=== PATIENT | male | born 1935 ===

== ENCOUNTER 2017-07-10 19:16 | Inpatient (IN) | payer BC, MEDICARE ==
[2017-07-10] MEDS ORDERED: Iodixanol 320 MG/ML 100 ML BOTTLE IV ONE (19:26)
--- NOTE | 2017-07-10 19:27 | C.PDOC ---
History Of Present Illness 81 year old male, whose PMHx includes HTN and Diabetes, is brought to the ED by EMS for evaluation after family found him unresponsive prior to arrival. As per family, patient was consuming food when he suddenly became unresponsive and showed agonal breathing. Upon EMS arrival, patient was found to have left-sided gaze with agonal breathing. Patient was intubated by EMS prior to ED arrival. As per family, patient is mildly confused at baseline but is ambulatory and verbal. Additional history is limited secondary to patient's clinical condition. Time Seen by Provider: 07/10/17 19:21 Chief Complaint (Nursing): Altered Mental Status History Per: Patient, EMS, Family History/Exam Limitations: Clinical Condition Onset/Duration Of Symptoms: Hrs Onset Of Symptoms: Cannot Confirm Onset Current Symptoms Are (Timing): Still Present Usual Baseline: Alert Confused, Ambulatory. denies: Non-verbal Exacerbating Factor(s): Unknown Additional History Per: EMS, Family Past Medical History Reviewed: Historical Data, Nursing Documentation, Vital Signs Vital Signs: Last Vital Signs Temp 98.1 F 07/24/17 16:37 Pulse 77 07/24/17 16:37 Resp 20 07/24/17 16:37 BP 139/62 07/24/17 16:37 Pulse Ox 98 07/24/17 16:37 - Medical History PMH: Diabetes, HTN Surgical History: No Surg Hx Family History: States: Unknown Family Hx Review Of Systems Review Of Systems: ROS cannot be obtained secondary to pt's inabilty to answer questions. Physical Exam - Physical Exam Appears: Non-toxic, Other (intubated, paralyzed ) Skin: Normal Color, Warm, Dry Head: Atraumatic, Normacephalic Eye(s): bilateral: Normal Inspection Oral Mucosa: Moist Neck: Supple Chest: Symmetrical, No Deformity, No Tenderness Cardiovascular: Rhythm Regular, No Murmur Respiratory: Normal Breath Sounds, No Rales, No Rhonchi, No Wheezing Extremity: Capillary Refill (less than 2 seconds ) ED Course And Treatment - Laboratory Results Result Diagrams: 07/23/17 07:35 07/23/17 07:35 ECG: Interpreted By Me, Viewed By Me ECG Rhythm: Sinus Rhythm, R BBB Interpretation Of ECG: Normal Sinus Rhythm at rate 73bpm. Right Bundle Branch Block. No previous EKG for comparison. Rate From EC - CT Scan/US CT Head Other Rad Studies (CT/US): Interpreted By Me, Read By Radiologist, Radiology Report Reviewed CT/US Interpretation: EXAM: CT Head Without Intravenous Contrast. EXAM DATE/ TIME: 07/10/2017 7:21 PM. CLINICAL HISTORY: 81 years old, male; Injury or trauma; Injury Unrespond; Initial encounter; Additional info: Code stroke. TECHNIQUE: Axial computed tomography images of the head/brain without intravenous contrast. All CT scans at. this facility use one or more dose reduction techniques, viz.: automated exposure control; ma/kV. adjustment per patient size (including targeted exams where dose is matched to indication; i.e. head);. or iterative reconstruction technique. Coronal and sagittal reformatted images were created and reviewed. COMPARISON: No relevant prior studies available. FINDINGS: Brain: Generalized atrophy and chronic white matter ischemic changes. There is no mass or acute. infarct. No hemorrhage. Ventricles: Unremarkable. No ventriculomegaly. Bones/joints: Unremarkable. No acute fracture. Soft tissues: Unremarkable. Sinuses: Minimal sinus because of thickening. No acute sinusitis. Mastoid air cells: Unremarkable as visualized. No mastoid effusion. IMPRESSION: No acute findings. CTA Head Other Rad Studies (CT/US): Interpreted By Me, Read By Radiologist, Radiology Report Reviewed CT/US Interpretation: EXAM: CT Angiography Head With Intravenous Contrast. CLINICAL HISTORY: 81 years old, male; Pain; Headache; Additional info: Stroke code. TECHNIQUE: Axial computed tomographic angiography images of the head with intravenous contrast using CT. angiography protocol. All CT scans at this facility use one or more dose reduction techniques, viz.: automated exposure control; ma/kV adjustment per patient size (including targeted exams where. dose is matched to indication; i.e. head); or iterative reconstruction technique. MIP reconstructed images were created and reviewed. Coronal and sagittal reformatted images were created and reviewed. CONTRAST: 100 mL of [id number] administered intravenously. COMPARISON: No relevant prior studies available. FINDINGS: Right internal carotid artery: No acute findings. Intracranial segment is patent with no significant. stenosis. No aneurysm. Right anterior cerebral artery: Unremarkable. No occlusion or significant stenosis. No aneurysm. Right middle cerebral artery: Unremarkable. No occlusion or significant stenosis. No aneurysm. Right posterior cerebral artery: Unremarkable. No occlusion or significant stenosis. No aneurysm. Right vertebral artery: Unremarkable as visualized. Left internal carotid artery: No acute findings. Intracranial segment is patent with no significant. stenosis. No aneurysm. Left anterior cerebral artery: Unremarkable. No occlusion or significant stenosis. No aneurysm. Left middle cerebral artery: Unremarkable. No occlusion or significant stenosis. No aneurysm. Left posterior cerebral artery: Unremarkable. No occlusion or significant stenosis. No aneurysm. Left vertebral artery: Unremarkable as visualized.Basilar artery: Unremarkable. No occlusion or significant stenosis. No aneurysm. IMPRESSION: Normal head CTA CTA Neck Other Rad Studies (CT/US): Interpreted By Me, Read By Radiologist, Radiology Report Reviewed CT/US Interpretation: EXAM: CT Angiography Neck With Intravenous Contrast. EXAM DATE/TIME: 07/10/2017 7:21 PM. CLINICAL HISTORY: 81 years old, male; Pain ; Headache; Additional info: Stroke code. TECHNIQUE: Axial computed tomographic angiography images of the neck with intravenous contrast using CT. angiography protocol. All CT scans at this facility use one or more dose reduction techniques, viz.: automated exposure control; ma/kV adjustment per patient size (including targeted exams where. dose is matched to indication; i.e. head); or iterative reconstruction technique. MIP reconstructed images were created and reviewed. Coronal and sagittal reformatted images were created and reviewed. CONTRAST: 100 mL of administered intravenously. COMPARISON: CT - HEAD W/O (CODE STROKE) 2017-07-10 19:42. FINDINGS: VASCULATURE: Right common carotid artery: Unremarkable. No significant stenosis. No dissection or occlusion. Right internal carotid artery : Unremarkable. Extracranial segment is patent with no significant. stenosis. No dissection or occlusion. Right external carotid artery: Unremarkable. No occlusion. Right vertebral artery: Unremarkable. No significant stenosis. No dissection or occlusion. Left common carotid artery: Unremarkable. No significant stenosis. No dissection or occlusion. Left internal carotid artery : Unremarkable. Extracranial segment is patent with no significant. stenosis. No dissection or occlusion. Left external carotid artery: Unremarkable. No occlusion. Left vertebral artery: Unremarkable. No significant stenosis. No dissection or occlusion. NECK: Bones/joints: No acute fracture. No dislocation. Soft tissues: Unremarkable as visualized. No mass.Tubes, lines and devices: The tip of the endotracheal tube extends into the right mainstem. bronchus. CAROTID STENOSIS REFERENCE USING NASCET CRITERIA: % ICA stenosis = ( 1 - narrowest ICA diameter/diameter of distal cervical ICA) x 100. Mild - <50% stenosis. Moderate - 50-69% stenosis. Severe - 70-94% stenosis. Near occlusion - 95-99% stenosis. Occluded - 100% stenosis. IMPRESSION: No acute vascular findings. Please note the tip of the endotracheal tube extends into the right mainstem bronchus. NIHSS Stroke Scale - How Severe is the Stoke Level of Consciousness: 3=Unresponsive LOC to Questions: 2=Neither correct LOC to commands: 2=Neither correct Best Gaze: 0=Normal Visual: 0=No visual loss Facial: 0=Normal Motor Arm - Left: NA - Amputation, joint fusion Motor Arm - Right: NA - Amputation, joint fusion Motor Leg - Left: NA - Amputation, joint fusion Motor Leg - Right: NA - Amputation, joint fusion Limb Ataxia: 0=Absent Sensory: 0=Normal Best Language: 3=Mute Dysarthia: 2=Severe, near unintelligible or worse Extinction & Inattention (Neglect): 0=Normal, no object Score: 12 Severity Of Stroke: 5-15= Moderate Stroke (pt paralyzed. unable to access) rTPA Inclusion/Exclusion - Refusal of Treatment Patient Refused Treatment: No - Inclusion Criteria for Altepase Patient is 18 years or Older: Yes Clinical DX Ischemic Stroke Cause Neurological Deficit: Yes Time of Onset Established Less Than 270 Mins Before TX Begin: No Risk/Benefit Discussed With Patient/Family Member Present: Yes Medical Decision Making Medical Decision Making: consider stroke, intracranial bleeding, infectious, cardiac etiology Progress: Bloodwork, CXR, CTA Head, CT Head, EKG ordered. IV Fluids administered. 20:[address] Boykin (neurologist afternoon nanny). Patient is not a TPA candidate. Patient had a seizure en route to ED. during ed course, pt became unresponive. pulseless, rosc s/p 1 epi cpr. pt with to complete heart block, resolved s/p atropine 1. dicussed wtih dr johnson not code heart candidiate. ekg rbbb ?pe. heparin started. accepte dicu. antibiotics started given leukocytosis , la. hyperk treated. nih- pt intubated, paralyzed unable to access. Disposition - Disposition Disposition: HOSPITALIZED Disposition Time: 11:00 Condition: CRITICAL - Clinical Impression Clinical Impression: Cardiac arrest, Hyperkalemia, Unresponsive, Respiratory failure, Heart block - Scribe Statement The provider has reviewed the documentation as recorded by the Scribe (Daria Johnson) Provider Attestation: All medical record entries made by the Scribe were at my direction and personally dictated by me. I have reviewed the chart and agree that the record accurately reflects my personal performance of the history, physical exam, medical decision making, and the department course for this patient. I have also personally directed, reviewed, and agree with the discharge instructions and disposition. Decision To Admit - Pt Status Changed To: Hospital Disposition Of: Inpatient - Admit Certification Admit to Inpatient:: After my assessment, the patient will require hospitalization for at least two midnights. This is because of the severity of symptoms shown, intensity of services needed, and/or the medical risk in this patient being treated as an outpatient. - InPatient: Physician Admission Certification:: need icu - . Bed Request Type: ICU Admitting Physician: Kartik Rea Patient Diagnosis: Cardiac arrest, Hyperkalemia, Unresponsive, Respiratory failure, Heart block
[2017-07-10] MEDS ORDERED: Sodium Chloride 0.9% 1,000 ML IV SCH (19:30)
[2017-07-10 20:21] LABS: VENOUS BLOOD GAS BASE EXCESS -6.3 mmol/L (0.0-2.0); VENOUS BLOOD GAS PCO2 66 mmHg (40-60); VENOUS BLOOD GAS PO2 41 mm/Hg (30-55); VENOUS BLOOD PH 7.16 (7.32-7.43)
[2017-07-10 20:25] LABS: BASO # 0.1 K/uL (0.0-0.2); BASO % 0.7 % (0.0-2.0); EOS # 0.4 K/uL (0.0-0.7); EOS % 3.4 % (0.0-4.0); LYMPH # 2.7 K/uL (1.0-4.3); LYMPH % 21.1 % (20.0-40.0); MEAN CELL VOLUME 78.3 fL (80.0-94.0); MEAN CORPUSCULAR HEMOGLOBIN 23.9 pg (27.0-31.0); MEAN CORPUSCULAR HGB CONC 30.6 g/dL (33.0-37.0); MEAN PLATELET VOLUME 8.4 fL (7.2-11.7); MONO % 7.6 % (0.0-10.0); NEUT # 8.5 K/uL (1.8-7.0); NEUT % 67.2 % (50.0-75.0); NRBC % 0.1 % (0.0-2.0); RBC 4.17 Mil/uL (4.40-5.90); RED CELL DISTRIBUTION WIDTH 21.5 % (11.5-14.5); WHITE BLOOD COUNT 12.7 K/uL (4.8-10.8)
[2017-07-10] MEDS ORDERED: Sodium Chloride 0.9% 500 ML IV ONE (20:26)
[2017-07-10] MEDS ORDERED: Vancomycin 1 gm/NS 200 ml 1 GM/200 ML BAG IVPB STA (20:32)
[2017-07-10] MEDS ORDERED: Piperacillin/Tazobact 3.375 gm 100 ML IVPB STA (20:32)
[2017-07-10 20:33] LABS: INR 1.2; PROTHROMBIN TIME 13.2 SECONDS (9.7-12.2)
[2017-07-10 20:36] LABS: ALB/GLOB RATIO 1.1 (1.0-2.1); ALBUMIN 3.5 g/dL (3.5-5.0); ALT/SGPT 13 U/L (21-72); AST/SGOT 31 U/L (17-59); BLOOD UREA NITROGEN 27 mg/dL (9-20); GFR AFRICAN-AMERICAN 59; GFR NON-AFRICAN AMERICAN 49; HDL CHOLESTEROL 16 mg/dL (30-70)
[2017-07-10] MEDS ORDERED: EPINEPHrine 1 mg/ml (1:1000) Inj IV ONE ×2 (20:39→21:00)
[2017-07-10 20:48] LABS: LDL CHOLESTEROL 55 mg/dL (0-129)
[2017-07-10 20:49] LABS: URINE BACTERIA RARE (<OCC); URINE BILIRUBIN NEGATIVE (NEGATIVE); URINE BLOOD NEGATIVE (NEGATIVE); URINE CLARITY Clear (Clear); URINE COLOR Yellow (YELLOW); URINE GLUCOSE (UA) 3+ mg/dL (Normal); URINE LEUKOCYTE ESTERASE NEG Leu/uL (Negative); URINE PROTEIN 2+ mg/dL (NEGATIVE); URINE UROBILINOGEN NORMAL mg/dL (0.2-1.0)
[2017-07-10] MEDS ORDERED: Piperacillin/Tazobact 3.375 gm 100 ML IVPB ONE (20:58)
[2017-07-10] MEDS ORDERED: Dextrose 50% SYRINGE Inj (50 ml) IV STA (21:34)
[2017-07-10] MEDS ORDERED: Sodium Bicarbonate (8.4%) 50 Meq Syringe IVP ONE (21:34)
[2017-07-10] MEDS ORDERED: Calcium Gluconate 4.65 mEq/10 ml Inj IVP ONE (21:34)
[2017-07-10] MEDS ORDERED: (Novolin R) Insulin Human Regular 100 units/ml vial IV ONE (21:34)
[2017-07-10 21:40] LABS: ABG ALLEN TEST P; ARTERIAL BLOOD GAS O2 SAT 98.9 % (95-98); ARTERIAL BLOOD GAS PCO2 37 mm/Hg (35-45); ARTERIAL BLOOD GAS PH 7.32 (7.35-7.45); ARTERIAL BLOOD GAS PO2 329 mm/Hg (80-100); ARTERIAL BLOOD GAS TCO2 20.2 mmol/L (22-28)
--- NOTE | 2017-07-10 21:45 | CP.PCM.CON ---
History of Present Illness - History of Present Illness History of Present Illness: CCM 81 yo male with hx HTN/DM/CABG/ Mild confusion developed decreased responsiveness and agonal breathing after eating. Pt BIBEMS afgter intubation in field. Had seizure en route to ED. While in ED had CB and cynthia then brief arrest in ED. Required 1 epi /cpr. Pt unable to give hx. CT head neg. and no TPA as per Neurology. ED discussed case with Interventional cardiology and no Cath. Pt receiving 2nd liter IV fluid when seen in ED. ROS-as noted All- [id number]/ ex ETOH/ no drugs Meds-reviewed FH- Unknown PE T- 99.1 P-105 R-22 BP- 104/60 Intubated, unresponsive Perrl Neck- No jvdlungs- bilat bs heawrt-rr aBd- benign eXt- no edema Neuro-no movement to pain Labs, EKG's, [id number] A&P Resp Failure s/p CHB /Cynthia s/p Cardiac Arrest Resp Acidosis Hyperkalemia s/p Seizure Hx HTN DM Hx CABG ADmit to ICU cont IV fluid treat hyperkalemia repeat labs/ ABG/LActate/ CE cont vent support ECHO CTA pending maintain optimal lytes Neuro checks AC started by ED GI prophylaxis Past Patient History - Past Social History Smoking Status: Unknown If Ever Smoked - CARDIAC Hx Hypertension: Yes - ENDOCRINE/METABOLIC Hx Diabetes Mellitus Type 2: Yes - PSYCHIATRIC Hx Substance Use: No (UNKNOWN) - SURGICAL HISTORY Hx Coronary Artery Bypass Graft: Yes Meds Allergies/Adverse Reactions: Allergies Allergy/AdvReac Type Severity Reaction Status Date / Time No Known Allergies Allergy Verified 07/10/17 19:23 - Medications Medications: Current Medications Sodium Chloride (Sodium Chloride 0.9%) 1,000 mls @ 100 mls/hr IV .Q10H LITTLE Last Admin: 07/10/17 20:54 Dose: 100 mls/hr Vancomycin/Sodium Chloride (Vancomycin 1 Gm/Ns 200 Ml) 1 gm in 200 mls @ 133 mls/hr IVPB STAT STA PRN Reason: Protocol Stop: 07/10/17 22:02 Norepinephrine Bitartrate 4 mg (/ Sodium Chloride) 254 mls @ 15.24 mls/hr IV .[id number] PRN; Protocol; 4 MCG/MIN PRN Reason: TITRATE PER MD ORDER Heparin Sodium/Sodium Chloride (Heparin 41163 Units/250ml 1/2 Normal Saline) 25 ,000 units in 250 mls @ 17.301 mls/hr IV .[id number] PRN; Protocol; 18 UNITS/KG/HR PRN Reason: PROTOCOL Results - Vital Signs Recent Vital Signs: Last Vital Signs Temp 99.1 F 07/10/17 19:23 Pulse 70 07/10/17 20:51 Resp 18 07/10/17 20:51 BP 131/24 L 07/10/17 20:51 Pulse Ox 100 07/10/17 20:51 - Labs Result Diagrams: 07/10/17 20:21 07/10/17 20:21 Labs: Laboratory Results - last 24 hr 07/10/17 07/10/17 07/10/17 20:16 20:21 20:21 WBC 12.7 H RBC 4.17 L Hgb 10.0 L Hct 32.6 L MCV 78.3 L MCH 23.9 L MCHC 30.6 L RDW 21.5 H Plt Count 250 MPV 8.4 Neut % (Auto) 67.2 Lymph % (Auto) 21.1 [place] % (Auto) 7.6 Eos % (Auto) 3.4 Baso % (Auto) 0.7 Neut # (Auto) 8.5 H Lymph # (Auto) 2.7 [place] # (Auto) 1.0 H Eos # (Auto) 0.4 Baso # (Auto) 0.1 PT 13.2 H INR 1.2 APTT 32 pO2 41 VBG pH 7.16 L* VBG pCO2 66 H* VBG HCO3 19.0 VBG Total CO2 25.5 VBG O2 Sat (Calc) 67.5 H VBG Base Excess -6.3 L VBG Potassium 5.7 H Sodium 138.0 Chloride 105.0 Glucose 290 H Lactate 4.8 H* FiO2 100.0 PEEP 7 Crit Value Called To Dr mckeon Crit Value Called By Ga.rt Crit Value Read Back Y Blood Gas Notified Time 2019 Potassium Carbon Dioxide Anion Gap BUN Creatinine Est GFR ( Amer) Est GFR (Non-Af Amer) Random Glucose Calcium Total Bilirubin AST ALT Alkaline Phosphatase Troponin I Total Protein Albumin Globulin Albumin/Globulin Ratio Triglycerides Cholesterol LDL Cholesterol Direct HDL Cholesterol Venous Blood Potassium 5.7 H Urine Color Urine Clarity Urine pH Ur Specific [place] Urine Protein Urine Glucose (UA) Urine Ketones Urine Blood Urine Nitrate Urine Bilirubin Urine Urobilinogen Ur Leukocyte Esterase Urine WBC (Auto) Urine RBC (Auto) Urine Bacteria Blood Type Antibody Screen 07/10/17 07/10/17 07/10/17 20:21 20:21 20:35 WBC RBC Hgb Hct MCV MCH MCHC RDW Plt Count MPV Neut % (Auto) Lymph % (Auto) [place] % (Auto) Eos % (Auto) Baso % (Auto) Neut # (Auto) Lymph # (Auto) [place] # (Auto) Eos # (Auto) Baso # (Auto) PT INR APTT pO2 VBG pH VBG pCO2 VBG HCO3 VBG Total CO2 VBG O2 Sat (Calc) VBG Base Excess VBG Potassium Sodium 143 Chloride 103 Glucose Lactate FiO2 PEEP Crit Value Called To Crit Value Called By Crit Value Read Back Blood Gas Notified Time Potassium 5.6 H Carbon Dioxide 22 Anion Gap 24 H BUN 27 H Creatinine 1.4 Est GFR ( Amer) 59 Est GFR (Non-Af Amer) 49 Random Glucose 263 H Calcium 8.0 L Total Bilirubin 0.3 AST 31 ALT 13 L Alkaline Phosphatase 77 Troponin I < 0.0120 Total Protein 6.7 Albumin 3.5 Globulin 3.2 Albumin/Globulin Ratio 1.1 Triglycerides 223 H Cholesterol 110 LDL Cholesterol Direct 55 HDL Cholesterol 16 L Venous Blood Potassium Urine Color Yellow Urine Clarity Clear Urine pH 6.0 Ur Specific [place] 1.038 H Urine Protein 2+ H Urine Glucose (UA) 3+ H Urine Ketones Negative Urine Blood Negative Urine Nitrate Negative Urine Bilirubin Negative Urine Urobilinogen Normal Ur Leukocyte Esterase Neg Urine WBC (Auto) 1 Urine RBC (Auto) 4 H Urine Bacteria Rare Blood Type O POSITIVE Antibody Screen Negative Assessment & Plan (1) Respiratory failure Status: Acute (2) Cardiac arrest Status: Acute (3) Seizure Status: Acute (4) CHB (complete heart block) Status: Resolved (5) Hyperkalemia Status: Acute
[2017-07-10] MEDS: Heparin25000 units/250ml 1/2NS 25,000 UNITS/250 ML BAG IV PRN (21:48)
[2017-07-11] MEDS: Sodium Chloride 0.9% 1,000 ML IV SCH ×3 (00:14→08:17)
[2017-07-11 04:52] LABS: ARTERIAL BLOOD GAS HCO3 24.3 mmol/L (21-28); ARTERIAL BLOOD GAS HEMOGLOBIN 8.4 g/dL (11.7-17.4); ARTERIAL BLOOD GAS O2 SAT 98.5 % (95-98); ARTERIAL BLOOD GAS PCO2 34 mm/Hg (35-45); ARTERIAL BLOOD GAS PH 7.44 (7.35-7.45); ARTERIAL BLOOD GAS PO2 180 mm/Hg (80-100); ARTERIAL BLOOD GAS TCO2 24.1 mmol/L (22-28)
[2017-07-11 05:02] LABS: BASO % 0.5 % (0.0-2.0); EOS # 0.3 K/uL (0.0-0.7); EOS % 4.6 % (0.0-4.0); HEMOGLOBIN 8.2 g/dL (12.0-18.0); LYMPH % 15.9 % (20.0-40.0); MEAN CELL VOLUME 76.5 fL (80.0-94.0); MEAN CORPUSCULAR HEMOGLOBIN 23.7 pg (27.0-31.0); MEAN CORPUSCULAR HGB CONC 30.9 g/dL (33.0-37.0); MEAN PLATELET VOLUME 8.5 fL (7.2-11.7); MONO # 0.6 K/uL (0.0-0.8); MONO % 8.7 % (0.0-10.0); NEUT # 4.6 K/uL (1.8-7.0); NEUT % 70.3 % (50.0-75.0); RBC 3.45 Mil/uL (4.40-5.90); RED CELL DISTRIBUTION WIDTH 21.2 % (11.5-14.5); WHITE BLOOD COUNT 6.6 K/uL (4.8-10.8)
[2017-07-11 05:28] LABS: ALBUMIN 2.8 g/dL (3.5-5.0); ALT/SGPT 28 U/L (21-72); AST/SGOT 33 U/L (17-59); BLOOD UREA NITROGEN 23 mg/dL (9-20); CALCIUM 7.4 mg/dl (8.6-10.4); GFR AFRICAN-AMERICAN > 60; GFR NON-AFRICAN AMERICAN > 60
[2017-07-11] MEDS ORDERED: levETIRAcetam 1,000 MG in Sodium Chloride 0.9% 100 ML IVPB ONE (10:09)
[2017-07-11] MEDS ORDERED: Iodixanol 320 MG/ML 100 ML BOTTLE IV ONE (10:26)
--- NOTE | 2017-07-11 10:53 | CT ---
PROCEDURE: CT scan brain dated 07/10/2017 HISTORY: Code stroke COMPARISON: None available. TECHNIQUE: Axial computed tomography images were obtained through the head/brain without intravenous contrast. Radiation dose: Total exam DLP = 1226.06 mGy-cm. This CT exam was performed using one or more of the following dose reduction techniques: Automated exposure control, adjustment of the mA and/or kV according to patient size, and/or use of iterative reconstruction technique. FINDINGS: HEMORRHAGE: No intracranial hemorrhage. BRAIN: Mild to moderate diffuse/confluent chronic periventricular white matter ischemic changes seen extending peripherally into the deep and subcortical white matter of both cerebral hemispheres. . There also appears to be a few scattered chronic bilateral basal nuclei lacunar type infarcts. Note that the possibility of a small hyperacute infarct not excluded. No obvious parenchymal nor extra-axial masses scar seen on this noncontrast study. . Mildly enlarged cisterna magna Moderate generalized volume loss. Vascular calcifications involving the carotid siphons and vertebral arteries VENTRICLES: No obstructive hydrocephalus. CALVARIUM: There are no acute calvarial fracture seen. PARANASAL SINUSES: Minor mucosal thickening right maxillary antrum and a few ethmoid air cells. Note made of moderate amount of fluid within the the posterior aspect of the nasopharynx extending into the posterior margins of the nasal cavities likely due to the presence of in situ ETT. MASTOID AIR CELLS: Unremarkable as visualized. No inflammatory changes. OTHER FINDINGS: Changes of bilateral cataract surgery. IMPRESSION: No acute intracranial hemorrhage. Mild chronic white matter ischemic changes. This suspected few chronic bilateral basal nuclei lacunar type infarcts. Note that the possibility of a small hyperacute not excluded Moderate generalized volume loss.
--- NOTE | 2017-07-11 11:46 | RAD ---
HISTORY: Code Stroke COMPARISON: Comparison made with prior radiograph chest dated FINDINGS: The the In situ ETT, the tip of which lies approximately the 15 mm above josefina. LUNGS: Low lung volumes with crowded bronchovascular markings and bibasilar atelectasis left greater than right. PLEURA: No significant pleural effusion identified, no pneumothorax apparent. CARDIOVASCULAR: Sternotomy wires again noted. Heart remains enlarged. OSSEOUS STRUCTURES: No significant abnormalities. VISUALIZED UPPER ABDOMEN: Normal. OTHER FINDINGS: None. IMPRESSION: In situ ETT as above. Mild bibasilar atelectasis left greater than right.
--- NOTE | 2017-07-11 11:47 | RAD ---
HISTORY: repeat COMPARISON: Comparison made with prior study 07/10/2017 FINDINGS: In situ ETT, the tip of which lies approximately approximately 18 mm above josefina LUNGS: Bibasilar atelectasis left greater than right PLEURA: No significant pleural effusion identified, no pneumothorax apparent. CARDIOVASCULAR: Sternotomy wires again noted heart size unchanged OSSEOUS STRUCTURES: No significant abnormalities. VISUALIZED UPPER ABDOMEN: Normal. OTHER FINDINGS: None. IMPRESSION: In situ ETT as above. Bibasilar atelectasis left greater than right.
--- NOTE | 2017-07-11 11:56 | RAD ---
HISTORY: ON VENT COMPARISON: Comparison chest 07/10/2017 at 2119 hours theNo prior. FINDINGS: In situ ETT, tip of which lies approximately 3.5 cm above josefina. LUNGS: Minor bibasilar atelectasis. Questionable small left-sided effusion PLEURA: No significant pleural effusion identified, no pneumothorax apparent. CARDIOVASCULAR: Sternotomy wires and CABG clips again noted. Heart appears enlarged. OSSEOUS STRUCTURES: No significant abnormalities. VISUALIZED UPPER ABDOMEN: Normal. OTHER FINDINGS: None. IMPRESSION: ETT as above. Minor bibasilar atelectasis with questionable small left effusion
--- NOTE | 2017-07-11 12:13 | CP.CCUPN ---
CCU Subjective - Physician Review Events Since Last Encounter (Free Text): 07/11/17 12:10 patient seen and examined in the intensive care unit. Case discussed with house staff in the morning rounds. Patient admitted last night for confusion, decreased responsiveness and agonal breathing after eating. Pt intubated in the field. Had seizure en route to ED. While in ED had cynthia then brief arrest. Required 1 epi /cpr. overnight patient was started on fentanyl drip for restlessness and moving all extremities Started on heparin drip CCU Objective - Vital Signs / Intake & Output Vital Signs (Last 4 hours): Vital Signs Pulse Resp BP Pulse Ox 07/11/17 10:00 69 21 140/47 L 100 07/11/17 09:00 68 22 128/45 L 99 Intake and Output (Last 8hrs): Intake & Output 07/10/17 07/11/17 07/11/17 22:59 06:59 14:59 Intake Total 1886.9 1043.9 Output Total 1130 275 Balance 756.9 768.9 Weight 211 lb 14.4 oz 213 lb 14.4 oz Intake: IV 116 242 Intake, IV Amount 1770.9 801.9 Left antecubital main 121.1 57.6 port Right antecubital Y port 1400 600 Right antecubital main 249.8 144.3 port Output: Urine 1130 275 Urethral (Garza) 1130 275 - Physical Exam Head: Positive for: Atraumatic, Normocephalic Pupils: Positive for: PERRL Mouth: Positive for: Moist Mucous Membranes Neck: Positive for: Trachea Midline Respiratory/Chest: Positive for: Clear to Auscultation Cardiovascular: Positive for: Irregular Rhythm Abdomen: Positive for: Normal Bowel Sounds Upper Extremity: Positive for: Normal Inspection Lower Extremity: Positive for: Normal Inspection Skin: Positive for: Warm - Medications Active Medications: Active Medications Generic Name Dose Route Start Last Admin Trade Name Freq PRN Reason Stop Dose Admin Norepinephrine Bitartrate 4 mg 254 mls @ 15.24 mls/hr 07/10/17 21:17 / Sodium Chloride IV .[id number] PRN TITRATE PER MD ORDER Protocol 4 MCG/MIN Heparin Sodium/Sodium Chloride 25,000 units in 250 mls @ 17.301 mls/hr 21:18 07/11/17 07:45 Heparin 92744 Units/250ml 1/2 Normal Saline IV 15 units/kg/hr .[id number] PRN 14.417 mls/hr PROTOCOL Titration Protocol 18 UNITS/KG/HR Fentanyl Citrate 2,500 mcg/ 250 mls @ 19.22 mls/hr 07/10/17 23:15 07/11/17 08 :16 Sodium Chloride IV 5 mcg/kg/hr .[id number] LITTLE 48.05 mls/hr Protocol Administration 2 MCG/KG/HR Levetiracetam 500 mg/ Sodium 105 mls @ 420 mls/hr 07/11/17 22:00 Chloride IVPB Q12H LITTLE Pantoprazole Sodium 40 mg 07/11/17 00:00 07/11/17 09:37 Protonix Inj IVP 40 mg DAILY LITTLE Administration - Patient Studies Lab Studies: Lab Studies 07/11/17 07/11/17 07/11/17 Range/Units 12:00 11:32 08:36 WBC (4.8-10.8) K/uL RBC (4.40-5.90) Mil/uL Hgb (12.0-18.0) g/dL Hct (35.0-51.0) % MCV (80.0-94.0) fL MCH (27.0-31.0) pg MCHC (33.0-37.0) g/dL RDW (11.5-14.5) % Plt Count (130-400) K/uL MPV (7.2-11.7) fL Neut % (Auto) (50.0-75.0) % Lymph % (Auto) (20.0-40.0) % Gordon % (Auto) (0.0-10.0) % Eos % (Auto) (0.0-4.0) % Baso % (Auto) (0.0-2.0) % Neut # (Auto) (1.8-7.0) K/uL Lymph # (Auto) (1.0-4.3) K/uL Gordon # (Auto) (0.0-0.8) K/uL Eos # (Auto) (0.0-0.7) K/uL Baso # (Auto) (0.0-0.2) K/uL PT (9.7-12.2) SECONDS INR APTT 74 H D (21-34) SECONDS Puncture Site pCO2 (35-45) mm/Hg pO2 (30-55) mm/Hg HCO3 (21-28) mmol/L ABG pH (7.35-7.45) ABG Total CO2 (22-28) mmol/L ABG O2 Saturation (95-98) % ABG Base Excess (-2.0-3.0) mmol/L ABG Hemoglobin (11.7-17.4) g/dL ABG Carboxyhemoglobin (0.5-1.5) % POC ABG HHb (Measured) (0.0-5.0) % ABG Methemoglobin (0.0-3.0) % Ming Test ABG Potassium (3.6-5.2) mmol/L VBG pH (7.32-7.43) VBG pCO2 (40-60) mmHg VBG HCO3 mmol/L VBG Total CO2 (22-28) mmol/L VBG O2 Sat (Calc) (40-65) % VBG Base Excess (0.0-2.0) mmol/L VBG Potassium (3.6-5.2) mmol/L A-a O2 Difference mm/Hg Respiratory Index Hgb O2 Saturation (95.0-98.0) % Sodium (132-148) mmol/l Chloride (98-107) mmol/L Glucose (75-110) mg/dl Lactate (0.7-2.1) mmol/L Vent Mode Mechanical Rate FiO2 % Tidal Volume PEEP Crit Value Called To Crit Value Called By Crit Value Read Back Blood Gas Notified Time Potassium (3.6-5.2) mmol/L Carbon Dioxide (22-30) mmol/L Anion Gap (10-20) BUN (9-20) mg/dL Creatinine (0.8-1.5) mg/dL Est GFR ( Amer) Est GFR (Non-Af Amer) POC Glucose (mg/dL) 110 121 H (65-110) mg/dL Random Glucose (75-110) mg/dL Hemoglobin A1c (4.2-6.5) % Calcium (8.6-10.4) mg/dl Phosphorus (2.5-4.5) mg/dL Magnesium (1.6-2.3) mg/dL Total Bilirubin (0.2-1.3) mg/dL AST (17-59) U/L ALT (21-72) U/L Alkaline Phosphatase (38-126) U/L Troponin I (0.00-0.120) ng/mL Total Protein (6.3-8.3) g/dL Albumin (3.5-5.0) g/dL Globulin (2.2-3.9) gm/dL Albumin/Globulin Ratio (1.0-2.1) Triglycerides (0-149) mg/dL Cholesterol (0-199) mg/dL LDL Cholesterol Direct (0-129) mg/dL HDL Cholesterol (30-70) mg/dL Arterial Blood Potassium (3.6-5.2) mmol/L Venous Blood Potassium (3.6-5.2) mmol/L Urine Color (YELLOW) Urine Clarity (Clear) Urine pH (5.0-8.0) Ur Specific [place] (1.003-1.030) Urine Protein (NEGATIVE) mg/dL Urine Glucose (UA) (Normal) mg/dL Urine Ketones (NEGATIVE) mg/dL Urine Blood (NEGATIVE) Urine Nitrate (NEGATIVE) Urine Bilirubin (NEGATIVE) Urine Urobilinogen (0.2-1.0) mg/dL Ur Leukocyte Esterase (Negative) Di/uL Urine WBC (Auto) (0-5) /hpf Urine RBC (Auto) (0-3) /hpf Urine Bacteria (<OCC) Blood Type Antibody Screen 07/11/17 07/11/17 07/11/17 Range/Units 06:13 04:59 04:59 WBC 6.6 (4.8-10.8) K/uL RBC 3.45 L (4.40-5.90) Mil/uL Hgb 8.2 L (12.0-18.0) g/dL Hct 26.4 L (35.0-51.0) % MCV 76.5 L (80.0-94.0) fL MCH 23.7 L (27.0-31.0) pg MCHC 30.9 L (33.0-37.0) g/dL RDW 21.2 H (11.5-14.5) % Plt Count 147 D (130-400) K/uL MPV 8.5 (7.2-11.7) fL Neut % (Auto) 70.3 (50.0-75.0) % Lymph % (Auto) 15.9 L (20.0-40.0) % Gordon % (Auto) 8.7 (0.0-10.0) % Eos % (Auto) 4.6 H (0.0-4.0) % Baso % (Auto) 0.5 (0.0-2.0) % Neut # (Auto) 4.6 (1.8-7.0) K/uL Lymph # (Auto) 1.0 (1.0-4.3) K/uL Gordon # (Auto) 0.6 (0.0-0.8) K/uL Eos # (Auto) 0.3 (0.0-0.7) K/uL Baso # (Auto) 0.0 (0.0-0.2) K/uL PT (9.7-12.2) SECONDS INR APTT 135 H* D (21-34) SECONDS Puncture Site pCO2 (35-45) mm/Hg pO2 (30-55) mm/Hg HCO3 (21-28) mmol/L ABG pH (7.35-7.45) ABG Total CO2 (22-28) mmol/L ABG O2 Saturation (95-98) % ABG Base Excess (-2.0-3.0) mmol/L ABG Hemoglobin (11.7-17.4) g/dL ABG Carboxyhemoglobin (0.5-1.5) % POC ABG HHb (Measured) (0.0-5.0) % ABG Methemoglobin (0.0-3.0) % Ming Test ABG Potassium (3.6-5.2) mmol/L VBG pH (7.32-7.43) VBG pCO2 (40-60) mmHg VBG HCO3 mmol/L VBG Total CO2 (22-28) mmol/L VBG O2 Sat (Calc) (40-65) % VBG Base Excess (0.0-2.0) mmol/L VBG Potassium (3.6-5.2) mmol/L A-a O2 Difference mm/Hg Respiratory Index Hgb O2 Saturation (95.0-98.0) % Sodium 143 (132-148) mmol/l Chloride 112 H (98-107) mmol/L Glucose (75-110) mg/dl Lactate (0.7-2.1) mmol/L Vent Mode Mechanical Rate FiO2 % Tidal Volume PEEP Crit Value Called To Crit Value Called By Crit Value Read Back Blood Gas Notified Time Potassium 4.8 (3.6-5.2) mmol/L Carbon Dioxide 23 (22-30) mmol/L Anion Gap 13 (10-20) BUN 23 H (9-20) mg/dL Creatinine 1.1 (0.8-1.5) mg/dL Est GFR ( Amer) > 60 Est GFR (Non-Af Amer) > 60 POC Glucose (mg/dL) (65-110) mg/dL Random Glucose 107 (75-110) mg/dL Hemoglobin A1c (4.2-6.5) % Calcium 7.4 L (8.6-10.4) mg/dl Phosphorus 3.6 (2.5-4.5) mg/dL Magnesium 1.9 (1.6-2.3) mg/dL Total Bilirubin 0.2 (0.2-1.3) mg/dL AST 33 (17-59) U/L ALT 28 (21-72) U/L Alkaline Phosphatase 65 (38-126) U/L Troponin I (0.00-0.120) ng/mL Total Protein 5.6 L (6.3-8.3) g/dL Albumin 2.8 L (3.5-5.0) g/dL Globulin 2.8 (2.2-3.9) gm/dL Albumin/Globulin Ratio 1.0 (1.0-2.1) Triglycerides (0-149) mg/dL Cholesterol (0-199) mg/dL LDL Cholesterol Direct (0-129) mg/dL HDL Cholesterol (30-70) mg/dL Arterial Blood Potassium (3.6-5.2) mmol/L Venous Blood Potassium (3.6-5.2) mmol/L Urine Color (YELLOW) Urine Clarity (Clear) Urine pH (5.0-8.0) Ur Specific [place] (1.003-1.030) Urine Protein (NEGATIVE) mg/dL Urine Glucose (UA) (Normal) mg/dL Urine Ketones (NEGATIVE) mg/dL Urine Blood (NEGATIVE) Urine Nitrate (NEGATIVE) Urine Bilirubin (NEGATIVE) Urine Urobilinogen (0.2-1.0) mg/dL Ur Leukocyte Esterase (Negative) Di/uL Urine WBC (Auto) (0-5) /hpf Urine RBC (Auto) (0-3) /hpf Urine Bacteria (<OCC) Blood Type Antibody Screen 07/11/17 07/10/17 07/10/17 Range/Units 04:45 21:35 20:35 WBC (4.8-10.8) K/uL RBC (4.40-5.90) Mil/uL Hgb (12.0-18.0) g/dL Hct (35.0-51.0) % MCV (80.0-94.0) fL MCH (27.0-31.0) pg MCHC (33.0-37.0) g/dL RDW (11.5-14.5) % Plt Count (130-400) K/uL MPV (7.2-11.7) fL Neut % (Auto) (50.0-75.0) % Lymph % (Auto) (20.0-40.0) % Gordon % (Auto) (0.0-10.0) % Eos % (Auto) (0.0-4.0) % Baso % (Auto) (0.0-2.0) % Neut # (Auto) (1.8-7.0) K/uL Lymph # (Auto) (1.0-4.3) K/uL Gordon # (Auto) (0.0-0.8) K/uL Eos # (Auto) (0.0-0.7) K/uL Baso # (Auto) (0.0-0.2) K/uL PT (9.7-12.2) SECONDS INR APTT (21-34) SECONDS Puncture Site Rb Lr pCO2 34 L 37 (35-45) mm/Hg pO2 180 H 329 H (30-55) mm/Hg HCO3 24.3 20.0 L (21-28) mmol/L ABG pH 7.44 7.32 L (7.35-7.45) ABG Total CO2 24.1 20.2 L (22-28) mmol/L ABG O2 Saturation 98.5 H 98.9 H (95-98) % ABG Base Excess -0.8 -6.4 L (-2.0-3.0) mmol/L ABG Hemoglobin 8.4 L (11.7-17.4) g/dL ABG Carboxyhemoglobin 0.7 (0.5-1.5) % POC ABG HHb (Measured) 1.5 (0.0-5.0) % ABG Methemoglobin 0.5 (0.0-3.0) % Ming Test Na P ABG Potassium 5.1 (3.6-5.2) mmol/L VBG pH (7.32-7.43) VBG pCO2 (40-60) mmHg VBG HCO3 mmol/L VBG Total CO2 (22-28) mmol/L VBG O2 Sat (Calc) (40-65) % VBG Base Excess (0.0-2.0) mmol/L VBG Potassium (3.6-5.2) mmol/L A-a O2 Difference 134.0 338.0 mm/Hg Respiratory Index 0.7 1.0 Hgb O2 Saturation 97.3 (95.0-98.0) % Sodium 140.0 (132-148) mmol/l Chloride 112.0 H (98-107) mmol/L Glucose 247 H (75-110) mg/dl Lactate 2.5 H (0.7-2.1) mmol/L Vent Mode Prvc A/c Mechanical Rate 22 FiO2 50.0 100.0 % Tidal Volume 500 500 PEEP 7 7 Crit Value Called To Crit Value Called By Crit Value Read Back Blood Gas Notified Time Potassium (3.6-5.2) mmol/L Carbon Dioxide (22-30) mmol/L Anion Gap (10-20) BUN (9-20) mg/dL Creatinine (0.8-1.5) mg/dL Est GFR ( Amer) Est GFR (Non-Af Amer) POC Glucose (mg/dL) (65-110) mg/dL Random Glucose (75-110) mg/dL Hemoglobin A1c (4.2-6.5) % Calcium (8.6-10.4) mg/dl Phosphorus (2.5-4.5) mg/dL Magnesium (1.6-2.3) mg/dL Total Bilirubin (0.2-1.3) mg/dL AST (17-59) U/L ALT (21-72) U/L Alkaline Phosphatase (38-126) U/L Troponin I (0.00-0.120) ng/mL Total Protein (6.3-8.3) g/dL Albumin (3.5-5.0) g/dL Globulin (2.2-3.9) gm/dL Albumin/Globulin Ratio (1.0-2.1) Triglycerides (0-149) mg/dL Cholesterol (0-199) mg/dL LDL Cholesterol Direct (0-129) mg/dL HDL Cholesterol (30-70) mg/dL Arterial Blood Potassium 5.1 (3.6-5.2) mmol/L Venous Blood Potassium (3.6-5.2) mmol/L Urine Color Yellow (YELLOW) Urine Clarity Clear (Clear) Urine pH 6.0 (5.0-8.0) Ur Specific [place] 1.038 H (1.003-1.030) Urine Protein 2+ H (NEGATIVE) mg/dL Urine Glucose (UA) 3+ H (Normal) mg/dL Urine Ketones Negative (NEGATIVE) mg/dL Urine Blood Negative (NEGATIVE) Urine Nitrate Negative (NEGATIVE) Urine Bilirubin Negative (NEGATIVE) Urine Urobilinogen Normal (0.2-1.0) mg/dL Ur Leukocyte Esterase Neg (Negative) Di/uL Urine WBC (Auto) 1 (0-5) /hpf Urine RBC (Auto) 4 H (0-3) /hpf Urine Bacteria Rare (<OCC) Blood Type Antibody Screen 07/10/17 07/10/17 07/10/17 Range/Units 20:21 20:21 20:21 WBC (4.8-10.8) K/uL RBC (4.40-5.90) Mil/uL Hgb (12.0-18.0) g/dL Hct (35.0-51.0) % MCV (80.0-94.0) fL MCH (27.0-31.0) pg MCHC (33.0-37.0) g/dL RDW (11.5-14.5) % Plt Count (130-400) K/uL MPV (7.2-11.7) fL Neut % (Auto) (50.0-75.0) % Lymph % (Auto) (20.0-40.0) % Gordon % (Auto) (0.0-10.0) % Eos % (Auto) (0.0-4.0) % Baso % (Auto) (0.0-2.0) % Neut # (Auto) (1.8-7.0) K/uL Lymph # (Auto) (1.0-4.3) K/uL Gordon # (Auto) (0.0-0.8) K/uL Eos # (Auto) (0.0-0.7) K/uL Baso # (Auto) (0.0-0.2) K/uL PT (9.7-12.2) SECONDS INR APTT (21-34) SECONDS Puncture Site pCO2 (35-45) mm/Hg pO2 (30-55) mm/Hg HCO3 (21-28) mmol/L ABG pH (7.35-7.45) ABG Total CO2 (22-28) mmol/L ABG O2 Saturation (95-98) % ABG Base Excess (-2.0-3.0) mmol/L ABG Hemoglobin (11.7-17.4) g/dL ABG Carboxyhemoglobin (0.5-1.5) % POC ABG HHb (Measured) (0.0-5.0) % ABG Methemoglobin (0.0-3.0) % Ming Test ABG Potassium (3.6-5.2) mmol/L VBG pH (7.32-7.43) VBG pCO2 (40-60) mmHg VBG HCO3 mmol/L VBG Total CO2 (22-28) mmol/L VBG O2 Sat (Calc) (40-65) % VBG Base Excess (0.0-2.0) mmol/L VBG Potassium (3.6-5.2) mmol/L A-a O2 Difference mm/Hg Respiratory Index Hgb O2 Saturation (95.0-98.0) % Sodium 143 (132-148) mmol/l Chloride 103 (98-107) mmol/L Glucose (75-110) mg/dl Lactate (0.7-2.1) mmol/L Vent Mode Mechanical Rate FiO2 % Tidal Volume PEEP Crit Value Called To Crit Value Called By Crit Value Read Back Blood Gas Notified Time Potassium 5.6 H (3.6-5.2) mmol/L Carbon Dioxide 22 (22-30) mmol/L Anion Gap 24 H (10-20) BUN 27 H (9-20) mg/dL Creatinine 1.4 (0.8-1.5) mg/dL Est GFR ( Amer) 59 Est GFR (Non-Af Amer) 49 POC Glucose (mg/dL) (65-110) mg/dL Random Glucose 263 H (75-110) mg/dL Hemoglobin A1c 7.2 H (4.2-6.5) % Calcium 8.0 L (8.6-10.4) mg/dl Phosphorus (2.5-4.5) mg/dL Magnesium (1.6-2.3) mg/dL Total Bilirubin 0.3 (0.2-1.3) mg/dL AST 31 (17-59) U/L ALT 13 L (21-72) U/L Alkaline Phosphatase 77 (38-126) U/L Troponin I < 0.0120 (0.00-0.120) ng/mL Total Protein 6.7 (6.3-8.3) g/dL Albumin 3.5 (3.5-5.0) g/dL Globulin 3.2 (2.2-3.9) gm/dL Albumin/Globulin Ratio 1.1 (1.0-2.1) Triglycerides 223 H (0-149) mg/dL Cholesterol 110 (0-199) mg/dL LDL Cholesterol Direct 55 (0-129) mg/dL HDL Cholesterol 16 L (30-70) mg/dL Arterial Blood Potassium (3.6-5.2) mmol/L Venous Blood Potassium (3.6-5.2) mmol/L Urine Color (YELLOW) Urine Clarity (Clear) Urine pH (5.0-8.0) Ur Specific [place] (1.003-1.030) Urine Protein (NEGATIVE) mg/dL Urine Glucose (UA) (Normal) mg/dL Urine Ketones (NEGATIVE) mg/dL Urine Blood (NEGATIVE) Urine Nitrate (NEGATIVE) Urine Bilirubin (NEGATIVE) Urine Urobilinogen (0.2-1.0) mg/dL Ur Leukocyte Esterase (Negative) Di/uL Urine WBC (Auto) (0-5) /hpf Urine RBC (Auto) (0-3) /hpf Urine Bacteria (<OCC) Blood Type O POSITIVE Antibody Screen Negative 07/10/17 07/10/1707/10/18 Range/Units 20:21 20:21 20:16 WBC 12.7 H (4.8-10.8) K/uL RBC 4.17 L (4.40-5.90) Mil/uL Hgb 10.0 L (12.0-18.0) g/dL Hct 32.6 L (35.0-51.0) % MCV 78.3 L (80.0-94.0) fL MCH 23.9 L (27.0-31.0) pg MCHC 30.6 L (33.0-37.0) g/dL RDW 21.5 H (11.5-14.5) % Plt Count 250 (130-400) K/uL MPV 8.4 (7.2-11.7) fL Neut % (Auto) 67.2 (50.0-75.0) % Lymph % (Auto) 21.1 (20.0-40.0) % Gordon % (Auto) 7.6 (0.0-10.0) % Eos % (Auto) 3.4 (0.0-4.0) % Baso % (Auto) 0.7 (0.0-2.0) % Neut # (Auto) 8.5 H (1.8-7.0) K/uL Lymph # (Auto) 2.7 (1.0-4.3) K/uL Gordon # (Auto) 1.0 H (0.0-0.8) K/uL Eos # (Auto) 0.4 (0.0-0.7) K/uL Baso # (Auto) 0.1 (0.0-0.2) K/uL PT 13.2 H (9.7-12.2) SECONDS INR 1.2 APTT 32 (21-34) SECONDS Puncture Site pCO2 (35-45) mm/Hg pO2 41 (30-55) mm/Hg HCO3 (21-28) mmol/L ABG pH (7.35-7.45) ABG Total CO2 (22-28) mmol/L ABG O2 Saturation (95-98) % ABG Base Excess (-2.0-3.0) mmol/L ABG Hemoglobin (11.7-17.4) g/dL ABG Carboxyhemoglobin (0.5-1.5) % POC ABG HHb (Measured) (0.0-5.0) % ABG Methemoglobin (0.0-3.0) % Ming Test ABG Potassium (3.6-5.2) mmol/L VBG pH 7.16 L* (7.32-7.43) VBG pCO2 66 H* (40-60) mmHg VBG HCO3 19.0 mmol/L VBG Total CO2 25.5 (22-28) mmol/L VBG O2 Sat (Calc) 67.5 H (40-65) % VBG Base Excess -6.3 L (0.0-2.0) mmol/L VBG Potassium 5.7 H (3.6-5.2) mmol/L A-a O2 Difference mm/Hg Respiratory Index Hgb O2 Saturation (95.0-98.0) % Sodium 138.0 (132-148) mmol/l Chloride 105.0 (98-107) mmol/L Glucose 290 H (75-110) mg/dl Lactate 4.8 H* (0.7-2.1) mmol/L Vent Mode Mechanical Rate FiO2 100.0 % Tidal Volume PEEP 7 Crit Value Called To Dr [email or web address] Crit Value Called By [email or web address] Crit Value Read Back Y Blood Gas Notified Time 2019 Potassium (3.6-5.2) mmol/L Carbon Dioxide (22-30) mmol/L Anion Gap (10-20) BUN (9-20) mg/dL Creatinine (0.8-1.5) mg/dL Est GFR ( Amer) Est GFR (Non-Af Amer) POC Glucose (mg/dL) (65-110) mg/dL Random Glucose (75-110) mg/dL Hemoglobin A1c (4.2-6.5) % Calcium (8.6-10.4) mg/dl Phosphorus (2.5-4.5) mg/dL Magnesium (1.6-2.3) mg/dL Total Bilirubin (0.2-1.3) mg/dL AST (17-59) U/L ALT (21-72) U/L Alkaline Phosphatase (38-126) U/L Troponin I (0.00-0.120) ng/mL Total Protein (6.3-8.3) g/dL Albumin (3.5-5.0) g/dL Globulin (2.2-3.9) gm/dL Albumin/Globulin Ratio (1.0-2.1) Triglycerides (0-149) mg/dL Cholesterol (0-199) mg/dL LDL Cholesterol Direct (0-129) mg/dL HDL Cholesterol (30-70) mg/dL Arterial Blood Potassium (3.6-5.2) mmol/L Venous Blood Potassium 5.7 H (3.6-5.2) mmol/L Urine Color (YELLOW) Urine Clarity (Clear) Urine pH (5.0-8.0) Ur Specific [place] (1.003-1.030) Urine Protein (NEGATIVE) mg/dL Urine Glucose (UA) (Normal) mg/dL Urine Ketones (NEGATIVE) mg/dL Urine Blood (NEGATIVE) Urine Nitrate (NEGATIVE) Urine Bilirubin (NEGATIVE) Urine Urobilinogen (0.2-1.0) mg/dL Ur Leukocyte Esterase (Negative) Di/uL Urine WBC (Auto) (0-5) /hpf Urine RBC (Auto) (0-3) /hpf Urine Bacteria (<OCC) Blood Type Antibody Screen Laboratory Results - last 24 hr 07/10/17 07/10/17 07/10/17 20:16 20:21 20:21 WBC 12.7 H RBC 4.17 L Hgb 10.0 L Hct 32.6 L MCV 78.3 L MCH 23.9 L MCHC 30.6 L RDW 21.5 H Plt Count 250 MPV 8.4 Neut % (Auto) 67.2 Lymph % (Auto) 21.1 Gordon % (Auto) 7.6 Eos % (Auto) 3.4 Baso % (Auto) 0.7 Neut # (Auto) 8.5 H Lymph # (Auto) 2.7 Gordon # (Auto) 1.0 H Eos # (Auto) 0.4 Baso # (Auto) 0.1 PT 13.2 H INR 1.2 APTT 32 Puncture Site pCO2 pO2 41 HCO3 ABG pH ABG Total CO2 ABG O2 Saturation ABG Base Excess ABG Hemoglobin ABG Carboxyhemoglobin POC ABG HHb (Measured) ABG Methemoglobin Ming Test ABG Potassium VBG pH 7.16 L* VBG pCO2 66 H* VBG HCO3 19.0 VBG Total CO2 25.5 VBG O2 Sat (Calc) 67.5 H VBG Base Excess -6.3 L VBG Potassium 5.7 H A-a O2 Difference Respiratory Index Hgb O2 Saturation Sodium 138.0 Chloride 105.0 Glucose 290 H Lactate 4.8 H* Vent Mode Mechanical Rate FiO2 100.0 Tidal Volume PEEP 7 Crit Value Called To Dr [email or web address] Crit Value Called By [email or web address] Crit Value Read Back Y Blood Gas Notified Time 2019 Potassium Carbon Dioxide Anion Gap BUN Creatinine Est GFR ( Amer) Est GFR (Non-Af Amer) POC Glucose (mg/dL) Random Glucose Hemoglobin A1c Calcium Phosphorus Magnesium Total Bilirubin AST ALT Alkaline Phosphatase Troponin I Total Protein Albumin Globulin Albumin/Globulin Ratio Triglycerides Cholesterol LDL Cholesterol Direct HDL Cholesterol Arterial Blood Potassium Venous Blood Potassium 5.7 H Urine Color Urine Clarity Urine pH Ur Specific [place] Urine Protein Urine Glucose (UA) Urine Ketones Urine Blood Urine Nitrate Urine Bilirubin Urine Urobilinogen Ur Leukocyte Esterase Urine WBC (Auto) Urine RBC (Auto) Urine Bacteria Blood Type Antibody Screen 07/10/17 07/10/17 07/10/17 20:21 20:21 20:21 WBC RBC Hgb Hct MCV MCH MCHC RDW Plt Count MPV Neut % (Auto) Lymph % (Auto) Gordon % (Auto) Eos % (Auto) Baso % (Auto) Neut # (Auto) Lymph # (Auto) Gordon # (Auto) Eos # (Auto) Baso # (Auto) PT INR APTT Puncture Site pCO2 pO2 HCO3 ABG pH ABG Total CO2 ABG O2 Saturation ABG Base Excess ABG Hemoglobin ABG Carboxyhemoglobin POC ABG HHb (Measured) ABG Methemoglobin Ming Test ABG Potassium VBG pH VBG pCO2 VBG HCO3 VBG Total CO2 VBG O2 Sat (Calc) VBG Base Excess VBG Potassium A-a O2 Difference Respiratory Index Hgb O2 Saturation Sodium 143 Chloride 103 Glucose Lactate Vent Mode Mechanical Rate FiO2 Tidal Volume PEEP Crit Value Called To Crit Value Called By Crit Value Read Back Blood Gas Notified Time Potassium 5.6 H Carbon Dioxide 22 Anion Gap 24 H BUN 27 H Creatinine 1.4 Est GFR ( Amer) 59 Est GFR (Non-Af Amer) 49 POC Glucose (mg/dL) Random Glucose 263 H Hemoglobin A1c 7.2 H Calcium 8.0 L Phosphorus Magnesium Total Bilirubin 0.3 AST 31 ALT 13 L Alkaline Phosphatase 77 Troponin I < 0.0120 Total Protein 6.7 Albumin 3.5 Globulin 3.2 Albumin/Globulin Ratio 1.1 Triglycerides 223 H Cholesterol 110 LDL Cholesterol Direct 55 HDL Cholesterol 16 L Arterial Blood Potassium Venous Blood Potassium Urine Color Urine Clarity Urine pH Ur Specific [place] Urine Protein Urine Glucose (UA) Urine Ketones Urine Blood Urine Nitrate Urine Bilirubin Urine Urobilinogen Ur Leukocyte Esterase Urine WBC (Auto) Urine RBC (Auto) Urine Bacteria Blood Type O POSITIVE Antibody Screen Negative 07/10/17 07/10/17 07/11/17 20:35 21:35 04:45 WBC RBC Hgb Hct MCV MCH MCHC RDW Plt Count MPV Neut % (Auto) Lymph % (Auto) Gordon % (Auto) Eos % (Auto) Baso % (Auto) Neut # (Auto) Lymph # (Auto) Gordon # (Auto) Eos # (Auto) Baso # (Auto) PT INR APTT Puncture Site Lr Rb pCO2 37 34 L pO2 329 H 180 H HCO3 20.0 L 24.3 ABG pH 7.32 L 7.44 ABG Total CO2 20.2 L 24.1 ABG O2 Saturation 98.9 H 98.5 H ABG Base Excess -6.4 L -0.8 ABG Hemoglobin 8.4 L ABG Carboxyhemoglobin 0.7 POC ABG HHb (Measured) 1.5 ABG Methemoglobin 0.5 Ming Test P Na ABG Potassium 5.1 VBG pH VBG pCO2 VBG HCO3 VBG Total CO2 VBG O2 Sat (Calc) VBG Base Excess VBG Potassium A-a O2 Difference 338.0 134.0 Respiratory Index 1.0 0.7 Hgb O2 Saturation 97.3 Sodium 140.0 Chloride 112.0 H Glucose 247 H Lactate 2.5 H Vent Mode A/c Prvc Mechanical Rate 22 FiO2 100.0 50.0 Tidal Volume 500 500 PEEP 7 7 Crit Value Called To Crit Value Called By Crit Value Read Back Blood Gas Notified Time Potassium Carbon Dioxide Anion Gap BUN Creatinine Est GFR ( Amer) Est GFR (Non-Af Amer) POC Glucose (mg/dL) Random Glucose Hemoglobin A1c Calcium Phosphorus Magnesium Total Bilirubin AST ALT Alkaline Phosphatase Troponin I Total Protein Albumin Globulin Albumin/Globulin Ratio Triglycerides Cholesterol LDL Cholesterol Direct HDL Cholesterol Arterial Blood Potassium 5.1 Venous Blood Potassium Urine Color Yellow Urine Clarity Clear Urine pH 6.0 Ur Specific [place] 1.038 H Urine Protein 2+ H Urine Glucose (UA) 3+ H Urine Ketones Negative Urine Blood Negative Urine Nitrate Negative Urine Bilirubin Negative Urine Urobilinogen Normal Ur Leukocyte Esterase Neg Urine WBC (Auto) 1 Urine RBC (Auto) 4 H Urine Bacteria Rare Blood Type Antibody Screen 07/11/17 07/11/17 07/11/17 04:59 04:59 06:13 WBC 6.6 RBC 3.45 L Hgb 8.2 L Hct 26.4 L MCV 76.5 L MCH 23.7 L MCHC 30.9 L RDW 21.2 H Plt Count 147 D MPV 8.5 Neut % (Auto) 70.3 Lymph % (Auto) 15.9 L Gordon % (Auto) 8.7 Eos % (Auto) 4.6 H Baso % (Auto) 0.5 Neut # (Auto) 4.6 Lymph # (Auto) 1.0 Gordon # (Auto) 0.6 Eos # (Auto) 0.3 Baso # (Auto) 0.0 PT INR APTT 135 H* D Puncture Site pCO2 pO2 HCO3 ABG pH ABG Total CO2 ABG O2 Saturation ABG Base Excess ABG Hemoglobin ABG Carboxyhemoglobin POC ABG HHb (Measured) ABG Methemoglobin Ming Test ABG Potassium VBG pH VBG pCO2 VBG HCO3 VBG Total CO2 VBG O2 Sat (Calc) VBG Base Excess VBG Potassium A-a O2 Difference Respiratory Index Hgb O2 Saturation Sodium 143 Chloride 112 H Glucose Lactate Vent Mode Mechanical Rate FiO2 Tidal Volume PEEP Crit Value Called To Crit Value Called By Crit Value Read Back Blood Gas Notified Time Potassium 4.8 Carbon Dioxide 23 Anion Gap 13 BUN 23 H Creatinine 1.1 Est GFR ( Amer) > 60 Est GFR (Non-Af Amer) > 60 POC Glucose (mg/dL) Random Glucose 107 Hemoglobin A1c Calcium 7.4 L Phosphorus 3.6 Magnesium 1.9 Total Bilirubin 0.2 AST 33 ALT 28 Alkaline Phosphatase 65 Troponin I Total Protein 5.6 L Albumin 2.8 L Globulin 2.8 Albumin/Globulin Ratio 1.0 Triglycerides Cholesterol LDL Cholesterol Direct HDL Cholesterol Arterial Blood Potassium Venous Blood Potassium Urine Color Urine Clarity Urine pH Ur Specific [place] Urine Protein Urine Glucose (UA) Urine Ketones Urine Blood Urine Nitrate Urine Bilirubin Urine Urobilinogen Ur Leukocyte Esterase Urine WBC (Auto) Urine RBC (Auto) Urine Bacteria Blood Type Antibody Screen 07/11/17 07/11/17 07/11/17 08:36 11:32 12:00 WBC RBC Hgb Hct MCV MCH MCHC RDW Plt Count MPV Neut % (Auto) Lymph % (Auto) Gordon % (Auto) Eos % (Auto) Baso % (Auto) Neut # (Auto) Lymph # (Auto) Gordon # (Auto) Eos # (Auto) Baso # (Auto) PT INR APTT 74 H D Puncture Site pCO2 pO2 HCO3 ABG pH ABG Total CO2 ABG O2 Saturation ABG Base Excess ABG Hemoglobin ABG Carboxyhemoglobin POC ABG HHb (Measured) ABG Methemoglobin Ming Test ABG Potassium VBG pH VBG pCO2 VBG HCO3 VBG Total CO2 VBG O2 Sat (Calc) VBG Base Excess VBG Potassium A-a O2 Difference Respiratory Index Hgb O2 Saturation Sodium Chloride Glucose Lactate Vent Mode Mechanical Rate FiO2 Tidal Volume PEEP Crit Value Called To Crit Value Called By Crit Value Read Back Blood Gas Notified Time Potassium Carbon Dioxide Anion Gap BUN Creatinine Est GFR ( Amer) Est GFR (Non-Af Amer) POC Glucose (mg/dL) 121 H 110 Random Glucose Hemoglobin A1c Calcium Phosphorus Magnesium Total Bilirubin AST ALT Alkaline Phosphatase Troponin I Total Protein Albumin Globulin Albumin/Globulin Ratio Triglycerides Cholesterol LDL Cholesterol Direct HDL Cholesterol Arterial Blood Potassium Venous Blood Potassium Urine Color Urine Clarity Urine pH Ur Specific [place] Urine Protein Urine Glucose (UA) Urine Ketones Urine Blood Urine Nitrate Urine Bilirubin Urine Urobilinogen Ur Leukocyte Esterase Urine WBC (Auto) Urine RBC (Auto) Urine Bacteria Blood Type Antibody Screen EKG/Cardiology Studies: Cardiology / EKG Studies 07/10/17 19:21 ELECTROCARDIOGRAM Stat Comment: Mode Of Transportation: Reason For Exam: stroke code 07/10/17 23:15 EKG [ELECTROCARDIOGRAM] Stat Comment: Mode Of Transportation: BED Reason For Exam: cp 07/12/17 23:15 ELECTROCARDIOGRAM DAILY Comment: Mode Of Transportation: PORTABLE Reason For Exam: f/u 07/13/17 23:15 ELECTROCARDIOGRAM DAILY Comment: Mode Of Transportation: PORTABLE Reason For Exam: f/u Fingerstick Blood Sugar Results: 220 Review of Systems - Review of Systems Systems not reviewed;Unavailable: Intubated Critical Care Progress Note - Ventilator Checklist Head of Bed 30 Degrees: Yes PUD Prophalyxis: Yes DVT Prophylaxis: Yes - Vent Settings MODE:: PRVC - Nutrition Nutrition: Nutrition Category Date Time Status NPO Diet [DIET] Diets 07/11/17 Breakfast Active
--- NOTE | 2017-07-11 12:45 | CP.PCM.CON ---
History of Present Illness - History of Present Illness History of Present Illness: Mr Nettles is an 81 year old male, with pmh of htn,dm, prior HI, who was eating dinner at around 6 pm with his son, when he suddenly collapsed, and fell face forward on the table. There were no seizures, no focal weakness noted at that time but he had a generalized seizure in the ambulance, with residual left sided weakness, along with left gaze preference. I was called for code stroke and was told that in addition, the patient had left sided hemiparesis. 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 Patient was intubated with fentanyl and sedated, and he woke up this morning, and was moving all extremities. PMH/PSH: as above. FH/SH: , has several children and lives with his son. All: nkda. on exam: intubated but arouseable, and follows commands such as close your eyes. No facial asymmetry that I can appreciate. Dolls eyes gag and blink reflex present. movign legs and arms against gravity. +3 dtr ul and ll bl. Toes downgoing no clonus. Past Patient History - Past Medical History & Family History Past Medical History?: Yes - Past Social History Smoking Status: Former Smoker - CARDIAC Hx Hypertension: Yes - NEUROLOGICAL Hx Seizures: Yes - ENDOCRINE/METABOLIC Hx Diabetes Mellitus Type 2: Yes - MUSCULOSKELETAL/RHEUMATOLOGICAL Hx Arthritis: Yes Hx Back Pain: Yes Hx Falls: Yes Hx Herniated Disk: Yes - GENITOURINARY/GYNECOLOGICAL Other/Comment: bph - PSYCHIATRIC Hx Substance Use: No - SURGICAL HISTORY Hx Coronary Artery Bypass Graft: Yes Other/Comment: ester in back - ANESTHESIA Hx Anesthesia: Yes Hx Anesthesia Reactions: No Hx Malignant Hyperthermia: No Has any member of the family had a problem w/ anesthesia?: No Meds Allergies/Adverse Reactions: Allergies Allergy/AdvReac Type Severity Reaction Status Date / Time No Known Allergies Allergy Verified 07/10/17 19:23 - Medications Medications: Current Medications Norepinephrine Bitartrate 4 mg (/ Sodium Chloride) 254 mls @ 15.24 mls/hr IV .[id number] PRN; Protocol; 4 MCG/MIN PRN Reason: TITRATE PER MD ORDER Heparin Sodium/Sodium Chloride (Heparin 93643 Units/250ml 1/2 Normal Saline) 25 ,000 units in 250 mls @ 17.301 mls/hr IV .[id number] PRN; Protocol; 18 UNITS/KG/HR PRN Reason: PROTOCOL Last Titration: 07/11/17 07:45 Dose: 15 units/kg/hr, 14.417 mls/hr Fentanyl Citrate 2,500 mcg/ (Sodium Chloride) 250 mls @ 19.22 mls/hr IV .[id number] LITTLE; 2 MCG/KG/HR PRN Reason: Protocol Last Admin: 07/11/17 08:16 Dose: 5 mcg/kg/hr, 48.05 mls/hr Levetiracetam 500 mg/ Sodium (Chloride) 105 mls @ 420 mls/hr IVPB Q12H LITTLE Pantoprazole Sodium (Protonix Inj) 40 mg IVP DAILY LITTLE Last Admin: 07/11/17 09:37 Dose: 40 mg Results - Vital Signs Recent Vital Signs: Last Vital Signs Temp 99.3 F 07/11/17 08:00 Pulse 69 07/11/17 10:00 Resp 21 07/11/17 10:00 BP 140/47 L 07/11/17 10:00 Pulse Ox 100 07/11/17 10:00 - Labs Result Diagrams: 07/11/17 04:59 07/11/17 04:59 Labs: Laboratory Results - last 24 hr 07/10/17 07/10/17 07/10/17 20:16 20:21 20:21 WBC 12.7 H RBC 4.17 L Hgb 10.0 L Hct 32.6 L MCV 78.3 L MCH 23.9 L MCHC 30.6 L RDW 21.5 H Plt Count 250 MPV 8.4 Neut % (Auto) 67.2 Lymph % (Auto) 21.1 Maury % (Auto) 7.6 Eos % (Auto) 3.4 Baso % (Auto) 0.7 Neut # (Auto) 8.5 H Lymph # (Auto) 2.7 Maury # (Auto) 1.0 H Eos # (Auto) 0.4 Baso # (Auto) 0.1 PT 13.2 H INR 1.2 APTT 32 Puncture Site pCO2 pO2 41 HCO3 ABG pH ABG Total CO2 ABG O2 Saturation ABG Base Excess ABG Hemoglobin ABG Carboxyhemoglobin POC ABG HHb (Measured) ABG Methemoglobin Ming Test ABG Potassium VBG pH 7.16 L* VBG pCO2 66 H* VBG HCO3 19.0 VBG Total CO2 25.5 VBG O2 Sat (Calc) 67.5 H VBG Base Excess -6.3 L VBG Potassium 5.7 H A-a O2 Difference Respiratory Index Hgb O2 Saturation Sodium 138.0 Chloride 105.0 Glucose 290 H Lactate 4.8 H* Vent Mode Mechanical Rate FiO2 100.0 Tidal Volume PEEP 7 Crit Value Called To Dr [email or web address] Crit Value Called By Ga.rt Crit Value Read Back Y Blood Gas Notified Time 2020 Potassium Carbon Dioxide Anion Gap BUN Creatinine Est GFR ( Amer) Est GFR (Non-Af Amer) POC Glucose (mg/dL) Random Glucose Hemoglobin A1c Calcium Phosphorus Magnesium Total Bilirubin AST ALT Alkaline Phosphatase Troponin I Total Protein Albumin Globulin Albumin/Globulin Ratio Triglycerides Cholesterol LDL Cholesterol Direct HDL Cholesterol Arterial Blood Potassium Venous Blood Potassium 5.7 H Urine Color Urine Clarity Urine pH Ur Specific [place] Urine Protein Urine Glucose (UA) Urine Ketones Urine Blood Urine Nitrate Urine Bilirubin Urine Urobilinogen Ur Leukocyte Esterase Urine WBC (Auto) Urine RBC (Auto) Urine Bacteria Blood Type Antibody Screen 07/10/17 07/10/17 07/10/17 20:21 20:21 20:21 WBC RBC Hgb Hct MCV MCH MCHC RDW Plt Count MPV Neut % (Auto) Lymph % (Auto) Maury % (Auto) Eos % (Auto) Baso % (Auto) Neut # (Auto) Lymph # (Auto) Maury # (Auto) Eos # (Auto) Baso # (Auto) PT INR APTT Puncture Site pCO2 pO2 HCO3 ABG pH ABG Total CO2 ABG O2 Saturation ABG Base Excess ABG Hemoglobin ABG Carboxyhemoglobin POC ABG HHb (Measured) ABG Methemoglobin Ming Test ABG Potassium VBG pH VBG pCO2 VBG HCO3 VBG Total CO2 VBG O2 Sat (Calc) VBG Base Excess VBG Potassium A-a O2 Difference Respiratory Index Hgb O2 Saturation Sodium 143 Chloride 103 Glucose Lactate Vent Mode Mechanical Rate FiO2 Tidal Volume PEEP Crit Value Called To Crit Value Called By Crit Value Read Back Blood Gas Notified Time Potassium 5.6 H Carbon Dioxide 22 Anion Gap 24 H BUN 27 H Creatinine 1.4 Est GFR ( Amer) 59 Est GFR (Non-Af Amer) 49 POC Glucose (mg/dL) Random Glucose 263 H Hemoglobin A1c 7.2 H Calcium 8.0 L Phosphorus Magnesium Total Bilirubin 0.3 AST 31 ALT 13 L Alkaline Phosphatase 77 Troponin I < 0.0120 Total Protein 6.7 Albumin 3.5 Globulin 3.2 Albumin/Globulin Ratio 1.1 Triglycerides 223 H Cholesterol 110 LDL Cholesterol Direct 55 HDL Cholesterol 16 L Arterial Blood Potassium Venous Blood Potassium Urine Color Urine Clarity Urine pH Ur Specific [place] Urine Protein Urine Glucose (UA) Urine Ketones Urine Blood Urine Nitrate Urine Bilirubin Urine Urobilinogen Ur Leukocyte Esterase Urine WBC (Auto) Urine RBC (Auto) Urine Bacteria Blood Type O POSITIVE Antibody Screen Negative 07/10/17 07/10/17 07/11/17 20:35 21:35 04:45 WBC RBC Hgb Hct MCV MCH MCHC RDW Plt Count MPV Neut % (Auto) Lymph % (Auto) Maury % (Auto) Eos % (Auto) Baso % (Auto) Neut # (Auto) Lymph # (Auto) Maury # (Auto) Eos # (Auto) Baso # (Auto) PT INR APTT Puncture Site Lr Rb pCO2 37 34 L pO2 329 H 180 H HCO3 20.0 L 24.3 ABG pH 7.32 L 7.44 ABG Total CO2 20.2 L 24.1 ABG O2 Saturation 98.9 H 98.5 H ABG Base Excess -6.4 L -0.8 ABG Hemoglobin 8.4 L ABG Carboxyhemoglobin 0.7 POC ABG HHb (Measured) 1.5 ABG Methemoglobin 0.5 Ming Test P Na ABG Potassium 5.1 VBG pH VBG pCO2 VBG HCO3 VBG Total CO2 VBG O2 Sat (Calc) VBG Base Excess VBG Potassium A-a O2 Difference 338.0 134.0 Respiratory Index 1.0 0.7 Hgb O2 Saturation 97.3 Sodium 140.0 Chloride 112.0 H Glucose 247 H Lactate 2.5 H Vent Mode A/c Prvc Mechanical Rate 22 FiO2 100.0 50.0 Tidal Volume 500 500 PEEP 7 7 Crit Value Called To Crit Value Called By Crit Value Read Back Blood Gas Notified Time Potassium Carbon Dioxide Anion Gap BUN Creatinine Est GFR ( Amer) Est GFR (Non-Af Amer) POC Glucose (mg/dL) Random Glucose Hemoglobin A1c Calcium Phosphorus Magnesium Total Bilirubin AST ALT Alkaline Phosphatase Troponin I Total Protein Albumin Globulin Albumin/Globulin Ratio Triglycerides Cholesterol LDL Cholesterol Direct HDL Cholesterol Arterial Blood Potassium 5.1 Venous Blood Potassium Urine Color Yellow Urine Clarity Clear Urine pH 6.0 Ur Specific [place] 1.038 H Urine Protein 2+ H Urine Glucose (UA) 3+ H Urine Ketones Negative Urine Blood Negative Urine Nitrate Negative Urine Bilirubin Negative Urine Urobilinogen Normal Ur Leukocyte Esterase Neg Urine WBC (Auto) 1 Urine RBC (Auto) 4 H Urine Bacteria Rare Blood Type Antibody Screen 07/11/17 07/11/17 07/11/17 04:59 04:59 06:13 WBC 6.6 RBC 3.45 L Hgb 8.2 L Hct 26.4 L MCV 76.5 L MCH 23.7 L MCHC 30.9 L RDW 21.2 H Plt Count 147 D MPV 8.5 Neut % (Auto) 70.3 Lymph % (Auto) 15.9 L Maury % (Auto) 8.7 Eos % (Auto) 4.6 H Baso % (Auto) 0.5 Neut # (Auto) 4.6 Lymph # (Auto) 1.0 Maury # (Auto) 0.6 Eos # (Auto) 0.3 Baso # (Auto) 0.0 PT INR APTT 135 H* D Puncture Site pCO2 pO2 HCO3 ABG pH ABG Total CO2 ABG O2 Saturation ABG Base Excess ABG Hemoglobin ABG Carboxyhemoglobin POC ABG HHb (Measured) ABG Methemoglobin Ming Test ABG Potassium VBG pH VBG pCO2 VBG HCO3 VBG Total CO2 VBG O2 Sat (Calc) VBG Base Excess VBG Potassium A-a O2 Difference Respiratory Index Hgb O2 Saturation Sodium 143 Chloride 112 H Glucose Lactate Vent Mode Mechanical Rate FiO2 Tidal Volume PEEP Crit Value Called To Crit Value Called By Crit Value Read Back Blood Gas Notified Time Potassium 4.8 Carbon Dioxide 23 Anion Gap 13 BUN 23 H Creatinine 1.1 Est GFR ( Amer) > 60 Est GFR (Non-Af Amer) > 60 POC Glucose (mg/dL) Random Glucose 107 Hemoglobin A1c Calcium 7.4 L Phosphorus 3.6 Magnesium 1.9 Total Bilirubin 0.2 AST 33 ALT 28 Alkaline Phosphatase 65 Troponin I Total Protein 5.6 L Albumin 2.8 L Globulin 2.8 Albumin/Globulin Ratio 1.0 Triglycerides Cholesterol LDL Cholesterol Direct HDL Cholesterol Arterial Blood Potassium Venous Blood Potassium Urine Color Urine Clarity Urine pH Ur Specific [place] Urine Protein Urine Glucose (UA) Urine Ketones Urine Blood Urine Nitrate Urine Bilirubin Urine Urobilinogen Ur Leukocyte Esterase Urine WBC (Auto) Urine RBC (Auto) Urine Bacteria Blood Type Antibody Screen 07/11/17 07/11/17 08:36 11:32 WBC RBC Hgb Hct MCV MCH MCHC RDW Plt Count MPV Neut % (Auto) Lymph % (Auto) Maury % (Auto) Eos % (Auto) Baso % (Auto) Neut # (Auto) Lymph # (Auto) Maury # (Auto) Eos # (Auto) Baso # (Auto) PT INR APTT 74 H D Puncture Site pCO2 pO2 HCO3 ABG pH ABG Total CO2 ABG O2 Saturation ABG Base Excess ABG Hemoglobin ABG Carboxyhemoglobin POC ABG HHb (Measured) ABG Methemoglobin Ming Test ABG Potassium VBG pH VBG pCO2 VBG HCO3 VBG Total CO2 VBG O2 Sat (Calc) VBG Base Excess VBG Potassium A-a O2 Difference Respiratory Index Hgb O2 Saturation Sodium Chloride Glucose Lactate Vent Mode Mechanical Rate FiO2 Tidal Volume PEEP Crit Value Called To Crit Value Called By Crit Value Read Back Blood Gas Notified Time Potassium Carbon Dioxide Anion Gap BUN Creatinine Est GFR ( Amer) Est GFR (Non-Af Amer) POC Glucose (mg/dL) 121 H Random Glucose Hemoglobin A1c Calcium Phosphorus Magnesium Total Bilirubin AST ALT Alkaline Phosphatase Troponin I Total Protein Albumin Globulin Albumin/Globulin Ratio Triglycerides Cholesterol LDL Cholesterol Direct HDL Cholesterol Arterial Blood Potassium Venous Blood Potassium Urine Color Urine Clarity Urine pH Ur Specific [place] Urine Protein Urine Glucose (UA) Urine Ketones Urine Blood Urine Nitrate Urine Bilirubin Urine Urobilinogen Ur Leukocyte Esterase Urine WBC (Auto) Urine RBC (Auto) Urine Bacteria Blood Type Antibody Screen - Imaging and Cardiology CT scan - head Status: Image reviewed by me, Report reviewed by me (ct head shows a cyst in the occipital region. ) Assessment & Plan - Assessment and Plan (Free Text) Assessment: 81 yr old male with most likely seizure at onset of event, with possibility of stroke, ischemic event. PLan: 1. Mri BRain needed 2. CTA not read as of yet, please obtain official reading. 3. aspirin 325 mg po daily 4. ECHO 5. IV fluids ns 100 ccs per hour 6. Keppra 1000 mg iv one time, and continue on 750 mg bid. 7. EEG in am Thank you Dr Boykin
[2017-07-11] MEDS: Heparin25000 units/250ml 1/2NS 25,000 UNITS/250 ML BAG IV PRN (13:21)
--- NOTE | 2017-07-11 13:30 | CT ---
PROCEDURE: CT HEAD WITHOUT CONTRAST. HISTORY: Repeat study COMPARISON: Comparison made with CTA brain dated CT scan brain 07/10/2017. TECHNIQUE: Axial computed tomography images were obtained through the head/brain without intravenous contrast. Radiation dose: Total exam DLP = 1133.24 mGy-cm. This CT exam was performed using one or more of the following dose reduction techniques: Automated exposure control, adjustment of the mA and/or kV according to patient size, and/or use of iterative reconstruction technique. FINDINGS: HEMORRHAGE: No acute parenchymal, subarachnoid or extra-axial hemorrhage. BRAIN: Mild the diffuse/ confluent chronic white matter ischemic changes seen extending peripherally into the deep and subcortical white matter both cerebral hemispheres. Scattered chronic bilateral basal nuclei lacunar type infarcts also present. Note that the possibility of a hyperacute infarct cannot be excluded based on this exam. . Moderate generalized volume loss unchanged. Prominent cisterna magna VENTRICLES: No obstructive hydrocephalus. CALVARIUM: Unremarkable. PARANASAL SINUSES: Moderate mucosal thickening ethmoid air complex. Minor mucosal thickening sphenoid sinus with tiny fluid level right chamber sphenoid sinus MASTOID AIR CELLS: Unremarkable as visualized. No inflammatory changes. OTHER FINDINGS: None. IMPRESSION: No acute intracranial hemorrhage. Mild chronic white matter ischemic changes with scattered bilateral basal nuclei a lacunar type infarcts. Moderate generalized volume loss.
--- NOTE | 2017-07-11 13:47 | CT ---
PROCEDURE: CT Chest with contrast (Pulmonary Angiogram) HISTORY: Cardiac arrest COMPARISON: Correlation made with chest x-ray obtained earlier same day TECHNIQUE: Axial computed tomography images were obtained of the chest in the pulmonary arterial phase of enhancement. Coronal and sagittal reformatted images were created and reviewed. Intravenous contrast dose: The 100 cc Visipaque 320 Radiation dose: Total exam DLP = 585.61 mGy-cm. This CT exam was performed using one or more of the following dose reduction techniques: Automated exposure control, adjustment of the mA and/or kV according to patient size, and/or use of iterative reconstruction technique. 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 FINDINGS: PULMONARY ARTERIES: The visualized portions of the pulmonary trunk, right and left main,, segmental and proximal subsegmental branches of the pulmonary arteries are well opacified with no definitive filling defects seen to suggest acute central pulmonary embolus. Pulmonary trunk measures approximately 3.4 cm. AORTA: No acute findings. No thoracic aortic aneurysm. Ascending thoracic aorta measures approximately 3.8 cm and descending thoracic aorta measures approximately 3.2 cm. Calcified atherosclerotic plaque seen along the thoracic aorta. The right brachiocephalic and left common carotid artery arise from a common trunk. LUNGS: In situ ETT, the tip of which lies on approximately 3.35 cm above josefina. Mild bibasilar atelectasis and or scarring changes seen both posterior sulci left greater than right, as well as left lingular region. Mild scarring seen also seen in the left upper lobe. . Questionable trace bilateral effusions mid. No large parenchymal masses. There is a tiny approximately 3 mm subpleural nodule seen in the posterolateral up aspect right upper lobe best seen on axial series 4, image number 30 PLEURAL SPACES: Unremarkable. No effusion or pneumothorax. HEART: Heart is mildly enlarged. No significant pericardial effusion LYMPH NODES: Few small nonspecific mediastinal and hilar lymph nodes. There is a small hiatal hernia with slight wall thickening of the distal esophagus that is likely due to protrusion of gastric mucosa. Esophagitis not excluded BONES, CHEST WALL: Multilevel degenerative spondylosis of the thoracic spine. Median sternotomy again noted. OTHER FINDINGS: Apparent postoperative changes of the stomach. Clinical correlation with surgical history recommended. IMPRESSION: No evidence of acute central pulmonary embolus. Bibasilar atelectasis left greater than right. Mild atelectasis or scarring left lingular region and left upper lobe. Questionable trace effusions Tiny subpleural nodule right upper lobe as above
[2017-07-11] MEDS ORDERED: DiphenhydrAMINE 50 mg/ml Inj IVP STA (13:54)
--- NOTE | 2017-07-11 14:02 | CT ---
PROCEDURE: CT Angiography of the neck and brain dated 07/10/2017 HISTORY: Code stroke. COMPARISON: Correlation made with concurrent CT scan brain TECHNIQUE: Contiguous helical/transaxial images of the neck were obtained from the level of the skull-base to the superior mediastinum in the arteriographic phase of enhancement. Coronal and sagittal reformats or also generated. IV contrast dose: 100 cc Visipaque 320 the Radiation Dose - DLP: 677.83 mGy-cm This CT exam was performed using one or more of the following dose reduction techniques: Automated exposure control, adjustment of the mA and/or kV according to patient size, and/or use of iterative reconstruction technique. . FINDINGS: The aortic arch exhibits calcified atherosclerotic plaque. There is also calcified plaque seen at the origin of the left subclavian artery. Right brachiocephalic and left common carotid artery arise from a common trunk. There is calcification also seen at the origin of the right subclavian artery. Minor calcified plaque changes seen along mid aspect of the right and left common carotid arteries. There is large calcified plaque seen at at the at distal common carotid artery extending into the bifurcation and proximal left internal carotid artery. . Estimated narrowing at the level of the carotid bifurcation and proximal left internal carotid artery approximately 65-70 %. The distal internal carotid arteries including the petrous segments widely patent. There are partially calcified atherosclerotic plaque changes both cavernous carotid arteries (approximately 50 % diameter stenosis on the right and 60 % on the left). A calcified plaque extends into both the supraclinoid carotid arteries. . The A1 and M1 segments are patent. The vertebral arteries are markedly asymmetric left-sided much larger in caliber more dominant than the right. Basilar artery is patent. The proximal posterior cerebral arteries are patent. The distal branches of the anterior middle and posterior cerebral arteries are symmetric. No evidence of large aneurysm nor vascular malformation. IMPRESSION: Moderate -significant stenosis left carotid bifurcation and left internal carotid artery. There are stenotic changes also seen involving both cavernous carotid arteries right greater than left as detailed above. No evidence of occlusion of the extracranial or intracranial arterial circulation. No evidence of large aneurysm nor vascular malformation. See above discussion for additional details.
--- NOTE | 2017-07-11 21:10 | CP.PCM.CON ---
History of Present Illness - History of Present Illness History of Present Illness: Reason For Consultation: Bradycardia ?Cardiac arrest Patient admitted last night for confusion, decreased responsiveness and agonal breathing after eating. Pt intubated in the field. Had seizure en route to ED. While in ED had cynthia then brief arrest. Required 1 epi /cpr. overnight patient was started on fentanyl drip for restlessness and moving all extremities Started on heparin drip Review Of Systems Review Of Systems: ROS cannot be obtained secondary to pt's inabilty to answer questions. Physical Exam - Physical Exam Appears: Non-toxic, Other (intubated) Moving all extremities Skin: Normal Color, Warm, Dry Head: Atraumatic, Normacephalic Eye(s): bilateral: Normal Inspection Oral Mucosa: Moist Neck: Supple Chest: Symmetrical, No Deformity, No Tenderness Cardiovascular: Rhythm Regular, No Murmur Respiratory: Normal Breath Sounds, No Rales, No Rhonchi, No Wheezing Extremity: Capillary Refill (less than 2 seconds ) Past Patient History - Past Medical History & Family History Past Medical History?: Yes - Past Social History Smoking Status: Former Smoker - CARDIAC Hx Hypertension: Yes - NEUROLOGICAL Hx Seizures: Yes - ENDOCRINE/METABOLIC Hx Diabetes Mellitus Type 2: Yes - MUSCULOSKELETAL/RHEUMATOLOGICAL Hx Arthritis: Yes Hx Back Pain: Yes Hx Falls: Yes Hx Herniated Disk: Yes - GENITOURINARY/GYNECOLOGICAL Other/Comment: bph - PSYCHIATRIC Hx Substance Use: No - SURGICAL HISTORY Hx Coronary Artery Bypass Graft: Yes Other/Comment: ester in back - ANESTHESIA Hx Anesthesia: Yes Hx Anesthesia Reactions: No Hx Malignant Hyperthermia: No Has any member of the family had a problem w/ anesthesia?: No Meds Allergies/Adverse Reactions: Allergies Allergy/AdvReac Type Severity Reaction Status Date / Time No Known Allergies Allergy Verified 07/10/17 19:23 - Medications Medications: Current Medications Norepinephrine Bitartrate 4 mg (/ Sodium Chloride) 254 mls @ 15.24 mls/hr IV .[id number] PRN; Protocol; 4 MCG/MIN PRN Reason: TITRATE PER MD ORDER Heparin Sodium/Sodium Chloride (Heparin 14446 Units/250ml 1/2 Normal Saline) 25 ,000 units in 250 mls @ 17.301 mls/hr IV .[id number] PRN; Protocol; 18 UNITS/KG/HR PRN Reason: PROTOCOL Last Admin: 07/11/17 13:21 Dose: 15 units/kg/hr, 14.417 mls/hr Fentanyl Citrate 2,500 mcg/ (Sodium Chloride) 250 mls @ 19.22 mls/hr IV .Q13H1M LITTLE; 2 MCG/KG/HR PRN Reason: Protocol Last Admin: 07/11/17 19:25 Dose: Not Given Levetiracetam 500 mg/ Sodium (Chloride) 105 mls @ 420 mls/hr IVPB Q12H LITTLE Piperacillin Sod/Tazobactam (Sod 3.375 gm/ Sodium Chloride) 100 mls @ 200 mls/ hr IVPB Q6H LITTLE PRN Reason: Protocol Pantoprazole Sodium (Protonix Inj) 40 mg IVP DAILY LITTLE Last Admin: 07/11/17 09:37 Dose: 40 mg Results - Vital Signs Recent Vital Signs: Last Vital Signs Temp 100.2 F H 07/11/17 16:00 Pulse 71 07/11/17 18:00 Resp 22 07/11/17 18:00 BP 124/48 L 07/11/17 17:00 Pulse Ox 100 07/11/17 18:00 - Labs Result Diagrams: 07/11/17 04:59 07/11/17 04:59 Labs: Laboratory Results - last 24 hr 07/10/17 07/10/17 07/11/17 20:21 21:35 04:45 WBC RBC Hgb Hct MCV MCH MCHC RDW Plt Count MPV Neut % (Auto) Lymph % (Auto) [place] % (Auto) Eos % (Auto) Baso % (Auto) Neut # (Auto) Lymph # (Auto) [place] # (Auto) Eos # (Auto) Baso # (Auto) APTT Puncture Site Lr Rb pCO2 37 34 L pO2 329 H 180 H HCO3 20.0 L 24.3 ABG pH 7.32 L 7.44 ABG Total CO2 20.2 L 24.1 ABG O2 Saturation 98.9 H 98.5 H ABG Base Excess -6.4 L -0.8 ABG Hemoglobin 8.4 L ABG Carboxyhemoglobin 0.7 POC ABG HHb (Measured) 1.5 ABG Methemoglobin 0.5 Ming Test P Na ABG Potassium 5.1 A-a O2 Difference 338.0 134.0 Respiratory Index 1.0 0.7 Hgb O2 Saturation 97.3 Sodium 140.0 Chloride 112.0 H Glucose 247 H Lactate 2.5 H Vent Mode A/c Prvc Mechanical Rate 22 FiO2 100.0 50.0 Tidal Volume 500 500 PEEP 7 7 Potassium Carbon Dioxide Anion Gap BUN Creatinine Est GFR ( Amer) Est GFR (Non-Af Amer) POC Glucose (mg/dL) Random Glucose Hemoglobin A1c 7.2 H Calcium Phosphorus Magnesium Total Bilirubin AST ALT Alkaline Phosphatase Troponin I Total Protein Albumin Globulin Albumin/Globulin Ratio Arterial Blood Potassium 5.1 07/11/17 07/11/17 07/11/17 04:59 04:59 06:13 WBC 6.6 RBC 3.45 L Hgb 8.2 L Hct 26.4 L MCV 76.5 L MCH 23.7 L MCHC 30.9 L RDW 21.2 H Plt Count 147 D MPV 8.5 Neut % (Auto) 70.3 Lymph % (Auto) 15.9 L [place] % (Auto) 8.7 Eos % (Auto) 4.6 H Baso % (Auto) 0.5 Neut # (Auto) 4.6 Lymph # (Auto) 1.0 [place] # (Auto) 0.6 Eos # (Auto) 0.3 Baso # (Auto) 0.0 APTT 135 H* D Puncture Site pCO2 pO2 HCO3 ABG pH ABG Total CO2 ABG O2 Saturation ABG Base Excess ABG Hemoglobin ABG Carboxyhemoglobin POC ABG HHb (Measured) ABG Methemoglobin Ming Test ABG Potassium A-a O2 Difference Respiratory Index Hgb O2 Saturation Sodium 143 Chloride 112 H Glucose Lactate Vent Mode Mechanical Rate FiO2 Tidal Volume PEEP Potassium 4.8 Carbon Dioxide 23 Anion Gap 13 BUN 23 H Creatinine 1.1 Est GFR ( Amer) > 60 Est GFR (Non-Af Amer) > 60 POC Glucose (mg/dL) Random Glucose 107 Hemoglobin A1c Calcium 7.4 L Phosphorus 3.6 Magnesium 1.9 Total Bilirubin 0.2 AST 33 ALT 28 Alkaline Phosphatase 65 Troponin I Total Protein 5.6 L Albumin 2.8 L Globulin 2.8 Albumin/Globulin Ratio 1.0 Arterial Blood Potassium 07/11/17 07/11/17 07/11/17 08:36 11:32 11:32 WBC RBC Hgb Hct MCV MCH MCHC RDW Plt Count MPV Neut % (Auto) Lymph % (Auto) [place] % (Auto) Eos % (Auto) Baso % (Auto) Neut # (Auto) Lymph # (Auto) [place] # (Auto) Eos # (Auto) Baso # (Auto) APTT 74 H D Puncture Site pCO2 pO2 HCO3 ABG pH ABG Total CO2 ABG O2 Saturation ABG Base Excess ABG Hemoglobin ABG Carboxyhemoglobin POC ABG HHb (Measured) ABG Methemoglobin Ming Test ABG Potassium A-a O2 Difference Respiratory Index Hgb O2 Saturation Sodium Chloride Glucose Lactate Vent Mode Mechanical Rate FiO2 Tidal Volume PEEP Potassium Carbon Dioxide Anion Gap BUN Creatinine Est GFR ( Amer) Est GFR (Non-Af Amer) POC Glucose (mg/dL) 121 H Random Glucose Hemoglobin A1c Calcium Phosphorus Magnesium Total Bilirubin AST ALT Alkaline Phosphatase Troponin I 0.0570 Total Protein Albumin Globulin Albumin/Globulin Ratio Arterial Blood Potassium 07/11/17 07/11/17 07/11/17 12:00 16:16 17:27 WBC RBC Hgb Hct MCV MCH MCHC RDW Plt Count MPV Neut % (Auto) Lymph % (Auto) [place] % (Auto) Eos % (Auto) Baso % (Auto) Neut # (Auto) Lymph # (Auto) [place] # (Auto) Eos # (Auto) Baso # (Auto) APTT Puncture Site pCO2 pO2 HCO3 ABG pH ABG Total CO2 ABG O2 Saturation ABG Base Excess ABG Hemoglobin ABG Carboxyhemoglobin POC ABG HHb (Measured) ABG Methemoglobin Ming Test ABG Potassium A-a O2 Difference Respiratory Index Hgb O2 Saturation Sodium Chloride Glucose Lactate Vent Mode Mechanical Rate FiO2 Tidal Volume PEEP Potassium Carbon Dioxide Anion Gap BUN Creatinine Est GFR ( Amer) Est GFR (Non-Af Amer) POC Glucose (mg/dL) 110 130 H Random Glucose Hemoglobin A1c Calcium Phosphorus Magnesium Total Bilirubin AST ALT Alkaline Phosphatase Troponin I 0.0420 Total Protein Albumin Globulin Albumin/Globulin Ratio Arterial Blood Potassium 07/11/17 17:27 WBC RBC Hgb Hct MCV MCH MCHC RDW Plt Count MPV Neut % (Auto) Lymph % (Auto) [place] % (Auto) Eos % (Auto) Baso % (Auto) Neut # (Auto) Lymph # (Auto) [place] # (Auto) Eos # (Auto) Baso # (Auto) APTT 83 H D Puncture Site pCO2 pO2 HCO3 ABG pH ABG Total CO2 ABG O2 Saturation ABG Base Excess ABG Hemoglobin ABG Carboxyhemoglobin POC ABG HHb (Measured) ABG Methemoglobin Ming Test ABG Potassium A-a O2 Difference Respiratory Index Hgb O2 Saturation Sodium Chloride Glucose Lactate Vent Mode Mechanical Rate FiO2 Tidal Volume PEEP Potassium Carbon Dioxide Anion Gap BUN Creatinine Est GFR ( Amer) Est GFR (Non-Af Amer) POC Glucose (mg/dL) Random Glucose Hemoglobin A1c Calcium Phosphorus Magnesium Total Bilirubin AST ALT Alkaline Phosphatase Troponin I Total Protein Albumin Globulin Albumin/Globulin Ratio Arterial Blood Potassium Assessment & Plan - Assessment and Plan (Free Text) Assessment: 81 Male with Hx of CABG, HTN brought to [facility] ER for bradycardia arrest?, seizures, acedemia Trops negative. Not a RI CTA negative for PE Primary event unclear Continue ASA and statins due to hx of CAD and CABG Check ECHO If no other etiology found may likely need Cardiac cath and EP evaluation EP consult with Dr. Morgan
[2017-07-11] MEDS ORDERED: Acetaminophen 650mg/20.3ml solution UD NG PRN (21:44)
[2017-07-11] MEDS: Piperacill/Tazo 3.375gm in Dex 3.375 GM/50 ML BAG IVPB SCH (21:46)
[2017-07-11] MEDS: levETIRAcetam 500 MG in Sodium Chloride 0.9% 100 ML IVPB SCH (22:13)
[2017-07-11] MEDS: Acetaminophen 650mg/20.3ml solution UD NG PRN (22:36)
[2017-07-12] MEDS: Piperacill/Tazo 3.375gm in Dex 3.375 GM/50 ML BAG IVPB SCH ×4 (03:29→22:06)
[2017-07-12 04:47] LABS: ARTERIAL BLOOD GAS HCO3 24.4 mmol/L (21-28); ARTERIAL BLOOD GAS HEMOGLOBIN 8.5 g/dL (11.7-17.4); ARTERIAL BLOOD GAS O2 SAT 98.7 % (95-98); ARTERIAL BLOOD GAS PCO2 31 mm/Hg (35-45); ARTERIAL BLOOD GAS PH 7.47 (7.35-7.45); ARTERIAL BLOOD GAS PO2 150 mm/Hg (80-100); ARTERIAL BLOOD GAS TCO2 23.6 mmol/L (22-28)
--- NOTE | 2017-07-12 05:07 | CP.PCM.PN ---
Subjective - Date & Time of Evaluation Date of Evaluation: 07/12/17 Time of Evaluation: 05:02 - Subjective Subjective: Mr. Nettles was seen and examined at the bedside in ICU. He remains on mechanical ventilator on a PRVC mode. He opens his eyes spontaneously, follows simple commands, and on a fentanyl drip for sedation. He has episode of restlessness and with bilateral hand mitten. CTA of the head showed moderate to significant stenosis left carotid bifurcation and left ICA. There are stenotic changes also seen involving both cavernous carotid arteries right greater than the left. There is no evidence of occlusion of the extracranial or intracranial arterial circulation. There is no evidence of large aneurysm nor vascular malformation. repeat CT scan of the head done 07/11/2017 showed no acute intracranial hemorrhage. Mild chronic white matter ischemic changes with scattered bilateral basal nuclei a lacunar type infarcts. Moderate generalized volume loss. There was no untoward events overnight. Objective - Vital Signs/Intake and Output Vital Signs (last 24 hours): Temp Pulse Resp BP Pulse Ox 100.1 F H 71 22 124/48 L 100 07/12/17 00:00 07/11/17 18:00 07/11/17 18:00 07/11/17 17:00 07/11/17 18:00 Intake and Output: 07/11/17 07/12/17 18:59 06:59 Intake Total 1587.6 602.4 Output Total 690 50 Balance 897.6 552.4 - Medications Medications: Current Medications Acetaminophen (Tylenol 650mg/20.3ml Solution Ud) 650 mg NG Q4H PRN PRN Reason: for temp 101 and above Last Admin: 07/11/17 22:36 Dose: 650 mg Aspirin (Aspirin Supp) 300 mg NM DAILY LITTLE Norepinephrine Bitartrate 4 mg (/ Sodium Chloride) 254 mls @ 15.24 mls/hr IV .[id number] PRN; Protocol; 4 MCG/MIN PRN Reason: TITRATE PER MD ORDER Heparin Sodium/Sodium Chloride (Heparin 55196 Units/250ml 1/2 Normal Saline) 25 ,000 units in 250 mls @ 17.301 mls/hr IV .[id number] PRN; Protocol; 18 UNITS/KG/HR PRN Reason: PROTOCOL Last Admin: 07/11/17 13:21 Dose: 15 units/kg/hr, 14.417 mls/hr Fentanyl Citrate 2,500 mcg/ (Sodium Chloride) 250 mls @ 19.22 mls/hr IV .Q13H1M LITTLE; 2 MCG/KG/HR PRN Reason: Protocol Last Admin: 07/12/17 01:25 Dose: 2 mcg/kg/hr, 19.22 mls/hr Levetiracetam 500 mg/ Sodium (Chloride) 105 mls @ 420 mls/hr IVPB Q12H LITTLE Last Admin: 07/11/17 22:13 Dose: 420 mls/hr Piperacillin Sod/Tazobactam Sod (Zosyn 3.375 Gm Iv Premix) 3.375 gm in 50 mls @ 100 mls/hr IVPB Q6H LITTLE PRN Reason: Protocol Last Admin: 07/12/17 03:29 Dose: 100 mls/hr Pantoprazole Sodium (Protonix Inj) 40 mg IVP DAILY LITTLE Last Admin: 07/11/17 09:37 Dose: 40 mg - Labs Labs: 07/11/17 04:59 07/11/17 04:59 PT 13.2 SECONDS (9.7-12.2) H 07/10/17 20:21 INR 1.2 07/10/17 20:21 APTT 83 SECONDS (21-34) H D 07/11/17 17:27 - Constitutional Appears: No Acute Distress - Head Exam Head Exam: NORMAL INSPECTION - Eye Exam Pupil Exam: Miosis, PERRL - Neurological Exam Neurological Exam: Alert, Awake Neuro motor strength exam: Left Upper Extremity: 4, Right Upper Extremity: 4, Left Lower Extremity: 4, Right Lower Extremity: 4 Additional comments: He is awake, able to follow simple commands such as field accommodation, opening his mouth, raising all bilateral upper and lower extremities. Sensation is intact. Assessment and Plan (1) Seizure Assessment & Plan: Case discussed with Dr. Cortes, continue all current medical regimen. Follow up echocardiogram. MRI not possible at this time due to patient condition, recommend carotid doppler to evaluateleft ICA and carotid bifurcation. If it remains with significant stenosis, recommend neurointerventionalist consult. Status: Acute
[2017-07-12 06:15] LABS: INR 1.4; PROTHROMBIN TIME 15.3 SECONDS (9.7-12.2)
[2017-07-12] MEDS: Acetaminophen 650mg/20.3ml solution UD NG PRN (06:21)
[2017-07-12 06:41] LABS: BASO # 0.1 K/uL (0.0-0.2); BASO % 0.9 % (0.0-2.0); EOS # 0.3 K/uL (0.0-0.7); EOS % 3.9 % (0.0-4.0); HEMOGLOBIN 8.2 g/dL (12.0-18.0); LYMPH # 1.3 K/uL (1.0-4.3); LYMPH % 18.1 % (20.0-40.0); MEAN CELL VOLUME 76.3 fL (80.0-94.0); MEAN CORPUSCULAR HEMOGLOBIN 24.2 pg (27.0-31.0); MEAN CORPUSCULAR HGB CONC 31.7 g/dL (33.0-37.0); MEAN PLATELET VOLUME 9.6 fL (7.2-11.7); MONO # 0.6 K/uL (0.0-0.8); MONO % 8.3 % (0.0-10.0); NEUT # 4.8 K/uL (1.8-7.0); NEUT % 68.8 % (50.0-75.0); NRBC % 0.1 % (0.0-2.0); RBC 3.4 Mil/uL (4.40-5.90); RED CELL DISTRIBUTION WIDTH 21.3 % (11.5-14.5); WHITE BLOOD COUNT 6.9 K/uL (4.8-10.8)
[2017-07-12 06:52] LABS: ALB/GLOB RATIO 0.9 (1.0-2.1); ALBUMIN 2.8 g/dL (3.5-5.0); ALT/SGPT 19 U/L (21-72); AST/SGOT 32 U/L (17-59); BLOOD UREA NITROGEN 14 mg/dL (9-20); CALCIUM 8.3 mg/dl (8.6-10.4); GFR AFRICAN-AMERICAN > 60; GFR NON-AFRICAN AMERICAN > 60
[2017-07-12] MEDS: Heparin25000 units/250ml 1/2NS 25,000 UNITS/250 ML BAG IV PRN (08:32)
--- NOTE | 2017-07-12 08:33 | RAD ---
HISTORY: vented COMPARISON: 07/11/2017 FINDINGS: LUNGS: No active pulmonary disease. PLEURA: No significant pleural effusion identified, no pneumothorax apparent. CARDIOVASCULAR: Normal heart size. Sternotomy wires. Status post CABG. ETT unchanged in position. OSSEOUS STRUCTURES: No significant abnormalities. VISUALIZED UPPER ABDOMEN: Normal. OTHER FINDINGS: None. IMPRESSION: No acute infiltrate.
[2017-07-12] MEDS: levETIRAcetam 500 MG in Sodium Chloride 0.9% 100 ML IVPB SCH ×2 (09:13→21:22)
--- NOTE | 2017-07-12 09:18 | HP ---
HISTORY OF PRESENT ILLNESS: An 81-year-old male, admitted to the hospital with chief complain of cardiac arrest. The patient is having dinner, and he fell asleep , but no aspiration. The patient has multiple episodes of similar symptoms after eating. The patient admits heavy snoring. The patient's family endorses hearing snoring. The patient had extensive heart history bypass surgery. The patient is a heavy smoker. The patient is allergic to . PHYSICAL EXAMINATION: GENERAL: The patient is awake, alert, and oriented. VITAL SIGNS: Temperature 98 and pulse 90. HEENT: Within normal limits. NECK: Supple. CHEST: Symmetrical. HEART: Regular. ABDOMEN: Soft. EXTREMITIES: No edema. ASSESSMENT: The patient suffers from cardiac arrest, . At this point, we will get cardiac evaluation . Condition is stable. Kartik Rea MD
[2017-07-12] MEDS ORDERED: Acetaminophen 650mg/20.3ml solution UD NG PRN (09:46)
[2017-07-12] MEDS ORDERED: Magnesium Sulfate 1 gm in D5W 1 GM/100 ML BAG IVPB ONE (09:59)
[2017-07-12] MEDS ORDERED: Propofol 10 mg/ml 1,000 MG/100 ML VIAL IV PRN (12:01)
[2017-07-12] MEDS ORDERED: Propofol 10 mg/ml Inj (20 ML) IV ONE (12:10)
--- NOTE | 2017-07-12 12:12 | CP.CCUPN ---
"<Tigist Childress - Last Filed: 07/12/17 14:32> CCU Subjective - Physician Review Events Since Last Encounter (Free Text): Patient agitation in AM during ABG requiring Propofol push and IV drip. Subjective (Free Text): Patient seen and examined at bedside. No overnight events reported. ABG ordered in AM but couldn't be taken due to patient's restlesness. Patient started on propofol drip. Patient is responsive to stimuli and is obeying commands. Showing signs of wanting to extubate himself. CCU Objective - Vital Signs / Intake & Output Vital Signs (Last 4 hours): Vital Signs Pulse Resp BP Pulse Ox 07/12/17 08:12 81 22 136/54 L 99 Intake and Output (Last 8hrs): Intake & Output 07/11/17 07/12/17 07/12/17 22:59 06:59 14:59 Intake Total 459.6 778.8 80 Output Total 460 480 Balance -0.4 298.8 80 Weight 202 lb Intake: IV 0 400 80 Intake, IV Amount 399.6 318.8 Left antecubital main 115.2 115.2 port Right antecubital Y port 150 50 Right antecubital main 134.4 57.6 port left forearm 96.0 Other 60 60 Output: Urine 460 480 Urethral (Garza) 460 480 - Physical Exam Head: Positive for: Atraumatic, Normocephalic Pupils: Positive for: PERRL Mouth: Positive for: Moist Mucous Membranes Neck: Positive for: Trachea Midline Respiratory/Chest: Positive for: Clear to Auscultation Cardiovascular: Positive for: Irregular Rhythm Abdomen: Positive for: Normal Bowel Sounds Upper Extremity: Positive for: Normal Inspection Lower Extremity: Positive for: Normal Inspection Skin: Positive for: Warm Psychiatric: Positive for: Alert, Agitated - Medications Active Medications: Active Medications Generic Name Dose Route Start Last Admin Trade Name Freq PRN Reason Stop Dose Admin Acetaminophen 650 mg 07/12/17 09:46 Tylenol 650mg/20.3ml Solution Ud NG Q4H PRN Temp 100.4 or Greater. Aspirin 325 mg 07/12/17 10:00 07/12/17 10:32 Aspirin PO 325 mg DAILY LITTLE Administration Heparin Sodium (Porcine) 5,000 units 07/12/17 14:00 Heparin SC Q8 LITTLE Norepinephrine Bitartrate 4 mg 254 mls @ 15.24 mls/hr 07/10/17 21:17 / Sodium Chloride IV .[id number] PRN TITRATE PER MD ORDER Protocol 4 MCG/MIN Fentanyl Citrate 2,500 mcg/ 250 mls @ 19.22 mls/hr 07/10/17 23:15 07/12/17 08 :15 Sodium Chloride IV 1 mcg/kg/hr .[id number] LITTLE 9.61 mls/hr Protocol Titration 2 MCG/KG/HR Levetiracetam 500 mg/ Sodium 105 mls @ 420 mls/hr 07/11/17 22:00 07/12/17 09: 13 Chloride IVPB 420 mls/hr Q12H LITTLE Administration Piperacillin Sod/Tazobactam Sod 3.375 gm in 50 mls @ 100 mls/hr 07/11/17 22: 00 07/12/17 09:13 Zosyn 3.375 Gm Iv Premix IVPB 100 mls/hr Q6H LITTLE Administration Protocol Propofol 1,000 mg in 100 mls @ 2.749 mls/hr 07/12/17 12:01 Diprivan IV .Q24H PRN TITRATE PER MD ORDER Protocol 5 MCG/KG/MIN Pantoprazole Sodium 40 mg 07/11/17 00:00 07/12/17 09:13 Protonix Inj IVP 40 mg DAILY LITTLE Administration Propofol 200 mg 07/12/17 12:10 Diprivan IV 07/12/17 12:11 ONCE ONE - Patient Studies Lab Studies: Microbiology Studies 07/10/17 Unknown MRSA Culture (Admit) - Final Naris MRSA NOT DETECTED 07/10/17 20:30 Blood Culture - Preliminary Blood-Venous NO GROWTH AFTER 24 HOURS 07/10/17 20:00 Blood Culture - Preliminary Blood-Venous NO GROWTH AFTER 24 HOURS Lab Studies 07/12/17 07/12/17 07/12/17 Range/Units 11:24 05:59 05:59 WBC (4.8-10.8) K/uL RBC (4.40-5.90) Mil/uL Hgb (12.0-18.0) g/dL Hct (35.0-51.0) % MCV (80.0-94.0) fL MCH (27.0-31.0) pg MCHC (33.0-37.0) g/dL RDW (11.5-14.5) % Plt Count (130-400) K/uL MPV (7.2-11.7) fL Neut % (Auto) (50.0-75.0) % Lymph % (Auto) (20.0-40.0) % Mcclain % (Auto) (0.0-10.0) % Eos % (Auto) (0.0-4.0) % Baso % (Auto) (0.0-2.0) % Neut # (Auto) (1.8-7.0) K/uL Lymph # (Auto) (1.0-4.3) K/uL Mcclain # (Auto) (0.0-0.8) K/uL Eos # (Auto) (0.0-0.7) K/uL Baso # (Auto) (0.0-0.2) K/uL PT 15.3 H (9.7-12.2) SECONDS INR 1.4 APTT 75 H D (21-34) SECONDS Puncture Site pCO2 (35-45) mm/Hg pO2 (80-100) mm/Hg HCO3 (21-28) mmol/L ABG pH (7.35-7.45) ABG Total CO2 (22-28) mmol/L ABG O2 Saturation (95-98) % ABG Base Excess (-2.0-3.0) mmol/L ABG Hemoglobin (11.7-17.4) g/dL ABG Carboxyhemoglobin (0.5-1.5) % POC ABG HHb (Measured) (0.0-5.0) % ABG Methemoglobin (0.0-3.0) % Ming Test A-a O2 Difference mm/Hg Respiratory Index Hgb O2 Saturation (95.0-98.0) % Vent Mode Mechanical Rate FiO2 % Tidal Volume PEEP Sodium 141 (132-148) mmol/L Potassium 3.9 (3.6-5.2) mmol/L Chloride 110 H (98-107) mmol/L Carbon Dioxide 23 (22-30) mmol/L Anion Gap 12 (10-20) BUN 14 (9-20) mg/dL Creatinine 1.0 (0.8-1.5) mg/dL Est GFR ( Amer) > 60 Est GFR (Non-Af Amer) > 60 POC Glucose (mg/dL) 159 H (65-110) mg/dL Random Glucose 128 H (75-110) mg/dL Calcium 8.3 L (8.6-10.4) mg/dl Phosphorus 3.0 (2.5-4.5) mg/dL Magnesium 1.7 (1.6-2.3) mg/dL Total Bilirubin 0.5 (0.2-1.3) mg/dL AST 32 (17-59) U/L ALT 19 L D (21-72) U/L Alkaline Phosphatase 59 (38-126) U/L Troponin I (0.00-0.120) ng/mL Total Protein 5.8 L (6.3-8.3) g/dL Albumin 2.8 L (3.5-5.0) g/dL Globulin 3.0 (2.2-3.9) gm/dL Albumin/Globulin Ratio 0.9 L (1.0-2.1) 07/12/17 07/12/17 07/12/17 Range/Units 05:59 05:39 04:40 WBC 6.9 (4.8-10.8) K/uL RBC 3.40 L (4.40-5.90) Mil/uL Hgb 8.2 L (12.0-18.0) g/dL Hct 25.9 L (35.0-51.0) % MCV 76.3 L (80.0-94.0) fL MCH 24.2 L (27.0-31.0) pg MCHC 31.7 L (33.0-37.0) g/dL RDW 21.3 H (11.5-14.5) % Plt Count 131 (130-400) K/uL MPV 9.6 (7.2-11.7) fL Neut % (Auto) 68.8 (50.0-75.0) % Lymph % (Auto) 18.1 L (20.0-40.0) % Mcclain % (Auto) 8.3 (0.0-10.0) % Eos % (Auto) 3.9 (0.0-4.0) % Baso % (Auto) 0.9 (0.0-2.0) % Neut # (Auto) 4.8 (1.8-7.0) K/uL Lymph # (Auto) 1.3 (1.0-4.3) K/uL Mcclain # (Auto) 0.6 (0.0-0.8) K/uL Eos # (Auto) 0.3 (0.0-0.7) K/uL Baso # (Auto) 0.1 (0.0-0.2) K/uL PT (9.7-12.2) SECONDS INR APTT (21-34) SECONDS Puncture Site Rb pCO2 31 L (35-45) mm/Hg pO2 150 H (80-100) mm/Hg HCO3 24.4 (21-28) mmol/L ABG pH 7.47 H (7.35-7.45) ABG Total CO2 23.6 (22-28) mmol/L ABG O2 Saturation 98.7 H (95-98) % ABG Base Excess -0.7 (-2.0-3.0) mmol/L ABG Hemoglobin 8.5 L (11.7-17.4) g/dL ABG Carboxyhemoglobin 1.1 (0.5-1.5) % POC ABG HHb (Measured) 1.3 (0.0-5.0) % ABG Methemoglobin 0.5 (0.0-3.0) % Ming Test Na A-a O2 Difference 168.0 mm/Hg Respiratory Index 1.1 Hgb O2 Saturation 97.1 (95.0-98.0) % Vent Mode Prvc Mechanical Rate 22 FiO2 50.0 % Tidal Volume 500 PEEP 7 Sodium (132-148) mmol/L Potassium (3.6-5.2) mmol/L Chloride (98-107) mmol/L Carbon Dioxide (22-30) mmol/L Anion Gap (10-20) BUN (9-20) mg/dL Creatinine (0.8-1.5) mg/dL Est GFR ( Amer) Est GFR (Non-Af Amer) POC Glucose (mg/dL) 151 H (65-110) mg/dL Random Glucose (75-110) mg/dL Calcium (8.6-10.4) mg/dl Phosphorus (2.5-4.5) mg/dL Magnesium (1.6-2.3) mg/dL Total Bilirubin (0.2-1.3) mg/dL AST (17-59) U/L ALT (21-72) U/L Alkaline Phosphatase (38-126) U/L Troponin I (0.00-0.120) ng/mL Total Protein (6.3-8.3) g/dL Albumin (3.5-5.0) g/dL Globulin (2.2-3.9) gm/dL Albumin/Globulin Ratio (1.0-2.1) 07/11/17 07/11/17 07/11/17 Range/Units 23:33 21:17 17:27 WBC (4.8-10.8) K/uL RBC (4.40-5.90) Mil/uL Hgb (12.0-18.0) g/dL Hct (35.0-51.0) % MCV (80.0-94.0) fL MCH (27.0-31.0) pg MCHC (33.0-37.0) g/dL RDW (11.5-14.5) % Plt Count (130-400) K/uL MPV (7.2-11.7) fL Neut % (Auto) (50.0-75.0) % Lymph % (Auto) (20.0-40.0) % Mcclain % (Auto) (0.0-10.0) % Eos % (Auto) (0.0-4.0) % Baso % (Auto) (0.0-2.0) % Neut # (Auto) (1.8-7.0) K/uL Lymph # (Auto) (1.0-4.3) K/uL Mcclain # (Auto) (0.0-0.8) K/uL Eos # (Auto) (0.0-0.7) K/uL Baso # (Auto) (0.0-0.2) K/uL PT (9.7-12.2) SECONDS INR APTT 83 H D (21-34) SECONDS Puncture Site pCO2 (35-45) mm/Hg pO2 (80-100) mm/Hg HCO3 (21-28) mmol/L ABG pH (7.35-7.45) ABG Total CO2 (22-28) mmol/L ABG O2 Saturation (95-98) % ABG Base Excess (-2.0-3.0) mmol/L ABG Hemoglobin (11.7-17.4) g/dL ABG Carboxyhemoglobin (0.5-1.5) % POC ABG HHb (Measured) (0.0-5.0) % ABG Methemoglobin (0.0-3.0) % Ming Test A-a O2 Difference mm/Hg Respiratory Index Hgb O2 Saturation (95.0-98.0) % Vent Mode Mechanical Rate FiO2 % Tidal Volume PEEP Sodium (132-148) mmol/L Potassium (3.6-5.2) mmol/L Chloride (98-107) mmol/L Carbon Dioxide (22-30) mmol/L Anion Gap (10-20) BUN (9-20) mg/dL Creatinine (0.8-1.5) mg/dL Est GFR ( Amer) Est GFR (Non-Af Amer) POC Glucose (mg/dL) 146 H 136 H (65-110) mg/dL Random Glucose (75-110) mg/dL Calcium (8.6-10.4) mg/dl Phosphorus (2.5-4.5) mg/dL Magnesium (1.6-2.3) mg/dL Total Bilirubin (0.2-1.3) mg/dL AST (17-59) U/L ALT (21-72) U/L Alkaline Phosphatase (38-126) U/L Troponin I (0.00-0.120) ng/mL Total Protein (6.3-8.3) g/dL Albumin (3.5-5.0) g/dL Globulin (2.2-3.9) gm/dL Albumin/Globulin Ratio (1.0-2.1) 07/11/17 07/11/17 07/11/17 Range/Units 17:27 16:16 11:32 WBC (4.8-10.8) K/uL RBC (4.40-5.90) Mil/uL Hgb (12.0-18.0) g/dL Hct (35.0-51.0) % MCV (80.0-94.0) fL MCH (27.0-31.0) pg MCHC (33.0-37.0) g/dL RDW (11.5-14.5) % Plt Count (130-400) K/uL MPV (7.2-11.7) fL Neut % (Auto) (50.0-75.0) % Lymph % (Auto) (20.0-40.0) % Mcclain % (Auto) (0.0-10.0) % Eos % (Auto) (0.0-4.0) % Baso % (Auto) (0.0-2.0) % Neut # (Auto) (1.8-7.0) K/uL Lymph # (Auto) (1.0-4.3) K/uL Mcclain # (Auto) (0.0-0.8) K/uL Eos # (Auto) (0.0-0.7) K/uL Baso # (Auto) (0.0-0.2) K/uL PT (9.7-12.2) SECONDS INR APTT (21-34) SECONDS Puncture Site pCO2 (35-45) mm/Hg pO2 (80-100) mm/Hg HCO3 (21-28) mmol/L ABG pH (7.35-7.45) ABG Total CO2 (22-28) mmol/L ABG O2 Saturation (95-98) % ABG Base Excess (-2.0-3.0) mmol/L ABG Hemoglobin (11.7-17.4) g/dL ABG Carboxyhemoglobin (0.5-1.5) % POC ABG HHb (Measured) (0.0-5.0) % ABG Methemoglobin (0.0-3.0) % Ming Test A-a O2 Difference mm/Hg Respiratory Index Hgb O2 Saturation (95.0-98.0) % Vent Mode Mechanical Rate FiO2 % Tidal Volume PEEP Sodium (132-148) mmol/L Potassium (3.6-5.2) mmol/L Chloride (98-107) mmol/L Carbon Dioxide (22-30) mmol/L Anion Gap (10-20) BUN (9-20) mg/dL Creatinine (0.8-1.5) mg/dL Est GFR ( Amer) Est GFR (Non-Af Amer) POC Glucose (mg/dL) 130 H (65-110) mg/dL Random Glucose (75-110) mg/dL Calcium (8.6-10.4) mg/dl Phosphorus (2.5-4.5) mg/dL Magnesium (1.6-2.3) mg/dL Total Bilirubin (0.2-1.3) mg/dL AST (17-59) U/L ALT (21-72) U/L Alkaline Phosphatase (38-126) U/L Troponin I 0.0420 0.0570 (0.00-0.120) ng/mL Total Protein (6.3-8.3) g/dL Albumin (3.5-5.0) g/dL Globulin (2.2-3.9) gm/dL Albumin/Globulin Ratio (1.0-2.1) Laboratory Results - last 24 hr 07/11/17 07/11/17 07/11/17 11:32 16:16 17:27 WBC RBC Hgb Hct MCV MCH MCHC RDW Plt Count MPV Neut % (Auto) Lymph % (Auto) Mcclain % (Auto) Eos % (Auto) Baso % (Auto) Neut # (Auto) Lymph # (Auto) Mcclain # (Auto) Eos # (Auto) Baso # (Auto) PT INR APTT Puncture Site pCO2 pO2 HCO3 ABG pH ABG Total CO2 ABG O2 Saturation ABG Base Excess ABG Hemoglobin ABG Carboxyhemoglobin POC ABG HHb (Measured) ABG Methemoglobin Ming Test A-a O2 Difference Respiratory Index Hgb O2 Saturation Vent Mode Mechanical Rate FiO2 Tidal Volume PEEP Sodium Potassium Chloride Carbon Dioxide Anion Gap BUN Creatinine Est GFR ( Amer) Est GFR (Non-Af Amer) POC Glucose (mg/dL) 130 H Random Glucose Calcium Phosphorus Magnesium Total Bilirubin AST ALT Alkaline Phosphatase Troponin I 0.0570 0.0420 Total Protein Albumin Globulin Albumin/Globulin Ratio 07/11/17 07/11/17 07/11/17 17:27 21:17 23:33 WBC RBC Hgb Hct MCV MCH MCHC RDW Plt Count MPV Neut % (Auto) Lymph % (Auto) Mcclain % (Auto) Eos % (Auto) Baso % (Auto) Neut # (Auto) Lymph # (Auto) Mcclain # (Auto) Eos # (Auto) Baso # (Auto) PT INR APTT 83 H D Puncture Site pCO2 pO2 HCO3 ABG pH ABG Total CO2 ABG O2 Saturation ABG Base Excess ABG Hemoglobin ABG Carboxyhemoglobin POC ABG HHb (Measured) ABG Methemoglobin Ming Test A-a O2 Difference Respiratory Index Hgb O2 Saturation Vent Mode Mechanical Rate FiO2 Tidal Volume PEEP Sodium Potassium Chloride Carbon Dioxide Anion Gap BUN Creatinine Est GFR ( Amer) Est GFR (Non-Af Amer) POC Glucose (mg/dL) 136 H 146 H Random Glucose Calcium Phosphorus Magnesium Total Bilirubin AST ALT Alkaline Phosphatase Troponin I Total Protein Albumin Globulin Albumin/Globulin Ratio 07/12/17 07/12/17 07/12/17 04:40 05:39 05:59 WBC 6.9 RBC 3.40 L Hgb 8.2 L Hct 25.9 L MCV 76.3 L MCH 24.2 L MCHC 31.7 L RDW 21.3 H Plt Count 131 MPV 9.6 Neut % (Auto) 68.8 Lymph % (Auto) 18.1 L Mcclain % (Auto) 8.3 Eos % (Auto) 3.9 Baso % (Auto) 0.9 Neut # (Auto) 4.8 Lymph # (Auto) 1.3 Mcclain # (Auto) 0.6 Eos # (Auto) 0.3 Baso # (Auto) 0.1 PT INR APTT Puncture Site Rb pCO2 31 L pO2 150 H HCO3 24.4 ABG pH 7.47 H ABG Total CO2 23.6 ABG O2 Saturation 98.7 H ABG Base Excess -0.7 ABG Hemoglobin 8.5 L ABG Carboxyhemoglobin 1.1 POC ABG HHb (Measured) 1.3 ABG Methemoglobin 0.5 Ming Test Na A-a O2 Difference 168.0 Respiratory Index 1.1 Hgb O2 Saturation 97.1 Vent Mode Prvc Mechanical Rate 22 FiO2 50.0 Tidal Volume 500 PEEP 7 Sodium Potassium Chloride Carbon Dioxide Anion Gap BUN Creatinine Est GFR ( Amer) Est GFR (Non-Af Amer) POC Glucose (mg/dL) 151 H Random Glucose Calcium Phosphorus Magnesium Total Bilirubin AST ALT Alkaline Phosphatase Troponin I Total Protein Albumin Globulin Albumin/Globulin Ratio 07/12/17 07/12/17 07/12/17 05:59 05:59 11:24 WBC RBC Hgb Hct MCV MCH MCHC RDW Plt Count MPV Neut % (Auto) Lymph % (Auto) Mcclain % (Auto) Eos % (Auto) Baso % (Auto) Neut # (Auto) Lymph # (Auto) Mcclain # (Auto) Eos # (Auto) Baso # (Auto) PT 15.3 H INR 1.4 APTT 75 H D Puncture Site pCO2 pO2 HCO3 ABG pH ABG Total CO2 ABG O2 Saturation ABG Base Excess ABG Hemoglobin ABG Carboxyhemoglobin POC ABG HHb (Measured) ABG Methemoglobin Ming Test A-a O2 Difference Respiratory Index Hgb O2 Saturation Vent Mode Mechanical Rate FiO2 Tidal Volume PEEP Sodium 141 Potassium 3.9 Chloride 110 H Carbon Dioxide 23 Anion Gap 12 BUN 14 Creatinine 1.0 Est GFR ( Amer) > 60 Est GFR (Non-Af Amer) > 60 POC Glucose (mg/dL) 159 H Random Glucose 128 H Calcium 8.3 L Phosphorus 3.0 Magnesium 1.7 Total Bilirubin 0.5 AST 32 ALT 19 L D Alkaline Phosphatase 59 Troponin I Total Protein 5.8 L Albumin 2.8 L Globulin 3.0 Albumin/Globulin Ratio 0.9 L EKG/Cardiology Studies: Cardiology / EKG Studies 07/12/17 23:15 ELECTROCARDIOGRAM DAILY Comment: Mode Of Transportation: PORTABLE Reason For Exam: f/u 07/13/17 23:15 ELECTROCARDIOGRAM DAILY Comment: Mode Of Transportation: PORTABLE Reason For Exam: f/u Fingerstick Blood Sugar Results: 151 Review of Systems - Review of Systems Review of Systems: Patient intubated Critical Care Progress Note - Nutrition Nutrition: Nutrition Category Date Time Status NPO Diet [DIET] Diets 07/11/17 Breakfast Active Assessment/Plan - Assessment and Plan (Free Text) Assessment: Patient 81 year old male with PMHx of htn, dm, prior VT and CABG admitted last night for confusion, decreased responsiveness and agonal breathing after eating. Pt intubated in the field. Had seizure en route to ED. While in ED had cynthia then brief arrest. Required 1 epi /cpr. Plan: Neuro: GCS: 10T Sedation: Fentanyl 2mcg/kg/hr | Propofol (Titrate PRN) EEG PENDING Read Keppra 500 Q12 per Neuro Neurology Consulted. Cardio A: HTN, Diabetes, Prior VT, CABG Patient has been normotensive. Carotid Duplex Ordered. ECHO - PENDING READ Pulm A: Res. failure Intubated: 50% Fi02, 5 PEEP, 18 RR, 450ml TV CXR (07/12): No acute infiltrate 07/12/17 4:40 ABG 7.47/31/150/24.4 Repeat ABG ordered GI Protonix 40 IVP Daily Endo A: DM II POC Glucose Q6H HgBA1C 7.2 Regular ISS Hold Home Meds Nephro/electrolytes Magnesium and Potassium Replenished ID Febrile in AM, No Leukocytosis Zosyn 3.375 Q6H MRSA not Detected in Nares Blood Cultures - NEGATIVE Urine Cultures - PENDING Heme/Onc A: Microcytic Anemia Stool Occult Blood Consider Anemia Workup - Iron, TIBC, Ferritin, B12, Folate, haptoglobin, Retic Count MSK A: Hx of Back Surgery No Active Issues at this time. Prophylaxis Heparin Protonix IV Patient discussed with ICU Attending Tigist Childress, PGY-1 <Freddy Davis - Last Filed: 07/18/17 06:46> CCU Objective - Vital Signs / Intake & Output Vital Signs (Last 4 hours): Vital Signs Pulse 07/18/17 03:56 77 - Medications Active Medications: Active Medications Generic Name Dose Route Start Last Admin Trade Name Freq PRN Reason Stop Dose Admin Acetaminophen 650 mg 07/16/17 22:01 Tylenol 650mg/20.3ml Solution Ud PO Q6H PRN Temp 100.4 or Greater. Albuterol/Ipratropium 3 ml 07/16/17 16:50 Duoneb 3 Mg/0.5 Mg (3 Ml) Ud INH RQ4 PRN Shortness of Breath Aspirin 81 mg 07/13/17 10:00 07/17/17 09:12 Ecotrin PO 81 mg DAILY LITTLE Administration Clopidogrel Bisulfate 75 mg 07/13/17 10:00 07/17/17 09:12 Plavix PO 75 mg DAILY LITTLE Administration Dextrose 0 ml 07/16/17 01:34 Dextrose 50% Inj IVP .STAT PRN Hypoglycemia Protocol Protocol Dextrose 0 gm 07/16/17 01:34 Glutose 15 PO .ONCE PRN Hypoglycemia Protocol Protocol Famotidine 20 mg 07/18/17 10:00 Pepcid PO BID LITTLE Ferric Sodium Gluconate Complex 125 mg 07/17/17 13:00 07/17/17 13:25 Ferrlecit IVPB 07/25/17 13:01 125 mg DAILY LITTLE Administration Glucagon 0 mg 07/16/17 01:34 Glucagen Diagnostic Kit IM .STAT PRN Hypoglycemia Protocol Protocol Heparin Sodium (Porcine) 5,000 units 07/17/17 06:00 07/18/17 05:16 Heparin SC 5,000 units Q8 LITTLE Administration Hydralazine HCl 50 mg 07/17/17 10:14 07/18/17 01:48 Apresoline PO 50 mg Q8H LITTLE Administration Levetiracetam 500 mg/ Sodium 105 mls @ 420 mls/hr 07/11/17 22:00 07/17/17 21: 18 Chloride IVPB 420 mls/hr Q12H LITTLE Administration Dextrose 1,000 mls @ 0 mls/hr 07/16/17 01:34 Dextrose 5% In Water 1000 Ml IV .Q0M PRN Hypoglycemia Protocol Protocol Per Protocol Insulin Human Regular 0 unit 07/14/17 16:30 07/17/17 22:44 Novolin R SC Not Given ACHS LITTLE Protocol Losartan Potassium 50 mg 07/16/17 10:15 07/17/17 09:12 Cozaar PO 50 mg DAILY LITTLE Administration Quetiapine Fumarate 25 mg 07/16/17 22:00 07/17/17 21:19 Seroquel PO Not Given HS LITTLE Rosuvastatin Calcium 10 mg 07/17/17 22:00 07/17/17 21:18 Crestor PO 10 mg HS LITTLE Administration - Patient Studies Lab Studies: Lab Studies 07/17/17 07/17/17 07/17/17 Range/Units 20:57 16:06 12:10 Sodium (132-148) mmol/L Potassium (3.6-5.2) mmol/L Chloride (98-107) mmol/L Carbon Dioxide (22-30) mmol/L Anion Gap (10-20) BUN (9-20) mg/dL Creatinine (0.8-1.5) mg/dL Est GFR ( Amer) Est GFR (Non-Af Amer) POC Glucose (mg/dL) 147 H 134 H 151 H (65-110) mg/dL Random Glucose (75-110) mg/dL Calcium (8.6-10.4) mg/dl Ferritin ng/mL Total Bilirubin (0.2-1.3) mg/dL AST (17-59) U/L ALT (21-72) U/L Alkaline Phosphatase (38-126) U/L Total Protein (6.3-8.3) g/dL Albumin (3.5-5.0) g/dL Globulin (2.2-3.9) gm/dL Albumin/Globulin Ratio (1.0-2.1) 07/17/17 07/17/17 Range/Units 06:44 06:32 Sodium 142 (132-148) mmol/L Potassium 3.8 (3.6-5.2) mmol/L Chloride 104 (98-107) mmol/L Carbon Dioxide 28 (22-30) mmol/L Anion Gap 14 (10-20) BUN 9 (9-20) mg/dL Creatinine 0.7 L (0.8-1.5) mg/dL Est GFR ( Amer) > 60 Est GFR (Non-Af Amer) > 60 POC Glucose (mg/dL) 157 H (65-110) mg/dL Random Glucose 135 H (75-110) mg/dL Calcium 8.8 (8.6-10.4) mg/dl Ferritin 16.2 ng/mL Total Bilirubin 0.5 (0.2-1.3) mg/dL AST 28 (17-59) U/L ALT 20 L (21-72) U/L Alkaline Phosphatase 69 (38-126) U/L Total Protein 7.0 (6.3-8.3) g/dL Albumin 3.5 (3.5-5.0) g/dL Globulin 3.6 (2.2-3.9) gm/dL Albumin/Globulin Ratio 1.0 (1.0-2.1) Laboratory Results - last 24 hr 07/17/17 07/17/17 07/17/17 06:32 06:44 12:10 Sodium 142 Potassium 3.8 Chloride 104 Carbon Dioxide 28 Anion Gap 14 BUN 9 Creatinine 0.7 L Est GFR ( Amer) > 60 Est GFR (Non-Af Amer) > 60 POC Glucose (mg/dL) 157 H 151 H Random Glucose 135 H Calcium 8.8 Ferritin 16.2 Total Bilirubin 0.5 AST 28 ALT 20 L Alkaline Phosphatase 69 Total Protein 7.0 Albumin 3.5 Globulin 3.6 Albumin/Globulin Ratio 1.0 07/17/17 07/17/17 16:06 20:57 Sodium Potassium Chloride Carbon Dioxide Anion Gap BUN Creatinine Est GFR ( Amer) Est GFR (Non-Af Amer) POC Glucose (mg/dL) 134 H 147 H Random Glucose Calcium Ferritin Total Bilirubin AST ALT Alkaline Phosphatase Total Protein Albumin Globulin Albumin/Globulin Ratio Critical Care Progress Note - Nutrition Nutrition: Nutrition Category Date Time Status Heart Healthy Diet [DIET] Diets 07/14/17 Breakfast Active Attending/Attestation - Attestation I have personally seen and examined this patient.: Yes I have fully participated in the care of the patient.: Yes I have reviewed all pertinent clinical information: Yes"
--- NOTE | 2017-07-12 12:22 | CARD ---
APPROVED REPORT EKG Measurement Heart [id number] <Conclusion> Normal sinus rhythm with sinus arrhythmia Right bundle branch block Left anterior fascicular block Bifascicular block Abnormal ECG
--- NOTE | 2017-07-12 12:22 | CARD ---
APPROVED REPORT EKG Measurement Heart [id number] [id number] [id number] <Conclusion> Unusual P axis, possible ectopic atrial tachycardia with AV dissociation and Idioventricular rhythm Right bundle branch block Left anterior fascicular block Bifascicular block Abnormal ECG
[2017-07-12] MEDS: Propofol 10 mg/ml Inj (20 ML) ONE ×2 (12:31→12:36)
[2017-07-12 14:03] LABS: MEAN CELL VOLUME 76.6 fL (80.0-94.0); MEAN CORPUSCULAR HEMOGLOBIN 24.2 pg (27.0-31.0); MEAN CORPUSCULAR HGB CONC 31.6 g/dL (33.0-37.0); MEAN PLATELET VOLUME 8.7 fL (7.2-11.7); RBC 3.32 Mil/uL (4.40-5.90); RED CELL DISTRIBUTION WIDTH 21.1 % (11.5-14.5); WHITE BLOOD COUNT 7.5 K/uL (4.8-10.8)
[2017-07-12 16:26] LABS: ABG ALLEN TEST POS; ARTERIAL BLOOD GAS HEMOGLOBIN 7.6 g/dL (11.7-17.4); ARTERIAL BLOOD GAS O2 SAT 99.1 % (95-98); ARTERIAL BLOOD GAS PCO2 38 mm/Hg (35-45); ARTERIAL BLOOD GAS PO2 170 mm/Hg (80-100); ARTERIAL BLOOD GAS TCO2 24.7 mmol/L (22-28)
[2017-07-12] MEDS ORDERED: (Novolin R) Insulin Human Regular 100 units/ml vial SC SCH ×2 (16:30→18:00)
--- NOTE | 2017-07-12 17:03 | CARD ---
APPROVED REPORT EXAM: Two-dimensional and M-mode echocardiogram with Doppler and color Doppler. Other Information Quality : GoodRhythm : INDICATION CARDIAC ARREST RISK FACTORS Obesity 2D DIMENSIONS IVSd1.3 (0.7-1.1cm)LVDd4.3 (3.9-5.9cm) PWd1.3 (0.7-1.1cm)LVDs2.2 (2.5-4.0cm) FS (%) 47.7 %LVEF (%)79.4 (>50%) M-Mode DIMENSIONS RVDd0.98 (2.1-3.2cm)Left Atrium (MM)3.80 (2.5-4.0cm) IVSd1.07 (0.7-1.1cm)Aortic Root4.27 (2.2-3.7cm) LVDd5.24 (4.0-5.6cm)Aortic Cusp Exc.2.24 (1.5-2.0cm) PWd1.01 (0.7-1.1cm)FS (%) 49 % LVDs2.67 (2.0-3.8cm)LVEF (%)80 (>50%) Mitral Valve MV E Prhupaqr219.0cm/sMV A Ocmcarsk337.1cm/sE/A ratio0.8 TDI E/Lateral E'0.0E/Medial E'0.0 Tricuspid Valve TR Peak [id number]/sTR Peak Gr.[id number] LEFT VENTRICLE The left ventricle is normal size. There is mild concentric left ventricular hypertrophy. The Ejection Fraction is >70%. There is normal LV segmental wall motion. Transmitral Doppler flow pattern is Grade I-abnormal relaxation pattern. The left atrial pressure is mildly elevated. RIGHT VENTRICLE The right ventricle is normal size. The right ventricular systolic function is normal. ATRIA The left atrium size is normal. The right atrium size is normal. The interatrial septum is intact with no evidence for an atrial septal defect. AORTIC VALVE The aortic valve is trileaflet. The aortic valve is moderately calcified. There is trace aortic regurgitation. MITRAL VALVE The mitral valve is thickened but opens well. Mitral annular calcification is moderate. Mitral regurgitation is trace. TRICUSPID VALVE The tricuspid valve is normal in structure. There is trace tricuspid regurgitation. PULMONIC VALVE The pulmonary valve is normal in structure. There is trace pulmonic valvular regurgitation. GREAT VESSELS The aortic root is mildly enlarged. The aortic root displays moderate sclerocalcific changes of the aortic root. PERICARDIAL EFFUSION There is no pericardial effusion. <Conclusion> The left ventricle is normal size. There is mild concentric left ventricular hypertrophy. The Ejection Fraction is >70%. Transmitral Doppler flow pattern is Grade I-abnormal relaxation pattern. The left atrial pressure is mildly elevated. The aortic valve is trileaflet. The aortic valve is moderately calcified. There is trace aortic regurgitation. The aortic root is mildly enlarged. The aortic root displays moderate sclerocalcific changes of the aortic root.
[2017-07-12] MEDS: Propofol 10 mg/ml 1,000 MG/100 ML VIAL IV PRN (17:48)
--- NOTE | 2017-07-12 21:11 | CP.PCM.CON ---
History of Present Illness - History of Present Illness History of Present Illness: Cardiac EP consult Re: Cardiac arrest Complete heart block Chart imaging reviewed Historical source: chart; patient intubated and sedated Admitted with a history of "sudden unresponsiveness, left gaze preference, left hemiparesis"; initial rhythm unclear; during his transportation developed generalized seizures and was noted to be pulseless and in complete heart block which responded to atropine. Post admission a CT scan of the head did not show any acute changes. he regained consciousness; currentlyis intubated and sedated Past medical/Surgical history Systemic hypertension Diabetes Mellitus Coronary artery disease Myocardial infarction Coronary artery bypass graft surgery Medications: reviewed Exam Intubated hands in mittens No distress Afebrile Normal venous pressures Faint left carotid bruit Midline chest scar PMI ? Normal heart sounds intensity No murmurs Abdomen:soft Extremities: no edema Responds; moves all four extremities; neck supple EKG: sinus; complete right bundle branch block, left fascicular block Tel: reviewed; PVC; couplets Echo: Normal LVEF; mild aortic sclerosis; diastolic dysfunction; normal RV dimensions Labs: K 5.6;microcytic anemia Past Patient History - Past Medical History & Family History Past Medical History?: Yes - Past Social History Smoking Status: Former Smoker - CARDIAC Hx Hypertension: Yes - NEUROLOGICAL Hx Seizures: Yes - ENDOCRINE/METABOLIC Hx Diabetes Mellitus Type 2: Yes - MUSCULOSKELETAL/RHEUMATOLOGICAL Hx Arthritis: Yes Hx Back Pain: Yes Hx Falls: Yes Hx Herniated Disk: Yes - GENITOURINARY/GYNECOLOGICAL Other/Comment: bph - PSYCHIATRIC Hx Substance Use: No - SURGICAL HISTORY Hx Coronary Artery Bypass Graft: Yes Other/Comment: ester in back - ANESTHESIA Hx Anesthesia: Yes Hx Anesthesia Reactions: No Hx Malignant Hyperthermia: No Has any member of the family had a problem w/ anesthesia?: No Meds Allergies/Adverse Reactions: Allergies Allergy/AdvReac Type Severity Reaction Status Date / Time No Known Allergies Allergy Verified 07/10/17 19:23 - Medications Medications: Current Medications Acetaminophen (Tylenol 650mg/20.3ml Solution Ud) 650 mg NG Q4H PRN PRN Reason: Temp 100.4 or Greater. Aspirin (Aspirin) 325 mg PO DAILY [facility] Last Admin: 07/12/17 10:32 Dose: 325 mg Aspirin (Ecotrin) 81 mg PO DAILY [facility] Clopidogrel Bisulfate (Plavix) 75 mg PO DAILY [facility] Heparin Sodium (Porcine) (Heparin) 5,000 units SC Q8 [facility] Last Admin: 07/12/17 14:49 Dose: 5,000 units Levetiracetam 500 mg/ Sodium (Chloride) 105 mls @ 420 mls/hr IVPB Q12H [facility] Last Admin: 07/12/17 09:13 Dose: 420 mls/hr Piperacillin Sod/Tazobactam Sod (Zosyn 3.375 Gm Iv Premix) 3.375 gm in 50 mls @ 100 mls/hr IVPB Q6H [facility] PRN Reason: Protocol Last Admin: 07/12/17 15:00 Dose: 100 mls/hr Propofol (Diprivan) 1,000 mg in 100 mls @ 2.749 mls/hr IV .Q24H PRN; Protocol; 5 MCG/KG/MIN PRN Reason: TITRATE PER MD ORDER Last Admin: 07/12/17 17:48 Dose: 18.91 mcg/kg/min, 10.4 mls/hr Insulin Human Regular (Novolin R) 0 unit SC Q6H [facility] PRN Reason: Protocol Pantoprazole Sodium (Protonix Inj) 40 mg IVP DAILY [facility] Last Admin: 07/12/17 09:13 Dose: 40 mg Results - Vital Signs Recent Vital Signs: Last Vital Signs Temp 100.1 F H 07/12/17 20:00 Pulse 81 07/12/17 08:12 Resp 22 07/12/17 08:12 BP 136/54 L 07/12/17 08:12 Pulse Ox 100 07/12/17 16:00 - Labs Result Diagrams: 07/12/17 13:46 07/12/17 05:59 Labs: Laboratory Results - last 24 hr 07/11/17 07/11/17 07/12/17 21:17 23:33 04:40 WBC RBC Hgb Hct MCV MCH MCHC RDW Plt Count MPV Neut % (Auto) Lymph % (Auto) [place] % (Auto) Eos % (Auto) Baso % (Auto) Neut # (Auto) Lymph # (Auto) [place] # (Auto) Eos # (Auto) Baso # (Auto) Differential Comment PT INR APTT Puncture Site Rb pCO2 31 L pO2 150 H HCO3 24.4 ABG pH 7.47 H ABG Total CO2 23.6 ABG O2 Saturation 98.7 H ABG Base Excess -0.7 ABG Hemoglobin 8.5 L ABG Carboxyhemoglobin 1.1 POC ABG HHb (Measured) 1.3 ABG Methemoglobin 0.5 Ming Test Na A-a O2 Difference 168.0 Respiratory Index 1.1 Hgb O2 Saturation 97.1 Vent Mode Prvc Mechanical Rate 22 FiO2 50.0 Tidal Volume 500 PEEP 7 Sodium Potassium Chloride Carbon Dioxide Anion Gap BUN Creatinine Est GFR ( Amer) Est GFR (Non-Af Amer) POC Glucose (mg/dL) 136 H 146 H Random Glucose Calcium Phosphorus Magnesium Total Bilirubin AST ALT Alkaline Phosphatase Total Protein Albumin Globulin Albumin/Globulin Ratio 07/12/17 07/12/17 07/12/17 05:39 05:59 05:59 WBC 6.9 RBC 3.40 L Hgb 8.2 L Hct 25.9 L MCV 76.3 L MCH 24.2 L MCHC 31.7 L RDW 21.3 H Plt Count 131 MPV 9.6 Neut % (Auto) 68.8 Lymph % (Auto) 18.1 L [place] % (Auto) 8.3 Eos % (Auto) 3.9 Baso % (Auto) 0.9 Neut # (Auto) 4.8 Lymph # (Auto) 1.3 [place] # (Auto) 0.6 Eos # (Auto) 0.3 Baso # (Auto) 0.1 Differential Comment PT 15.3 H INR 1.4 APTT 75 H D Puncture Site pCO2 pO2 HCO3 ABG pH ABG Total CO2 ABG O2 Saturation ABG Base Excess ABG Hemoglobin ABG Carboxyhemoglobin POC ABG HHb (Measured) ABG Methemoglobin Ming Test A-a O2 Difference Respiratory Index Hgb O2 Saturation Vent Mode Mechanical Rate FiO2 Tidal Volume PEEP Sodium Potassium Chloride Carbon Dioxide Anion Gap BUN Creatinine Est GFR ( Amer) Est GFR (Non-Af Amer) POC Glucose (mg/dL) 151 H Random Glucose Calcium Phosphorus Magnesium Total Bilirubin AST ALT Alkaline Phosphatase Total Protein Albumin Globulin Albumin/Globulin Ratio 07/12/17 07/12/17 07/12/17 05:59 11:24 13:46 WBC 7.5 RBC 3.32 L Hgb 8.0 L Hct 25.5 L MCV 76.6 L MCH 24.2 L MCHC 31.6 L RDW 21.1 H Plt Count 128 L MPV 8.7 Neut % (Auto) Lymph % (Auto) [place] % (Auto) Eos % (Auto) Baso % (Auto) Neut # (Auto) Lymph # (Auto) [place] # (Auto) Eos # (Auto) Baso # (Auto) Differential Comment PT INR APTT Puncture Site pCO2 pO2 HCO3 ABG pH ABG Total CO2 ABG O2 Saturation ABG Base Excess ABG Hemoglobin ABG Carboxyhemoglobin POC ABG HHb (Measured) ABG Methemoglobin Ming Test A-a O2 Difference Respiratory Index Hgb O2 Saturation Vent Mode Mechanical Rate FiO2 Tidal Volume PEEP Sodium 141 Potassium 3.9 Chloride 110 H Carbon Dioxide 23 Anion Gap 12 BUN 14 Creatinine 1.0 Est GFR ( Amer) > 60 Est GFR (Non-Af Amer) > 60 POC Glucose (mg/dL) 159 H Random Glucose 128 H Calcium 8.3 L Phosphorus 3.0 Magnesium 1.7 Total Bilirubin 0.5 AST 32 ALT 19 L D Alkaline Phosphatase 59 Total Protein 5.8 L Albumin 2.8 L Globulin 3.0 Albumin/Globulin Ratio 0.9 L 07/12/17 07/12/17 16:20 17:39 WBC RBC Hgb Hct MCV MCH MCHC RDW Plt Count MPV Neut % (Auto) Lymph % (Auto) [place] % (Auto) Eos % (Auto) Baso % (Auto) Neut # (Auto) Lymph # (Auto) [place] # (Auto) Eos # (Auto) Baso # (Auto) Differential Comment PT INR APTT Puncture Site Lra pCO2 38 pO2 170 H HCO3 24.0 ABG pH 7.40 ABG Total CO2 24.7 ABG O2 Saturation 99.1 H ABG Base Excess -1.2 ABG Hemoglobin 7.6 L ABG Carboxyhemoglobin 1.5 POC ABG HHb (Measured) 0.9 ABG Methemoglobin 1.2 Ming Test Pos A-a O2 Difference 139.0 Respiratory Index 0.8 Hgb O2 Saturation 96.4 Vent Mode Prvc Mechanical Rate 18 FiO2 50.0 Tidal Volume 450 PEEP 5 Sodium Potassium Chloride Carbon Dioxide Anion Gap BUN Creatinine Est GFR ( Amer) Est GFR (Non-Af Amer) POC Glucose (mg/dL) 135 H Random Glucose Calcium Phosphorus Magnesium Total Bilirubin AST ALT Alkaline Phosphatase Total Protein Albumin Globulin Albumin/Globulin Ratio Assessment & Plan - Assessment and Plan (Free Text) Assessment: Mr. Nettles presented with sudden transient unresponsiveness focal neurological deficits, seizures, complete heart block on a background of vascular risk factors, established vascular disease bifascicular conduction block The mechanism of transient loss of consciousness is unclear; Assuming a hemodynamic event (documentation and evolution unavailable) a bradyarrhythmia ( Lozoya Jimenez attack) is a possibility in a setting of a baseline conduction defect; the mild increase in serum potassium is likely incidental or may have a tangential effect on myocardial conduction Preserved LV function argues against a ventricular arrhythmia If hypoglycemia and a primary neurological events are discounted, would exclude myocardial ischemia as a trigger for a ventricular arrhythmia. If the grafted coronaries are not obstructive, options include an EP study, followed by a device implant (ICD /pacemaker/Loop recorder) Plan: Obtain baseline history from family and PMD Retrieve EMS records regarding initial rhythm and documentation of complete AV block Avoid conduction "odell-stressors" include medications and electrolyte changes Cardiac cath. ?EPS ?Device implant - Date & Time Date: 07/12/17 Time: 21:24
--- NOTE | 2017-07-12 23:23 | PCM.EEG ---
Electroencephalogram Report - Electroencephalogram Report Procedure Date: 07/12/17 Interpretation: This is preliminary report that shows that there is diffuse generalized slowng, with normal sleep and no seizures. Impression: Moderate encephalopathy no seizures
[2017-07-13] MEDS: Dexmedetomidine Hydrochloride 200 MCG in Sodium Chloride 0.9% 48 ML IV PRN ×3 (03:23→10:57)
[2017-07-13] MEDS: Piperacill/Tazo 3.375gm in Dex 3.375 GM/50 ML BAG IVPB SCH ×4 (03:25→21:45)
[2017-07-13] MEDS: Propofol 10 mg/ml 1,000 MG/100 ML VIAL IV PRN (04:15)
--- NOTE | 2017-07-13 05:09 | CP.PCM.PN ---
Subjective - Date & Time of Evaluation Date of Evaluation: 07/13/17 Time of Evaluation: 05:09 - Subjective Subjective: Mr. Nettles was seen and examined at the bedside in ICU. He remains on mechanical ventilator on a PRVC mode. He opens his eyes spontaneously, moves all his extremities spontaneously and fights staff during assessment and am care. He is on a propofol drip for sedation. He has episode of restlessness and agitation with bilateral hand mitten, wrist restraints. EEG showed no seizure activity but a moderate encephalopathy.There was no untoward events overnight. Objective - Vital Signs/Intake and Output Vital Signs (last 24 hours): Temp Pulse Resp BP Pulse Ox 98.9 F 72 18 112/52 L 100 07/13/17 00:00 07/13/17 00:00 07/13/17 00:00 07/13/17 00:00 07/13/17 00:00 Intake and Output: 07/12/17 07/13/17 18:59 06:59 Intake Total 799.4 566.8 Output Total 760 360 Balance 39.4 206.8 - Medications Medications: Current Medications Acetaminophen (Tylenol 650mg/20.3ml Solution Ud) 650 mg NG Q4H PRN PRN Reason: Temp 100.4 or Greater. Aspirin (Aspirin) 325 mg PO DAILY [facility] Last Admin: 07/12/17 10:32 Dose: 325 mg Aspirin (Ecotrin) 81 mg PO DAILY [facility] Clopidogrel Bisulfate (Plavix) 75 mg PO DAILY [facility] Heparin Sodium (Porcine) (Heparin) 5,000 units SC Q8 [facility] Last Admin: 07/12/17 21:22 Dose: 5,000 units Levetiracetam 500 mg/ Sodium (Chloride) 105 mls @ 420 mls/hr IVPB Q12H [facility] Last Admin: 07/12/17 21:22 Dose: 420 mls/hr Piperacillin Sod/Tazobactam Sod (Zosyn 3.375 Gm Iv Premix) 3.375 gm in 50 mls @ 100 mls/hr IVPB Q6H [facility] PRN Reason: Protocol Last Admin: 07/13/17 03:25 Dose: 100 mls/hr Propofol (Diprivan) 1,000 mg in 100 mls @ 2.749 mls/hr IV .Q24H PRN; Protocol; 5 MCG/KG/MIN PRN Reason: TITRATE PER MD ORDER Last Admin: 07/13/17 04:15 Dose: 14.55 mcg/kg/min, 8 mls/hr Dexmedetomidine HCl 200 mcg/ (Sodium Chloride) 50 mls @ 4.58 mls/hr IV TITR PRN ; Protocol; 0.2 MCG/KG/HR PRN Reason: Agitation Last Titration: 07/13/17 04:15 Dose: Infused Insulin Human Regular (Novolin R) 0 unit SC Q6H [facility] PRN Reason: Protocol Last Admin: 07/13/17 00:00 Dose: Not Given Pantoprazole Sodium (Protonix Inj) 40 mg IVP DAILY [facility] Last Admin: 07/12/17 09:13 Dose: 40 mg - Labs Labs: 07/12/17 13:46 07/12/17 05:59 PT 15.3 SECONDS (9.7-12.2) H 07/12/17 05:59 INR 1.4 07/12/17 05:59 APTT 75 SECONDS (21-34) H D 07/12/17 05:59 - Constitutional Appears: No Acute Distress - Head Exam Head Exam: NORMAL INSPECTION - Neurological Exam Neurological Exam: Awake Neuro motor strength exam: Left Upper Extremity: 3, Right Upper Extremity: 3, Left Lower Extremity: 3, Right Lower Extremity: 3 Additional comments: e opens his eyes spontaneously, moves all his extremities spontaneously and fights staff during assessment and am care. Sensation is intact. Assessment and Plan (1) Seizure Assessment & Plan: Case discussed with Dr. Cortes, continue all current medical regimen. Follow up echocardiogram. MRI not possible at this time due to patient condition, recommend carotid doppler to evaluate left ICA and carotid bifurcation. If it remains with significant stenosis, recommend neurointerventionalist consult. Status: Acute
[2017-07-13 05:58] LABS: ARTERIAL BLOOD GAS HCO3 25.2 mmol/L (21-28); ARTERIAL BLOOD GAS HEMOGLOBIN 8.8 g/dL (11.7-17.4); ARTERIAL BLOOD GAS O2 SAT 98.2 % (95-98); ARTERIAL BLOOD GAS PCO2 36 mm/Hg (35-45); ARTERIAL BLOOD GAS PH 7.44 (7.35-7.45); ARTERIAL BLOOD GAS PO2 85 mm/Hg (80-100); ARTERIAL BLOOD GAS TCO2 25.6 mmol/L (22-28)
[2017-07-13] MEDS: (Novolin R) Insulin Human Regular 100 units/ml vial SC SCH ×4 (06:04→17:34)
[2017-07-13 06:23] LABS: BASO % 0.4 % (0.0-2.0); EOS # 0.3 K/uL (0.0-0.7); EOS % 3.4 % (0.0-4.0); HEMOGLOBIN 8.5 g/dL (12.0-18.0); LYMPH # 0.6 K/uL (1.0-4.3); LYMPH % 7.1 % (20.0-40.0); MEAN CELL VOLUME 77.4 fL (80.0-94.0); MEAN CORPUSCULAR HEMOGLOBIN 24.7 pg (27.0-31.0); MEAN CORPUSCULAR HGB CONC 31.9 g/dL (33.0-37.0); MEAN PLATELET VOLUME 9.1 fL (7.2-11.7); MONO # 0.5 K/uL (0.0-0.8); MONO % 5.8 % (0.0-10.0); NEUT # 6.8 K/uL (1.8-7.0); NEUT % 83.3 % (50.0-75.0); PLATELET COUNT 124 K/uL (130-400); RBC 3.45 Mil/uL (4.40-5.90); WHITE BLOOD COUNT 8.1 K/uL (4.8-10.8)
[2017-07-13 06:45] LABS: ALB/GLOB RATIO 0.9 (1.0-2.1); ALBUMIN 2.9 g/dL (3.5-5.0); ALT/SGPT 16 U/L (21-72); AST/SGOT 36 U/L (17-59); BLOOD UREA NITROGEN 10 mg/dL (9-20); CALCIUM 8.3 mg/dl (8.6-10.4); GFR AFRICAN-AMERICAN > 60; GFR NON-AFRICAN AMERICAN > 60
[2017-07-13 08:23] LABS: EOSINOPHIL 2 % (0-4); LYMPHOCYTE 6 % (20-40); MONOCYTE 4 % (0-10); NEUTROPHIL 88 % (50-75); PLATELET ESTIMATE SLIGHTLY DECREASED (NORMAL); TOTAL CELLS COUNTED 100
[2017-07-13 08:24] LABS: ANISOCYTOSIS SLIGHT; HYPOCHROMIC SLIGHT; POIKILOCYTOSIS SLIGHT
[2017-07-13 08:25] LABS: MICROCYTOSIS SLIGHT; TARGET CELLS SLIGHT
--- NOTE | 2017-07-13 08:36 | RAD ---
Chest x-ray single frontal view History: Ventilator. Comparison: 07/12/2017 Findings: Lines and tubes in stable position. Biapical pleural thickening with upper lobe granulomatous changes. Diffuse increased interstitial lung markings which may represent venous congestion versus edema versus infiltrate. Nodularity in the left mid lung zone laterally. Bilateral hilar prominence. Cardiomegaly. Calcification at the aortic knob. Degenerative changes in the spine and shoulders. Impression: Lines and tubes in stable position. Biapical pleural thickening with upper lobe granulomatous changes. Diffuse increased interstitial lung markings which may represent venous congestion versus edema versus infiltrate. Nodularity in the left mid lung zone laterally. Bilateral hilar prominence. Cardiomegaly. Calcification at the aortic knob. Degenerative changes in the spine and shoulders.
[2017-07-13] MEDS: levETIRAcetam 500 MG in Sodium Chloride 0.9% 100 ML IVPB SCH ×2 (10:27→21:00)
--- NOTE | 2017-07-13 11:46 | CP.CCUPN ---
"<Tigist Childress - Last Filed: 07/13/17 14:28> CCU Subjective - Physician Review Subjective (Free Text): Patient seen and examined at bedside. Extubation was attempted overnight but failed due patient agitation. Patient currently on ventilatory support. CCU Objective - Vital Signs / Intake & Output Vital Signs (Last 4 hours): Vital Signs Temp Pulse Resp BP Pulse Ox 07/13/17 11:00 63 20 159/71 H 98 07/13/17 10:00 65 18 156/63 H 96 07/13/17 09:00 60 18 137/50 L 99 07/13/17 08:00 99.4 F 58 L 18 124/45 L 97 Intake and Output (Last 8hrs): Intake & Output 07/12/17 07/13/17 07/13/17 22:59 06:59 14:59 Intake Total 362.4 422.2 421.7 Output Total 495 510 310 Balance -132.6 -87.8 111.7 Weight 202 lb Intake: IV 190 50 Intake, IV Amount 302.4 72.2 251.7 Left antecubital main 102.4 72.2 40 port left ac 2nd port 150 61.7 left forearm 50 150 Tube Feeding 60 160 60 Other 60 Output: Urine 495 510 310 Urethral (Garza) 495 510 310 - Physical Exam Head: Positive for: Atraumatic, Normocephalic Pupils: Positive for: PERRL Mouth: Positive for: Moist Mucous Membranes Neck: Positive for: Trachea Midline Respiratory/Chest: Positive for: Clear to Auscultation, Other (Intubated) Cardiovascular: Positive for: Normal S1, S2 Abdomen: Positive for: Normal Bowel Sounds Upper Extremity: Positive for: Normal Inspection Lower Extremity: Positive for: Normal Inspection Skin: Positive for: Warm Psychiatric: Positive for: Alert, Agitated - Medications Active Medications: Active Medications Generic Name Dose Route Start Last Admin Trade Name Freq PRN Reason Stop Dose Admin Acetaminophen 650 mg 07/12/17 09:46 Tylenol 650mg/20.3ml Solution Ud NG Q4H PRN Temp 100.4 or Greater. Aspirin 325 mg 07/12/17 10:00 07/13/17 09:37 Aspirin PO 325 mg DAILY [facility] Administration Aspirin 81 mg 07/13/17 10:00 Ecotrin PO DAILY [facility] Clopidogrel Bisulfate 75 mg 07/13/17 10:00 Plavix PO DAILY [facility] Heparin Sodium (Porcine) 5,000 units 07/12/17 14:00 07/13/17 05:56 Heparin SC 5,000 units Q8 [facility] Administration Levetiracetam 500 mg/ Sodium 105 mls @ 420 mls/hr 07/11/17 22:00 07/13/17 10: 27 Chloride IVPB 420 mls/hr Q12H [facility] Administration Piperacillin Sod/Tazobactam Sod 3.375 gm in 50 mls @ 100 mls/hr 07/11/17 22: 00 07/13/17 09:36 Zosyn 3.375 Gm Iv Premix IVPB 100 mls/hr Q6H [facility] Administration Protocol Propofol 1,000 mg in 100 mls @ 2.749 mls/hr 07/12/17 16:49 07/13/17 06:48 Diprivan IV 14.55 mcg/kg/min .Q24H PRN 8 mls/hr TITRATE PER MD ORDER Titration Protocol 5 MCG/KG/MIN Dexmedetomidine HCl 200 mcg/ 50 mls @ 4.58 mls/hr 07/12/17 21:50 07/13/17 10: 57 Sodium Chloride IV 0.8 mcg/kg/hr TITR PRN 18.32 mls/hr Agitation Administration Protocol 0.2 MCG/KG/HR Insulin Human Regular 0 unit 07/13/17 00:00 07/13/17 06:04 Novolin R SC 2 unit Q6H [facility] Administration Protocol Pantoprazole Sodium 40 mg 07/11/17 00:00 07/13/17 09:36 Protonix Inj IVP 40 mg DAILY [facility] Administration - Patient Studies Lab Studies: Microbiology Studies 07/11/17 19:34 Urine Culture - Final Urine,Garza No Growth (<1,000 CFU/ML) 07/10/17 20:30 Blood Culture - Preliminary Blood-Venous NO GROWTH AFTER 48 HOURS 07/10/17 20:00 Blood Culture - Preliminary Blood-Venous NO GROWTH AFTER 48 HOURS 07/10/17 Unknown MRSA Culture (Admit) - Final Naris MRSA NOT DETECTED Lab Studies 07/13/17 07/13/17 07/13/17 Range/Units 11:24 06:05 06:05 WBC 8.1 (4.8-10.8) K/uL RBC 3.45 L (4.40-5.90) Mil/uL Hgb 8.5 L (12.0-18.0) g/dL Hct 26.7 L (35.0-51.0) % MCV 77.4 L (80.0-94.0) fL MCH 24.7 L (27.0-31.0) pg MCHC 31.9 L (33.0-37.0) g/dL RDW 21.0 H (11.5-14.5) % Plt Count 124 L (130-400) K/uL MPV 9.1 (7.2-11.7) fL Neut % (Auto) 83.3 H (50.0-75.0) % Lymph % (Auto) 7.1 L (20.0-40.0) % [place] % (Auto) 5.8 (0.0-10.0) % Eos % (Auto) 3.4 (0.0-4.0) % Baso % (Auto) 0.4 (0.0-2.0) % Neut # (Auto) 6.8 (1.8-7.0) K/uL Lymph # (Auto) 0.6 L (1.0-4.3) K/uL [place] # (Auto) 0.5 (0.0-0.8) K/uL Eos # (Auto) 0.3 (0.0-0.7) K/uL Baso # (Auto) 0.0 (0.0-0.2) K/uL Neutrophils % (Manual) 88 H (50-75) % Lymphocytes % (Manual) 6 L (20-40) % Monocytes % (Manual) 4 (0-10) % Eosinophils % (Manual) 2 (0-4) % Differential Comment Platelet Estimate Slightly decreased L (NORMAL) Hypochromasia (manual) Slight Poikilocytosis (manual Slight Anisocytosis (manual) Slight Microcytosis (manual) Slight Macrocytosis (manual) Slight Target Cells Slight Puncture Site pCO2 (35-45) mm/Hg pO2 (80-100) mm/Hg HCO3 (21-28) mmol/L ABG pH (7.35-7.45) ABG Total CO2 (22-28) mmol/L ABG O2 Saturation (95-98) % ABG Base Excess (-2.0-3.0) mmol/L ABG Hemoglobin (11.7-17.4) g/dL ABG Carboxyhemoglobin (0.5-1.5) % POC ABG HHb (Measured) (0.0-5.0) % ABG Methemoglobin (0.0-3.0) % Ming Test A-a O2 Difference mm/Hg Respiratory Index Hgb O2 Saturation (95.0-98.0) % Vent Mode Mechanical Rate FiO2 % Tidal Volume PEEP Sodium 140 (132-148) mmol/L Potassium 4.3 (3.6-5.2) mmol/L Chloride 107 (98-107) mmol/L Carbon Dioxide 23 (22-30) mmol/L Anion Gap 15 (10-20) BUN 10 (9-20) mg/dL Creatinine 0.8 (0.8-1.5) mg/dL Est GFR ( Amer) > 60 Est GFR (Non-Af Amer) > 60 POC Glucose (mg/dL) 153 H (65-110) mg/dL Random Glucose 147 H (75-110) mg/dL Calcium 8.3 L (8.6-10.4) mg/dl Phosphorus 3.2 (2.5-4.5) mg/dL Magnesium 1.7 (1.6-2.3) mg/dL Total Bilirubin 0.6 (0.2-1.3) mg/dL AST 36 (17-59) U/L ALT 16 L (21-72) U/L Alkaline Phosphatase 53 (38-126) U/L Total Protein 6.1 L (6.3-8.3) g/dL Albumin 2.9 L (3.5-5.0) g/dL Globulin 3.2 (2.2-3.9) gm/dL Albumin/Globulin Ratio 0.9 L (1.0-2.1) 07/13/17 07/13/17 07/12/17 Range/Units 06:00 05:21 23:43 WBC (4.8-10.8) K/uL RBC (4.40-5.90) Mil/uL Hgb (12.0-18.0) g/dL Hct (35.0-51.0) % MCV (80.0-94.0) fL MCH (27.0-31.0) pg MCHC (33.0-37.0) g/dL RDW (11.5-14.5) % Plt Count (130-400) K/uL MPV (7.2-11.7) fL Neut % (Auto) (50.0-75.0) % Lymph % (Auto) (20.0-40.0) % [place] % (Auto) (0.0-10.0) % Eos % (Auto) (0.0-4.0) % Baso % (Auto) (0.0-2.0) % Neut # (Auto) (1.8-7.0) K/uL Lymph # (Auto) (1.0-4.3) K/uL [place] # (Auto) (0.0-0.8) K/uL Eos # (Auto) (0.0-0.7) K/uL Baso # (Auto) (0.0-0.2) K/uL Neutrophils % (Manual) (50-75) % Lymphocytes % (Manual) (20-40) % Monocytes % (Manual) (0-10) % Eosinophils % (Manual) (0-4) % Differential Comment Platelet Estimate (NORMAL) Hypochromasia (manual) Poikilocytosis (manual Anisocytosis (manual) Microcytosis (manual) Macrocytosis (manual) Target Cells Puncture Site Rb pCO2 36 (35-45) mm/Hg pO2 85 (80-100) mm/Hg HCO3 25.2 (21-28) mmol/L ABG pH 7.44 (7.35-7.45) ABG Total CO2 25.6 (22-28) mmol/L ABG O2 Saturation 98.2 H (95-98) % ABG Base Excess 0.4 (-2.0-3.0) mmol/L ABG Hemoglobin 8.8 L (11.7-17.4) g/dL ABG Carboxyhemoglobin 1.7 H (0.5-1.5) % POC ABG HHb (Measured) 1.8 (0.0-5.0) % ABG Methemoglobin 0.4 (0.0-3.0) % Ming Test Na A-a O2 Difference 84.0 mm/Hg Respiratory Index 1.0 Hgb O2 Saturation 96.1 (95.0-98.0) % Vent Mode Prvc Mechanical Rate 18 FiO2 30.0 % Tidal Volume 450 PEEP 5 Sodium (132-148) mmol/L Potassium (3.6-5.2) mmol/L Chloride (98-107) mmol/L Carbon Dioxide (22-30) mmol/L Anion Gap (10-20) BUN (9-20) mg/dL Creatinine (0.8-1.5) mg/dL Est GFR ( Amer) Est GFR (Non-Af Amer) POC Glucose (mg/dL) 157 H 132 H (65-110) mg/dL Random Glucose (75-110) mg/dL Calcium (8.6-10.4) mg/dl Phosphorus (2.5-4.5) mg/dL Magnesium (1.6-2.3) mg/dL Total Bilirubin (0.2-1.3) mg/dL AST (17-59) U/L ALT (21-72) U/L Alkaline Phosphatase (38-126) U/L Total Protein (6.3-8.3) g/dL Albumin (3.5-5.0) g/dL Globulin (2.2-3.9) gm/dL Albumin/Globulin Ratio (1.0-2.1) 07/12/17 07/12/17 07/12/17 Range/Units 17:39 16:20 13:46 WBC 7.5 (4.8-10.8) K/uL RBC 3.32 L (4.40-5.90) Mil/uL Hgb 8.0 L (12.0-18.0) g/dL Hct 25.5 L (35.0-51.0) % MCV 76.6 L (80.0-94.0) fL MCH 24.2 L (27.0-31.0) pg MCHC 31.6 L (33.0-37.0) g/dL RDW 21.1 H (11.5-14.5) % Plt Count 128 L (130-400) K/uL MPV 8.7 (7.2-11.7) fL Neut % (Auto) (50.0-75.0) % Lymph % (Auto) (20.0-40.0) % [place] % (Auto) (0.0-10.0) % Eos % (Auto) (0.0-4.0) % Baso % (Auto) (0.0-2.0) % Neut # (Auto) (1.8-7.0) K/uL Lymph # (Auto) (1.0-4.3) K/uL [place] # (Auto) (0.0-0.8) K/uL Eos # (Auto) (0.0-0.7) K/uL Baso # (Auto) (0.0-0.2) K/uL Neutrophils % (Manual) (50-75) % Lymphocytes % (Manual) (20-40) % Monocytes % (Manual) (0-10) % Eosinophils % (Manual) (0-4) % Differential Comment Platelet Estimate (NORMAL) Hypochromasia (manual) Poikilocytosis (manual Anisocytosis (manual) Microcytosis (manual) Macrocytosis (manual) Target Cells Puncture Site Lra pCO2 38 (35-45) mm/Hg pO2 170 H (80-100) mm/Hg HCO3 24.0 (21-28) mmol/L ABG pH 7.40 (7.35-7.45) ABG Total CO2 24.7 (22-28) mmol/L ABG O2 Saturation 99.1 H (95-98) % ABG Base Excess -1.2 (-2.0-3.0) mmol/L ABG Hemoglobin 7.6 L (11.7-17.4) g/dL ABG Carboxyhemoglobin 1.5 (0.5-1.5) % POC ABG HHb (Measured) 0.9 (0.0-5.0) % ABG Methemoglobin 1.2 (0.0-3.0) % Ming Test Pos A-a O2 Difference 139.0 mm/Hg Respiratory Index 0.8 Hgb O2 Saturation 96.4 (95.0-98.0) % Vent Mode Prvc Mechanical Rate 18 FiO2 50.0 % Tidal Volume 450 PEEP 5 Sodium (132-148) mmol/L Potassium (3.6-5.2) mmol/L Chloride (98-107) mmol/L Carbon Dioxide (22-30) mmol/L Anion Gap (10-20) BUN (9-20) mg/dL Creatinine (0.8-1.5) mg/dL Est GFR ( Amer) Est GFR (Non-Af Amer) POC Glucose (mg/dL) 135 H (65-110) mg/dL Random Glucose (75-110) mg/dL Calcium (8.6-10.4) mg/dl Phosphorus (2.5-4.5) mg/dL Magnesium (1.6-2.3) mg/dL Total Bilirubin (0.2-1.3) mg/dL AST (17-59) U/L ALT (21-72) U/L Alkaline Phosphatase (38-126) U/L Total Protein (6.3-8.3) g/dL Albumin (3.5-5.0) g/dL Globulin (2.2-3.9) gm/dL Albumin/Globulin Ratio (1.0-2.1) 07/12/17 07/10/17 Range/Units 11:24 19:20 WBC (4.8-10.8) K/uL RBC (4.40-5.90) Mil/uL Hgb (12.0-18.0) g/dL Hct (35.0-51.0) % MCV (80.0-94.0) fL MCH (27.0-31.0) pg MCHC (33.0-37.0) g/dL RDW (11.5-14.5) % Plt Count (130-400) K/uL MPV (7.2-11.7) fL Neut % (Auto) (50.0-75.0) % Lymph % (Auto) (20.0-40.0) % [place] % (Auto) (0.0-10.0) % Eos % (Auto) (0.0-4.0) % Baso % (Auto) (0.0-2.0) % Neut # (Auto) (1.8-7.0) K/uL Lymph # (Auto) (1.0-4.3) K/uL [place] # (Auto) (0.0-0.8) K/uL Eos # (Auto) (0.0-0.7) K/uL Baso # (Auto) (0.0-0.2) K/uL Neutrophils % (Manual) (50-75) % Lymphocytes % (Manual) (20-40) % Monocytes % (Manual) (0-10) % Eosinophils % (Manual) (0-4) % Differential Comment Platelet Estimate (NORMAL) Hypochromasia (manual) Poikilocytosis (manual Anisocytosis (manual) Microcytosis (manual) Macrocytosis (manual) Target Cells Puncture Site pCO2 (35-45) mm/Hg pO2 (80-100) mm/Hg HCO3 (21-28) mmol/L ABG pH (7.35-7.45) ABG Total CO2 (22-28) mmol/L ABG O2 Saturation (95-98) % ABG Base Excess (-2.0-3.0) mmol/L ABG Hemoglobin (11.7-17.4) g/dL ABG Carboxyhemoglobin (0.5-1.5) % POC ABG HHb (Measured) (0.0-5.0) % ABG Methemoglobin (0.0-3.0) % Ming Test A-a O2 Difference mm/Hg Respiratory Index Hgb O2 Saturation (95.0-98.0) % Vent Mode Mechanical Rate FiO2 % Tidal Volume PEEP Sodium (132-148) mmol/L Potassium (3.6-5.2) mmol/L Chloride (98-107) mmol/L Carbon Dioxide (22-30) mmol/L Anion Gap (10-20) BUN (9-20) mg/dL Creatinine (0.8-1.5) mg/dL Est GFR ( Amer) Est GFR (Non-Af Amer) POC Glucose (mg/dL) 159 H 220 H (65-110) mg/dL Random Glucose (75-110) mg/dL Calcium (8.6-10.4) mg/dl Phosphorus (2.5-4.5) mg/dL Magnesium (1.6-2.3) mg/dL Total Bilirubin (0.2-1.3) mg/dL AST (17-59) U/L ALT (21-72) U/L Alkaline Phosphatase (38-126) U/L Total Protein (6.3-8.3) g/dL Albumin (3.5-5.0) g/dL Globulin (2.2-3.9) gm/dL Albumin/Globulin Ratio (1.0-2.1) Laboratory Results - last 24 hr 05/07/2307/12/17 07/12/17 19:20 11:24 13:46 WBC 7.5 RBC 3.32 L Hgb 8.0 L Hct 25.5 L MCV 76.6 L MCH 24.2 L MCHC 31.6 L RDW 21.1 H Plt Count 128 L MPV 8.7 Neut % (Auto) Lymph % (Auto) [place] % (Auto) Eos % (Auto) Baso % (Auto) Neut # (Auto) Lymph # (Auto) [place] # (Auto) Eos # (Auto) Baso # (Auto) Neutrophils % (Manual) Lymphocytes % (Manual) Monocytes % (Manual) Eosinophils % (Manual) Differential Comment Platelet Estimate Hypochromasia (manual) Poikilocytosis (manual Anisocytosis (manual) Microcytosis (manual) Macrocytosis (manual) Target Cells Puncture Site pCO2 pO2 HCO3 ABG pH ABG Total CO2 ABG O2 Saturation ABG Base Excess ABG Hemoglobin ABG Carboxyhemoglobin POC ABG HHb (Measured) ABG Methemoglobin Ming Test A-a O2 Difference Respiratory Index Hgb O2 Saturation Vent Mode Mechanical Rate FiO2 Tidal Volume PEEP Sodium Potassium Chloride Carbon Dioxide Anion Gap BUN Creatinine Est GFR ( Amer) Est GFR (Non-Af Amer) POC Glucose (mg/dL) 220 H 159 H Random Glucose Calcium Phosphorus Magnesium Total Bilirubin AST ALT Alkaline Phosphatase Total Protein Albumin Globulin Albumin/Globulin Ratio 07/12/17 07/12/17 07/12/17 16:20 17:39 23:43 WBC RBC Hgb Hct MCV MCH MCHC RDW Plt Count MPV Neut % (Auto) Lymph % (Auto) [place] % (Auto) Eos % (Auto) Baso % (Auto) Neut # (Auto) Lymph # (Auto) [place] # (Auto) Eos # (Auto) Baso # (Auto) Neutrophils % (Manual) Lymphocytes % (Manual) Monocytes % (Manual) Eosinophils % (Manual) Differential Comment Platelet Estimate Hypochromasia (manual) Poikilocytosis (manual Anisocytosis (manual) Microcytosis (manual) Macrocytosis (manual) Target Cells Puncture Site Lra pCO2 38 pO2 170 H HCO3 24.0 ABG pH 7.40 ABG Total CO2 24.7 ABG O2 Saturation 99.1 H ABG Base Excess -1.2 ABG Hemoglobin 7.6 L ABG Carboxyhemoglobin 1.5 POC ABG HHb (Measured) 0.9 ABG Methemoglobin 1.2 Ming Test Pos A-a O2 Difference 139.0 Respiratory Index 0.8 Hgb O2 Saturation 96.4 Vent Mode Prvc Mechanical Rate 18 FiO2 50.0 Tidal Volume 450 PEEP 5 Sodium Potassium Chloride Carbon Dioxide Anion Gap BUN Creatinine Est GFR ( Amer) Est GFR (Non-Af Amer) POC Glucose (mg/dL) 135 H 132 H Random Glucose Calcium Phosphorus Magnesium Total Bilirubin AST ALT Alkaline Phosphatase Total Protein Albumin Globulin Albumin/Globulin Ratio 07/13/17 07/13/17 07/13/17 05:21 06:00 06:05 WBC 8.1 RBC 3.45 L Hgb 8.5 L Hct 26.7 L MCV 77.4 L MCH 24.7 L MCHC 31.9 L RDW 21.0 H Plt Count 124 L MPV 9.1 Neut % (Auto) 83.3 H Lymph % (Auto) 7.1 L [place] % (Auto) 5.8 Eos % (Auto) 3.4 Baso % (Auto) 0.4 Neut # (Auto) 6.8 Lymph # (Auto) 0.6 L [place] # (Auto) 0.5 Eos # (Auto) 0.3 Baso # (Auto) 0.0 Neutrophils % (Manual) 88 H Lymphocytes % (Manual) 6 L Monocytes % (Manual) 4 Eosinophils % (Manual) 2 Differential Comment Platelet Estimate Slightly decreased L Hypochromasia (manual) Slight Poikilocytosis (manual Slight Anisocytosis (manual) Slight Microcytosis (manual) Slight Macrocytosis (manual) Slight Target Cells Slight Puncture Site Rb pCO2 36 pO2 85 HCO3 25.2 ABG pH 7.44 ABG Total CO2 25.6 ABG O2 Saturation 98.2 H ABG Base Excess 0.4 ABG Hemoglobin 8.8 L ABG Carboxyhemoglobin 1.7 H POC ABG HHb (Measured) 1.8 ABG Methemoglobin 0.4 Ming Test Na A-a O2 Difference 84.0 Respiratory Index 1.0 Hgb O2 Saturation 96.1 Vent Mode Prvc Mechanical Rate 18 FiO2 30.0 Tidal Volume 450 PEEP 5 Sodium Potassium Chloride Carbon Dioxide Anion Gap BUN Creatinine Est GFR ( Amer) Est GFR (Non-Af Amer) POC Glucose (mg/dL) 157 H Random Glucose Calcium Phosphorus Magnesium Total Bilirubin AST ALT Alkaline Phosphatase Total Protein Albumin Globulin Albumin/Globulin Ratio 07/13/17 07/13/17 06:05 11:24 WBC RBC Hgb Hct MCV MCH MCHC RDW Plt Count MPV Neut % (Auto) Lymph % (Auto) [place] % (Auto) Eos % (Auto) Baso % (Auto) Neut # (Auto) Lymph # (Auto) [place] # (Auto) Eos # (Auto) Baso # (Auto) Neutrophils % (Manual) Lymphocytes % (Manual) Monocytes % (Manual) Eosinophils % (Manual) Differential Comment Platelet Estimate Hypochromasia (manual) Poikilocytosis (manual Anisocytosis (manual) Microcytosis (manual) Macrocytosis (manual) Target Cells Puncture Site pCO2 pO2 HCO3 ABG pH ABG Total CO2 ABG O2 Saturation ABG Base Excess ABG Hemoglobin ABG Carboxyhemoglobin POC ABG HHb (Measured) ABG Methemoglobin Ming Test A-a O2 Difference Respiratory Index Hgb O2 Saturation Vent Mode Mechanical Rate FiO2 Tidal Volume PEEP Sodium 140 Potassium 4.3 Chloride 107 Carbon Dioxide 23 Anion Gap 15 BUN 10 Creatinine 0.8 Est GFR ( Amer) > 60 Est GFR (Non-Af Amer) > 60 POC Glucose (mg/dL) 153 H Random Glucose 147 H Calcium 8.3 L Phosphorus 3.2 Magnesium 1.7 Total Bilirubin 0.6 AST 36 ALT 16 L Alkaline Phosphatase 53 Total Protein 6.1 L Albumin 2.9 L Globulin 3.2 Albumin/Globulin Ratio 0.9 L EKG/Cardiology Studies: Cardiology / EKG Studies 07/12/17 23:15 ELECTROCARDIOGRAM DAILY Comment: Mode Of Transportation: PORTABLE Reason For Exam: f/u 07/13/17 23:15 ELECTROCARDIOGRAM DAILY Comment: Mode Of Transportation: PORTABLE Reason For Exam: f/u Fingerstick Blood Sugar Results: 157 Review of Systems - Review of Systems Systems not reviewed;Unavailable: Intubated Assessment/Plan - Assessment and Plan (Free Text) Assessment: Patient 81 year old male with PMHx of htn, dm, prior MO and CABG admitted last night for confusion, decreased responsiveness and agonal breathing after eating. Pt intubated in the field. Had seizure en route to ED. While in ED had cynthia then brief arrest. Required 1 epi /cpr. Plan: Neuro: GCS: 10T Sedation: Fentanyl 2mcg/kg/hr | Propofol (Titrate PRN) EEG (07/12/17): Moderate encephalopathy no seizures Keppra 500 Q12 per Neuro Neurology Consulted, Recs Appreciated Cardio A: HTN, Diabetes, Prior MO, CABG Patient has been normotensive. Carotid Duplex Ordered. ECHO - Moderately calcified aortic valve, Grade I - abnormal relaxation patter, EF > 70% Pulm A: Res. failure Intubated: 50% Fi02, 5 PEEP, 18 RR, 450ml TV CXR (07/12): No acute infiltrate 07/12/17 4:40 ABG 7.47/31/150/24.4 07/13/17 5:21 ABG 7.44/36/85/25.2 Will attempt extubation Today. GI Protonix 40 IVP Daily Endo A: DM II POC Glucose Q6H HgBA1C 7.2 Regular ISS Hold Home Meds Nephro/electrolytes Monitor Electrolytes ID Febrile in AM, No Leukocytosis Zosyn 3.375 Q6H MRSA not Detected in Nares Blood Cultures - NEGATIVE Urine Cultures - NEGATIVE Heme/Onc A: Microcytic Anemia Stool Occult Blood - PENDING Consider Anemia Workup - Iron, TIBC, Ferritin, B12, Folate, haptoglobin, Retic Count MSK A: Hx of Back Surgery No Active Issues at this time. Prophylaxis Heparin Protonix IV Patient discussed with ICU Attending Tigist Childress, PGY-1 <Van Hoang S - Last Filed: 07/13/17 17:46> CCU Objective - Vital Signs / Intake & Output Vital Signs (Last 4 hours): Vital Signs Temp Pulse Resp BP Pulse Ox 07/13/17 17:00 63 19 148/63 99 07/13/17 16:00 98.7 F 60 20 144/52 L 99 07/13/17 15:00 61 23 149/57 L 98 07/13/17 14:00 56 L 20 146/50 L 98 Intake and Output (Last 8hrs): Intake & Output 07/13/17 07/13/17 07/13/17 06:59 14:59 22:59 Intake Total 422.2 638.1 50 Output Total 510 500 50 Balance -87.8 138.1 0 Weight 202 lb Intake: IV 190 154 Intake, IV Amount 72.2 284.1 50 Left antecubital main 72.2 46 50 port left ac 2nd port 88.1 left forearm 150 Tube Feeding 160 140 Other 60 Output: Urine 510 500 50 Urethral (Garza) 510 500 50 Urine, Voided 0 - Medications Active Medications: Active Medications Generic Name Dose Route Start Last Admin Trade Name Freq PRN Reason Stop Dose Admin Acetaminophen 650 mg 07/12/17 09:46 Tylenol 650mg/20.3ml Solution Ud NG Q4H PRN Temp 100.4 or Greater. Aspirin 325 mg 07/12/17 10:00 07/13/17 09:37 Aspirin PO 325 mg DAILY [facility] Administration Aspirin 81 mg 07/13/17 10:00 Ecotrin PO DAILY [facility] Clopidogrel Bisulfate 75 mg 07/13/17 10:00 Plavix PO DAILY [facility] Heparin Sodium (Porcine) 5,000 units 07/12/17 14:00 07/13/17 14:10 Heparin SC 5,000 units Q8 [facility] Administration Levetiracetam 500 mg/ Sodium 105 mls @ 420 mls/hr 07/11/17 22:00 07/13/17 10: 27 Chloride IVPB 420 mls/hr Q12H [facility] Administration Piperacillin Sod/Tazobactam Sod 3.375 gm in 50 mls @ 100 mls/hr 07/11/17 22: 00 07/13/17 15:36 Zosyn 3.375 Gm Iv Premix IVPB 100 mls/hr Q6H [facility] Administration Protocol Insulin Human Regular 0 unit 07/13/17 00:00 07/13/17 17:34 Novolin R SC Not Given Q6H [facility] Protocol Pantoprazole Sodium 40 mg 07/11/17 00:00 07/13/17 09:36 Protonix Inj IVP 40 mg DAILY [facility] Administration - Patient Studies Lab Studies: Microbiology Studies 07/11/17 19:34 Urine Culture - Final Urine,Garza No Growth (<1,000 CFU/ML) 07/10/17 20:30 Blood Culture - Preliminary Blood-Venous NO GROWTH AFTER 48 HOURS 07/10/17 20:00 Blood Culture - Preliminary Blood-Venous NO GROWTH AFTER 48 HOURS Lab Studies 07/13/17 07/13/17 07/13/17 Range/Units 17:30 11:24 06:05 WBC (4.8-10.8) K/uL RBC (4.40-5.90) Mil/uL Hgb (12.0-18.0) g/dL Hct (35.0-51.0) % MCV (80.0-94.0) fL MCH (27.0-31.0) pg MCHC (33.0-37.0) g/dL RDW (11.5-14.5) % Plt Count (130-400) K/uL MPV (7.2-11.7) fL Neut % (Auto) (50.0-75.0) % Lymph % (Auto) (20.0-40.0) % [place] % (Auto) (0.0-10.0) % Eos % (Auto) (0.0-4.0) % Baso % (Auto) (0.0-2.0) % Neut # (Auto) (1.8-7.0) K/uL Lymph # (Auto) (1.0-4.3) K/uL [place] # (Auto) (0.0-0.8) K/uL Eos # (Auto) (0.0-0.7) K/uL Baso # (Auto) (0.0-0.2) K/uL Neutrophils % (Manual) (50-75) % Lymphocytes % (Manual) (20-40) % Monocytes % (Manual) (0-10) % Eosinophils % (Manual) (0-4) % Platelet Estimate (NORMAL) Hypochromasia (manual) Poikilocytosis (manual Anisocytosis (manual) Microcytosis (manual) Macrocytosis (manual) Target Cells Puncture Site pCO2 (35-45) mm/Hg pO2 (80-100) mm/Hg HCO3 (21-28) mmol/L ABG pH (7.35-7.45) ABG Total CO2 (22-28) mmol/L ABG O2 Saturation (95-98) % ABG Base Excess (-2.0-3.0) mmol/L ABG Hemoglobin (11.7-17.4) g/dL ABG Carboxyhemoglobin (0.5-1.5) % POC ABG HHb (Measured) (0.0-5.0) % ABG Methemoglobin (0.0-3.0) % Ming Test A-a O2 Difference mm/Hg Respiratory Index Hgb O2 Saturation (95.0-98.0) % Vent Mode Mechanical Rate FiO2 % Tidal Volume PEEP Sodium 140 (132-148) mmol/L Potassium 4.3 (3.6-5.2) mmol/L Chloride 107 (98-107) mmol/L Carbon Dioxide 23 (22-30) mmol/L Anion Gap 15 (10-20) BUN 10 (9-20) mg/dL Creatinine 0.8 (0.8-1.5) mg/dL Est GFR ( Amer) > 60 Est GFR (Non-Af Amer) > 60 POC Glucose (mg/dL) 130 H 153 H (65-110) mg/dL Random Glucose 147 H (75-110) mg/dL Calcium 8.3 L (8.6-10.4) mg/dl Phosphorus 3.2 (2.5-4.5) mg/dL Magnesium 1.7 (1.6-2.3) mg/dL Total Bilirubin 0.6 (0.2-1.3) mg/dL AST 36 (17-59) U/L ALT 16 L (21-72) U/L Alkaline Phosphatase 53 (38-126) U/L Total Protein 6.1 L (6.3-8.3) g/dL Albumin 2.9 L (3.5-5.0) g/dL Globulin 3.2 (2.2-3.9) gm/dL Albumin/Globulin Ratio 0.9 L (1.0-2.1) 07/13/1718 07/13/17 Range/Units 06:05 06:00 05:21 WBC 8.1 (4.8-10.8) K/uL RBC 3.45 L (4.40-5.90) Mil/uL Hgb 8.5 L (12.0-18.0) g/dL Hct 26.7 L (35.0-51.0) % MCV 77.4 L (80.0-94.0) fL MCH 24.7 L (27.0-31.0) pg MCHC 31.9 L (33.0-37.0) g/dL RDW 21.0 H (11.5-14.5) % Plt Count 124 L (130-400) K/uL MPV 9.1 (7.2-11.7) fL Neut % (Auto) 83.3 H (50.0-75.0) % Lymph % (Auto) 7.1 L (20.0-40.0) % [place] % (Auto) 5.8 (0.0-10.0) % Eos % (Auto) 3.4 (0.0-4.0) % Baso % (Auto) 0.4 (0.0-2.0) % Neut # (Auto) 6.8 (1.8-7.0) K/uL Lymph # (Auto) 0.6 L (1.0-4.3) K/uL [place] # (Auto) 0.5 (0.0-0.8) K/uL Eos # (Auto) 0.3 (0.0-0.7) K/uL Baso # (Auto) 0.0 (0.0-0.2) K/uL Neutrophils % (Manual) 88 H (50-75) % Lymphocytes % (Manual) 6 L (20-40) % Monocytes % (Manual) 4 (0-10) % Eosinophils % (Manual) 2 (0-4) % Platelet Estimate Slightly decreased L (NORMAL) Hypochromasia (manual) Slight Poikilocytosis (manual Slight Anisocytosis (manual) Slight Microcytosis (manual) Slight Macrocytosis (manual) Slight Target Cells Slight Puncture Site Rb pCO2 36 (35-45) mm/Hg pO2 85 (80-100) mm/Hg HCO3 25.2 (21-28) mmol/L ABG pH 7.44 (7.35-7.45) ABG Total CO2 25.6 (22-28) mmol/L ABG O2 Saturation 98.2 H (95-98) % ABG Base Excess 0.4 (-2.0-3.0) mmol/L ABG Hemoglobin 8.8 L (11.7-17.4) g/dL ABG Carboxyhemoglobin 1.7 H (0.5-1.5) % POC ABG HHb (Measured) 1.8 (0.0-5.0) % ABG Methemoglobin 0.4 (0.0-3.0) % Ming Test Na A-a O2 Difference 84.0 mm/Hg Respiratory Index 1.0 Hgb O2 Saturation 96.1 (95.0-98.0) % Vent Mode Prvc Mechanical Rate 18 FiO2 30.0 % Tidal Volume 450 PEEP 5 Sodium (132-148) mmol/L Potassium (3.6-5.2) mmol/L Chloride (98-107) mmol/L Carbon Dioxide (22-30) mmol/L Anion Gap (10-20) BUN (9-20) mg/dL Creatinine (0.8-1.5) mg/dL Est GFR ( Amer) Est GFR (Non-Af Amer) POC Glucose (mg/dL) 157 H (65-110) mg/dL Random Glucose (75-110) mg/dL Calcium (8.6-10.4) mg/dl Phosphorus (2.5-4.5) mg/dL Magnesium (1.6-2.3) mg/dL Total Bilirubin (0.2-1.3) mg/dL AST (17-59) U/L ALT (21-72) U/L Alkaline Phosphatase (38-126) U/L Total Protein (6.3-8.3) g/dL Albumin (3.5-5.0) g/dL Globulin (2.2-3.9) gm/dL Albumin/Globulin Ratio (1.0-2.1) 07/12/17 07/10/17 Range/Units 23:43 19:20 WBC (4.8-10.8) K/uL RBC (4.40-5.90) Mil/uL Hgb (12.0-18.0) g/dL Hct (35.0-51.0) % MCV (80.0-94.0) fL MCH (27.0-31.0) pg MCHC (33.0-37.0) g/dL RDW (11.5-14.5) % Plt Count (130-400) K/uL MPV (7.2-11.7) fL Neut % (Auto) (50.0-75.0) % Lymph % (Auto) (20.0-40.0) % [place] % (Auto) (0.0-10.0) % Eos % (Auto) (0.0-4.0) % Baso % (Auto) (0.0-2.0) % Neut # (Auto) (1.8-7.0) K/uL Lymph # (Auto) (1.0-4.3) K/uL [place] # (Auto) (0.0-0.8) K/uL Eos # (Auto) (0.0-0.7) K/uL Baso # (Auto) (0.0-0.2) K/uL Neutrophils % (Manual) (50-75) % Lymphocytes % (Manual) (20-40) % Monocytes % (Manual) (0-10) % Eosinophils % (Manual) (0-4) % Platelet Estimate (NORMAL) Hypochromasia (manual) Poikilocytosis (manual Anisocytosis (manual) Microcytosis (manual) Macrocytosis (manual) Target Cells Puncture Site pCO2 (35-45) mm/Hg pO2 (80-100) mm/Hg HCO3 (21-28) mmol/L ABG pH (7.35-7.45) ABG Total CO2 (22-28) mmol/L ABG O2 Saturation (95-98) % ABG Base Excess (-2.0-3.0) mmol/L ABG Hemoglobin (11.7-17.4) g/dL ABG Carboxyhemoglobin (0.5-1.5) % POC ABG HHb (Measured) (0.0-5.0) % ABG Methemoglobin (0.0-3.0) % Ming Test A-a O2 Difference mm/Hg Respiratory Index Hgb O2 Saturation (95.0-98.0) % Vent Mode Mechanical Rate FiO2 % Tidal Volume PEEP Sodium (132-148) mmol/L Potassium (3.6-5.2) mmol/L Chloride (98-107) mmol/L Carbon Dioxide (22-30) mmol/L Anion Gap (10-20) BUN (9-20) mg/dL Creatinine (0.8-1.5) mg/dL Est GFR ( Amer) Est GFR (Non-Af Amer) POC Glucose (mg/dL) 132 H 220 H (65-110) mg/dL Random Glucose (75-110) mg/dL Calcium (8.6-10.4) mg/dl Phosphorus (2.5-4.5) mg/dL Magnesium (1.6-2.3) mg/dL Total Bilirubin (0.2-1.3) mg/dL AST (17-59) U/L ALT (21-72) U/L Alkaline Phosphatase (38-126) U/L Total Protein (6.3-8.3) g/dL Albumin (3.5-5.0) g/dL Globulin (2.2-3.9) gm/dL Albumin/Globulin Ratio (1.0-2.1) Laboratory Results - last 24 hr 07/10/17 07/12/17 07/13/17 19:20 23:43 05:21 WBC RBC Hgb Hct MCV MCH MCHC RDW Plt Count MPV Neut % (Auto) Lymph % (Auto) [place] % (Auto) Eos % (Auto) Baso % (Auto) Neut # (Auto) Lymph # (Auto) [place] # (Auto) Eos # (Auto) Baso # (Auto) Neutrophils % (Manual) Lymphocytes % (Manual) Monocytes % (Manual) Eosinophils % (Manual) Platelet Estimate Hypochromasia (manual) Poikilocytosis (manual Anisocytosis (manual) Microcytosis (manual) Macrocytosis (manual) Target Cells Puncture Site Rb pCO2 36 pO2 85 HCO3 25.2 ABG pH 7.44 ABG Total CO2 25.6 ABG O2 Saturation 98.2 H ABG Base Excess 0.4 ABG Hemoglobin 8.8 L ABG Carboxyhemoglobin 1.7 H POC ABG HHb (Measured) 1.8 ABG Methemoglobin 0.4 Ming Test Na A-a O2 Difference 84.0 Respiratory Index 1.0 Hgb O2 Saturation 96.1 Vent Mode Prvc Mechanical Rate 18 FiO2 30.0 Tidal Volume 450 PEEP 5 Sodium Potassium Chloride Carbon Dioxide Anion Gap BUN Creatinine Est GFR ( Amer) Est GFR (Non-Af Amer) POC Glucose (mg/dL) 220 H 132 H Random Glucose Calcium Phosphorus Magnesium Total Bilirubin AST ALT Alkaline Phosphatase Total Protein Albumin Globulin Albumin/Globulin Ratio 07/13/17 07/13/17 07/13/17 06:00 06:05 06:05 WBC 8.1 RBC 3.45 L Hgb 8.5 L Hct 26.7 L MCV 77.4 L MCH 24.7 L MCHC 31.9 L RDW 21.0 H Plt Count 124 L MPV 9.1 Neut % (Auto) 83.3 H Lymph % (Auto) 7.1 L [place] % (Auto) 5.8 Eos % (Auto) 3.4 Baso % (Auto) 0.4 Neut # (Auto) 6.8 Lymph # (Auto) 0.6 L [place] # (Auto) 0.5 Eos # (Auto) 0.3 Baso # (Auto) 0.0 Neutrophils % (Manual) 88 H Lymphocytes % (Manual) 6 L Monocytes % (Manual) 4 Eosinophils % (Manual) 2 Platelet Estimate Slightly decreased L Hypochromasia (manual) Slight Poikilocytosis (manual Slight Anisocytosis (manual) Slight Microcytosis (manual) Slight Macrocytosis (manual) Slight Target Cells Slight Puncture Site pCO2 pO2 HCO3 ABG pH ABG Total CO2 ABG O2 Saturation ABG Base Excess ABG Hemoglobin ABG Carboxyhemoglobin POC ABG HHb (Measured) ABG Methemoglobin Ming Test A-a O2 Difference Respiratory Index Hgb O2 Saturation Vent Mode Mechanical Rate FiO2 Tidal Volume PEEP Sodium 140 Potassium 4.3 Chloride 107 Carbon Dioxide 23 Anion Gap 15 BUN 10 Creatinine 0.8 Est GFR ( Amer) > 60 Est GFR (Non-Af Amer) > 60 POC Glucose (mg/dL) 157 H Random Glucose 147 H Calcium 8.3 L Phosphorus 3.2 Magnesium 1.7 Total Bilirubin 0.6 AST 36 ALT 16 L Alkaline Phosphatase 53 Total Protein 6.1 L Albumin 2.9 L Globulin 3.2 Albumin/Globulin Ratio 0.9 L 07/13/17 07/13/17 11:24 17:30 WBC RBC Hgb Hct MCV MCH MCHC RDW Plt Count MPV Neut % (Auto) Lymph % (Auto) [place] % (Auto) Eos % (Auto) Baso % (Auto) Neut # (Auto) Lymph # (Auto) [place] # (Auto) Eos # (Auto) Baso # (Auto) Neutrophils % (Manual) Lymphocytes % (Manual) Monocytes % (Manual) Eosinophils % (Manual) Platelet Estimate Hypochromasia (manual) Poikilocytosis (manual Anisocytosis (manual) Microcytosis (manual) Macrocytosis (manual) Target Cells Puncture Site pCO2 pO2 HCO3 ABG pH ABG Total CO2 ABG O2 Saturation ABG Base Excess ABG Hemoglobin ABG Carboxyhemoglobin POC ABG HHb (Measured) ABG Methemoglobin Ming Test A-a O2 Difference Respiratory Index Hgb O2 Saturation Vent Mode Mechanical Rate FiO2 Tidal Volume PEEP Sodium Potassium Chloride Carbon Dioxide Anion Gap BUN Creatinine Est GFR ( Amer) Est GFR (Non-Af Amer) POC Glucose (mg/dL) 153 H 130 H Random Glucose Calcium Phosphorus Magnesium Total Bilirubin AST ALT Alkaline Phosphatase Total Protein Albumin Globulin Albumin/Globulin Ratio EKG/Cardiology Studies: Cardiology / EKG Studies 07/12/17 23:15 ELECTROCARDIOGRAM DAILY Comment: Mode Of Transportation: PORTABLE Reason For Exam: f/u 07/13/17 23:15 ELECTROCARDIOGRAM DAILY Comment: Mode Of Transportation: PORTABLE Reason For Exam: f/u Attending/Attestation - Attestation I have personally seen and examined this patient.: Yes I have fully participated in the care of the patient.: Yes I have reviewed all pertinent clinical information: Yes Notes (Text): 07/13/17 17:45 patient seen and examined in the intensive care unit. Patient extubated after weaning trial Patient is awake and responsive Swallowing evaluation Continue present treatment for now"
--- NOTE | 2017-07-13 12:18 | CARD ---
APPROVED REPORT EKG Measurement Heart [id number] <Conclusion> Normal sinus rhythm Right bundle branch block Left anterior fascicular block Bifascicular block Abnormal ECG
[2017-07-14] MEDS: Piperacill/Tazo 3.375gm in Dex 3.375 GM/50 ML BAG IVPB SCH ×4 (04:30→22:10)
[2017-07-14] MEDS: (Novolin R) Insulin Human Regular 100 units/ml vial SC SCH ×4 (06:00→22:00)
[2017-07-14 06:45] LABS: BASO % 0.4 % (0.0-2.0); EOS # 0.4 K/uL (0.0-0.7); EOS % 4.4 % (0.0-4.0); HEMOGLOBIN 9.6 g/dL (12.0-18.0); LYMPH # 0.9 K/uL (1.0-4.3); LYMPH % 11.2 % (20.0-40.0); MEAN CORPUSCULAR HEMOGLOBIN 24.4 pg (27.0-31.0); MEAN CORPUSCULAR HGB CONC 31.3 g/dL (33.0-37.0); MEAN PLATELET VOLUME 9.3 fL (7.2-11.7); MONO # 0.4 K/uL (0.0-0.8); MONO % 5.3 % (0.0-10.0); NEUT # 6.7 K/uL (1.8-7.0); NEUT % 78.7 % (50.0-75.0); RBC 3.94 Mil/uL (4.40-5.90); RED CELL DISTRIBUTION WIDTH 20.4 % (11.5-14.5); WHITE BLOOD COUNT 8.5 K/uL (4.8-10.8)
[2017-07-14 06:57] LABS: ALBUMIN 3.2 g/dL (3.5-5.0); ALT/SGPT 14 U/L (21-72); AST/SGOT 30 U/L (17-59); BLOOD UREA NITROGEN 9 mg/dL (9-20); CALCIUM 8.6 mg/dl (8.6-10.4); GFR AFRICAN-AMERICAN > 60; GFR NON-AFRICAN AMERICAN > 60
[2017-07-14] MEDS: levETIRAcetam 500 MG in Sodium Chloride 0.9% 100 ML IVPB SCH ×2 (09:43→21:40)
--- NOTE | 2017-07-14 11:25 | EEG ---
DATE: 07/12/2017 Technical Information: Electrodes were placed according to the 10-20 International electrode system by cardiac cath lab technologist. Total of 23 electrodes (21 EEG and 2 EKG) were placed. EEG activity was digitally recorded referentially to P1/P2 or A1/A2 electrodes. Continuous monitoring with EEG was performed using digital analysis for spike detection. The [employer] spike and seizure detection algorithms were used for digital EEG analysis throughout the monitoring period to screen the EEG in real-time and godfrey the data file with pointers to electrographic seizures and interictal discharges. EEG was screened for electrographic seizures and interictal discharges by a technologist. Physician, epileptologist reviewed detections as well as extensive random samples and whole EEG study in detail. Digital EEG Analysis: Was carried out including FFT (Fast Fourier Transform), R2D2 (Rhythmicity Run Detection and Display), Relative Asymmetry Spectrogram, and voltage plot by the [employer] Software. The qualitative EEG analysis and the voltage plot mapping were used for detection of foci of paroxysmal and abnormal electrical cortical activity. General Description: Background Rhythm: There is a well-formed, 8-10 Hz posterior dominant rhythm that is reactive, symmetric, and attenuates with eye opening. There was a normal amount of frontal beta noted bilaterally. There is no sleep recorded. Activation Procedures: Photic stimulation: There is no driving noted. Hyperventilation: There is slowing noted that is self-remitted. Abnormal Activity: There are no focal epileptiform discharges noted. No clinical or subclinical seizures noted. Impression: This is a normal awake and drowsy EEG. Clinical correlation is required. There is diffuse slowing and does indicate mild encephalopathy. Marta Boykin MD
--- NOTE | 2017-07-14 15:09 | CP.PCM.PN ---
Subjective - Date & Time of Evaluation Date of Evaluation: 07/14/17 Time of Evaluation: 15:08 - Subjective Subjective: Mr. Nettles was seen and examined at the bedside in ICU. He was extubated and now alert, oriented up in a chair. He denies any headache, dizziness, lightheadedness, nausea, or vomiting. He is able to follow all simple commands. There was no untoward events overnight. Objective - Vital Signs/Intake and Output Vital Signs (last 24 hours): Temp Pulse Resp BP Pulse Ox 98.7 F 83 20 147/48 L 97 07/14/17 12:00 07/14/17 12:00 07/14/17 12:00 07/14/17 12:00 07/14/17 12:00 Intake and Output: 07/14/17 07/14/17 06:59 18:59 Intake Total 200 120 Output Total 750 100 Balance -550 20 - Medications Medications: Current Medications Acetaminophen (Tylenol 650mg/20.3ml Solution Ud) 650 mg NG Q4H PRN PRN Reason: Temp 100.4 or Greater. Aspirin (Ecotrin) 81 mg PO DAILY [facility] Last Admin: 07/14/17 11:05 Dose: Not Given Clopidogrel Bisulfate (Plavix) 75 mg PO DAILY [facility] Last Admin: 07/14/17 13:33 Dose: 75 mg Heparin Sodium (Porcine) (Heparin) 5,000 units SC Q8 [facility] Last Admin: 07/14/17 13:33 Dose: 5,000 units Levetiracetam 500 mg/ Sodium (Chloride) 105 mls @ 420 mls/hr IVPB Q12H [facility] Last Admin: 07/14/17 09:43 Dose: 420 mls/hr Piperacillin Sod/Tazobactam Sod (Zosyn 3.375 Gm Iv Premix) 3.375 gm in 50 mls @ 100 mls/hr IVPB Q6H [facility] PRN Reason: Protocol Last Admin: 07/14/17 09:43 Dose: 100 mls/hr Insulin Human Regular (Novolin R) 0 unit SC ACHS [facility] PRN Reason: Protocol Pantoprazole Sodium (Protonix Inj) 40 mg IVP DAILY [facility] Last Admin: 07/14/17 09:43 Dose: 40 mg - Labs Labs: 07/14/17 06:22 07/14/17 06:22 PT 15.3 SECONDS (9.7-12.2) H 07/12/17 05:59 INR 1.4 07/12/17 05:59 APTT 75 SECONDS (21-34) H D 07/12/17 05:59 - Constitutional Appears: No Acute Distress - Head Exam Head Exam: NORMAL INSPECTION - Neurological Exam Neurological Exam: Alert, Awake, Oriented x3 Neuro motor strength exam: Left Upper Extremity: 5, Right Upper Extremity: 5, Left Lower Extremity: 5, Right Lower Extremity: 5 Additional comments: Neurological improvement from previous examination. Assessment and Plan (1) Seizure Assessment & Plan: Case discussed with Dr. Cortes, continue all current medical, physical, and occupational therapies. There is no new recommendations from neurology. Status: Acute
[2017-07-15] MEDS: (Novolin R) Insulin Human Regular 100 units/ml vial SC SCH ×4 (08:17→21:44)
[2017-07-15] MEDS: levETIRAcetam 500 MG in Sodium Chloride 0.9% 100 ML IVPB SCH ×2 (11:16→21:34)
--- NOTE | 2017-07-15 11:19 | VASCLAB ---
PROCEDURE: HISTORY: evaluation of the left ICA and carotid bifurcation COMPARISON: None available. TECHNIQUE: Grayscale and duplex Doppler evaluation of the cervical carotid and vertebral arteries were performed. The common carotid, carotid bifurcations and cervical Internal Carotid Artery (ICA) and proximal External Carotid Artery (ECA) were evaluated. The vertebral arteries were evaluated for gross patency and flow direction. Report prepared by CAM Devlin FINDINGS: RIGHT CAROTID ARTERIES: 1. Common Carotid Artery: No significant focal plaque formation of the right common carotid artery. Maximum Peak Systolic velocity: 67 cm/sec: End-diastolic velocity 6 cm/sec. 2. Carotid Bifurcation: Calcific plaque formation. Maximum Peak Systolic velocity: 53 cm/sec: End-diastolic velocity 6 cm/sec. 3. Internal Carotid Artery: Plaque description: Calcific 3.1. Proximal Segment: Peak systolic velocity 58 cm/sec: End-diastolic velocity 5 cm/sec - % stenosis 0-15% 3.2. Middle Segment: Peak systolic velocity 100 cm/sec: End-diastolic velocity 17 cm/sec - % stenosis 0-15% 3.3. Distal Segment: Peak systolic velocity 57 cm/sec: End-diastolic velocity 12 cm/sec - % stenosis 0-15% 4. External Carotid Artery: No significant focal plaque formation. Peak systolic velocity 108 cm/sec 5. ICA/CCA Ratio: 1.5 LEFT CAROTID ARTERIES: 1. Common Carotid Artery: No significant focal plaque formation of the left common carotid artery. Maximum Peak Systolic velocity: 72 cm/sec: End-diastolic velocity 0 cm/sec. 2. Carotid Bifurcation: plaque formation. Maximum Peak Systolic velocity: 84 cm/sec: End-diastolic velocity 8 cm/sec. 3. Internal Carotid Artery: Moderate plaque formation of the left proximal ICA which does not in hemodynamically significant stenosis. Plaque description: Calcific 3.1. Proximal Segment: Peak systolic velocity 104 cm/sec: End-diastolic velocity 19 cm/sec - % stenosis 0-15% 3.2. Middle Segment: Peak systolic velocity 93 cm/sec: End-diastolic velocity 19 cm/sec - % stenosis 0-15% 3.3. Distal Segment: Peak systolic velocity 80 cm/sec: End-diastolic velocity 16 cm/sec - % stenosis 0-15% 4. External Carotid Artery: No significant focal plaque formation. Peak systolic velocity 99 cm/sec 5. ICA/CCA Ratio: 1.4 VERTEBRAL ARTERIES: 1. Right Vertebral Artery: The right vertebral artery flow direction is antegrade. 2. Left Vertebral Artery: The left vertebral artery flow direction is antegrade. OTHER FINDINGS: 1. Right Brachial Blood pressure: 110 mmHg. 2. Left Brachial Blood pressure: 110 mmHg. IMPRESSION: RIGHT: Duplex scan does not suggest hemodynamically significant stenosis of the right extracranial carotid arteries. LEFT: Duplex scan does not suggest hemodynamically significant stenosis of the left extracranial carotid arteries. Severe tortuosity of the left internal carotid artery.
--- NOTE | 2017-07-15 23:50 | CP.PCM.PN ---
Subjective - Date & Time of Evaluation Date of Evaluation: 07/15/17 Time of Evaluation: 16:00 - Subjective Subjective: Progress Note for Dr. Rea 81 year old male with history of HTN, DM, and CAD S/P CABG presents to the ED on 07/10/17 after becoming unresponse while eating dinner. Patient was intubated on the field by EMS. En route to the ED, patient had an episode of seizure with left sided gaze. While in ED, patient was found to have a complete heart block and pulseless, resolved with epinephrine and atropine. No TPA as per Neurology. No code heart per interventional cardiology. Patient was admitted to ICU for further management. Patient's condition stabilized and was extubated on 07/14/17. Patient seen and examined at bedside. Patient was transferred out of ICU today. No acute events reported overnight. Patient is able to follow verbal commands. Per chart review, patient is mildly confused at baseline. Patient states he wants to go home. He denies any headache, dizziness , lightheadedness, nausea, or vomiting. Objective - Vital Signs/Intake and Output Vital Signs (last 24 hours): Temp Pulse Resp BP Pulse Ox 98.6 F 84 20 176/76 H 97 07/15/17 20:43 07/15/17 20:43 07/15/17 20:43 07/15/17 20:53 07/15/17 20:43 Intake and Output: 07/15/17 07/16/17 18:59 06:59 Intake Total 300 200 Output Total 150 Balance 300 50 - Medications Medications: Current Medications Acetaminophen (Tylenol 650mg/20.3ml Solution Ud) 650 mg NG Q4H PRN PRN Reason: Temp 100.4 or Greater. Aspirin (Ecotrin) 81 mg PO DAILY [facility] Last Admin: 07/15/17 09:01 Dose: 81 mg Clopidogrel Bisulfate (Plavix) 75 mg PO DAILY [facility] Last Admin: 07/15/17 09:01 Dose: 75 mg Levetiracetam 500 mg/ Sodium (Chloride) 105 mls @ 420 mls/hr IVPB Q12H [facility] Last Admin: 07/15/17 21:34 Dose: 420 mls/hr Insulin Human Regular (Novolin R) 0 unit SC ACHS [facility] PRN Reason: Protocol Last Admin: 07/15/17 21:44 Dose: Not Given Nebivolol (Bystolic) 5 mg PO DAILY [facility] Last Admin: 07/15/17 13:53 Dose: 5 mg Pantoprazole Sodium (Protonix Inj) 40 mg IVP DAILY [facility] Last Admin: 07/15/17 09:01 Dose: 40 mg - Labs Labs: 07/14/17 06:22 07/14/17 06:22 PT 15.3 SECONDS (9.7-12.2) H 07/12/17 05:59 INR 1.4 07/12/17 05:59 APTT 75 SECONDS (21-34) H D 07/12/17 05:59 - Constitutional Appears: Non-toxic, No Acute Distress - Head Exam Head Exam: ATRAUMATIC, NORMOCEPHALIC - Eye Exam Eye Exam: Normal appearance, PERRL - ENT Exam ENT Exam: Mucous Membranes Moist - Neck Exam Neck Exam: Normal Inspection - Respiratory Exam Respiratory Exam: Clear to Ausculation Bilateral, NORMAL BREATHING PATTERN. absent: Respiratory Distress - Cardiovascular Exam Cardiovascular Exam: +S1, +S2 - GI/Abdominal Exam GI & Abdominal Exam: Soft, Normal Bowel Sounds. absent: Tenderness - Extremities Exam Extremities Exam: Normal Inspection - Neurological Exam Neurological Exam: Alert, Awake, Oriented x3 - Psychiatric Exam Psychiatric exam: Normal Affect, Normal Mood - Skin Skin Exam: Dry, Warm Assessment and Plan - Assessment and Plan (Free Text) Assessment: Transient loss of consciousness -RADHA vs bradyarrhythmia vs seizure -Cardiology consulted -EP consulted -CT head, CT neck no acute abnormality -Echo 07/10 shows Moderately calcified aortic valve, Grade I - abnormal relaxation patter, EF > 70% -Carotid dopper shows no significant stenosis on left and right extracranial carotid arteries. Severe tortuosity of Left ICA Unsteady gait, weakness -PT eval and treat -Recommending SONJA -Fall precaution Seizure -Keppra 500mg Q12h -EEG showed no seizure activity but a moderate encephalopathy -Neurology consulted, Dr. Cortes help appreciated CAD s/p CABG -ASA 81mg -Plavix 75mg -Nebivolol 5mg Diabetes -A1C 7.1 on 07/10/17 -FS ACHS -ISS -Hypoglycemia protocol Hypertension -Nebivolol 5mg Leukocytosis, resolved -12.7 on admission -Blood, urine cultures negative Prophylactic measures -Protonix -SCD All management per Dr. Rea
[2017-07-16] MEDS ORDERED: Glucagon Recombinant 1 mg Inj IM PRN (01:34)
[2017-07-16] MEDS ORDERED: Dextrose 50% SYRINGE Inj (50 ml) IVP PRN (01:34)
--- NOTE | 2017-07-16 06:48 | CP.PCM.PN ---
Subjective - Date & Time of Evaluation Date of Evaluation: 07/16/17 Time of Evaluation: 06:48 - Subjective Subjective: Mr. Nettles was seen and examined at the bedside. He is alert, oriented up in a chair. He had an episode of restlessness and agitation earlier this morning. The staff was able to redirect him. He is able to state his medical conditions and includes his need to physical therapy. He denies any headache, dizziness, lightheadedness, nausea, or vomiting. He is able to follow all simple commands. There was no untoward events overnight. Objective - Vital Signs/Intake and Output Vital Signs (last 24 hours): Temp Pulse Resp BP Pulse Ox 98.1 F 79 20 169/74 H 97 07/16/17 00:13 07/16/17 00:13 07/16/17 00:13 07/16/17 00:13 07/16/17 00:13 Intake and Output: 07/15/17 07/16/17 18:59 06:59 Intake Total 300 350 Output Total 750 Balance 300 -400 - Medications Medications: Current Medications Acetaminophen (Tylenol 650mg/20.3ml Solution Ud) 650 mg NG Q4H PRN PRN Reason: Temp 100.4 or Greater. Aspirin (Ecotrin) 81 mg PO DAILY [facility] Last Admin: 07/15/17 09:01 Dose: 81 mg Clopidogrel Bisulfate (Plavix) 75 mg PO DAILY [facility] Last Admin: 07/15/17 09:01 Dose: 75 mg Dextrose (Dextrose 50% Inj) 0 ml IVP .STAT PRN; Protocol PRN Reason: Hypoglycemia Protocol Dextrose (Glutose 15) 0 gm PO .ONCE PRN; Protocol PRN Reason: Hypoglycemia Protocol Glucagon (Glucagen Diagnostic Kit) 0 mg IM .STAT PRN; Protocol PRN Reason: Hypoglycemia Protocol Levetiracetam 500 mg/ Sodium (Chloride) 105 mls @ 420 mls/hr IVPB Q12H [facility] Last Admin: 07/15/17 21:34 Dose: 420 mls/hr Dextrose (Dextrose 5% In Water 1000 Ml) 1,000 mls @ 0 mls/hr IV .Q0M PRN; Protocol; Per Protocol PRN Reason: Hypoglycemia Protocol Insulin Human Regular (Novolin R) 0 unit SC ACHS [facility] PRN Reason: Protocol Last Admin: 07/15/17 21:44 Dose: Not Given Nebivolol (Bystolic) 5 mg PO DAILY [facility] Last Admin: 07/15/17 13:53 Dose: 5 mg Pantoprazole Sodium (Protonix Inj) 40 mg IVP DAILY [facility] Last Admin: 07/15/17 09:01 Dose: 40 mg - Labs Labs: 07/14/17 06:22 07/14/17 06:22 PT 15.3 SECONDS (9.7-12.2) H 07/12/17 05:59 INR 1.4 07/12/17 05:59 APTT 75 SECONDS (21-34) H D 07/12/17 05:59 - Constitutional Appears: No Acute Distress - Head Exam Head Exam: NORMAL INSPECTION - Neurological Exam Neurological Exam: Alert, Awake, Oriented x3 Neuro motor strength exam: Left Upper Extremity: 5, Right Upper Extremity: 5, Left Lower Extremity: 3, Right Lower Extremity: 3 Additional comments: Neurological improved from previous examination. Assessment and Plan (1) Seizure Assessment & Plan: Case discussed with Dr. Cortes, continue all current medical, physical, and occupational therapies. Recommend seroquel 25 mg PO at HS to alleviate nighttime confusion. Status: Acute
[2017-07-16] MEDS: (Novolin R) Insulin Human Regular 100 units/ml vial SC SCH ×4 (07:41→22:07)
[2017-07-16 08:07] LABS: BASO % 0.6 % (0.0-2.0); EOS # 0.6 K/uL (0.0-0.7); EOS % 8.2 % (0.0-4.0); HEMOGLOBIN 9.6 g/dL (12.0-18.0); LYMPH # 0.9 K/uL (1.0-4.3); LYMPH % 12.3 % (20.0-40.0); MEAN CELL VOLUME 76.9 fL (80.0-94.0); MEAN CORPUSCULAR HEMOGLOBIN 24.6 pg (27.0-31.0); MEAN PLATELET VOLUME 8.5 fL (7.2-11.7); MONO # 0.4 K/uL (0.0-0.8); MONO % 5.8 % (0.0-10.0); NEUT # 5.3 K/uL (1.8-7.0); NEUT % 73.1 % (50.0-75.0); NRBC % 0.1 % (0.0-2.0); RBC 3.91 Mil/uL (4.40-5.90); RED CELL DISTRIBUTION WIDTH 21.1 % (11.5-14.5); WHITE BLOOD COUNT 7.2 K/uL (4.8-10.8)
--- NOTE | 2017-07-16 08:17 | CP.PCM.PN ---
Subjective - Date & Time of Evaluation Date of Evaluation: 07/15/17 Time of Evaluation: 11:00 - Subjective Subjective: COVERAGE FOR DR POSADAS patient is extubated. awake, alert. Objective - Vital Signs/Intake and Output Vital Signs (last 24 hours): Temp Pulse Resp BP Pulse Ox 98.1 F 79 20 169/74 H 97 07/16/17 00:13 07/16/17 00:13 07/16/17 00:13 07/16/17 00:13 07/16/17 00:13 Intake and Output: 07/16/17 07/16/17 06:59 18:59 Intake Total 350 Output Total 750 Balance -400 - Medications Medications: Current Medications Acetaminophen (Tylenol 650mg/20.3ml Solution Ud) 650 mg NG Q4H PRN PRN Reason: Temp 100.4 or Greater. Aspirin (Ecotrin) 81 mg PO DAILY [facility] Last Admin: 07/15/17 09:01 Dose: 81 mg Clopidogrel Bisulfate (Plavix) 75 mg PO DAILY [facility] Last Admin: 07/15/17 09:01 Dose: 75 mg Dextrose (Dextrose 50% Inj) 0 ml IVP .STAT PRN; Protocol PRN Reason: Hypoglycemia Protocol Dextrose (Glutose 15) 0 gm PO .ONCE PRN; Protocol PRN Reason: Hypoglycemia Protocol Glucagon (Glucagen Diagnostic Kit) 0 mg IM .STAT PRN; Protocol PRN Reason: Hypoglycemia Protocol Levetiracetam 500 mg/ Sodium (Chloride) 105 mls @ 420 mls/hr IVPB Q12H [facility] Last Admin: 07/15/17 21:34 Dose: 420 mls/hr Dextrose (Dextrose 5% In Water 1000 Ml) 1,000 mls @ 0 mls/hr IV .Q0M PRN; Protocol; Per Protocol PRN Reason: Hypoglycemia Protocol Insulin Human Regular (Novolin R) 0 unit SC ACHS [facility] PRN Reason: Protocol Last Admin: 07/15/17 21:44 Dose: Not Given Nebivolol (Bystolic) 5 mg PO DAILY [facility] Last Admin: 07/15/17 13:53 Dose: 5 mg Pantoprazole Sodium (Protonix Inj) 40 mg IVP DAILY [facility] Last Admin: 07/15/17 09:01 Dose: 40 mg Quetiapine Fumarate (Seroquel) 25 mg PO HS [facility] - Labs Labs: 07/16/17 08:01 07/14/17 06:22 PT 15.3 SECONDS (9.7-12.2) H 07/12/17 05:59 INR 1.4 07/12/17 05:59 APTT 75 SECONDS (21-34) H D 07/12/17 05:59 - Constitutional Appears: Non-toxic - Head Exam Head Exam: NORMAL INSPECTION - Eye Exam Eye Exam: Normal appearance - ENT Exam ENT Exam: Mucous Membranes Moist - Neck Exam Neck Exam: Full ROM - Respiratory Exam Respiratory Exam: NORMAL BREATHING PATTERN - Cardiovascular Exam Cardiovascular Exam: REGULAR RHYTHM - GI/Abdominal Exam GI & Abdominal Exam: Normal Bowel Sounds - Rectal Exam Rectal Exam: Deferred - Extremities Exam Extremities Exam: Pedal Edema - Back Exam Back Exam: NORMAL INSPECTION - Neurological Exam Neurological Exam: Alert - Psychiatric Exam Psychiatric exam: Normal Affect - Skin Skin Exam: Normal Color Assessment and Plan (1) Cardiac arrest Assessment & Plan: appears nerupologically intact. The etiology of his cardiac arrest reamins unclear. recommend cardiac cath for further evaluation. will follow neuro status. Status: Acute
[2017-07-16 08:28] LABS: ALB/GLOB RATIO 1.1 (1.0-2.1); ALBUMIN 3.7 g/dL (3.5-5.0); ALT/SGPT 19 U/L (21-72); AST/SGOT 29 U/L (17-59); BLOOD UREA NITROGEN 10 mg/dL (9-20); CALCIUM 9.4 mg/dl (8.6-10.4); GFR AFRICAN-AMERICAN > 60; GFR NON-AFRICAN AMERICAN > 60
[2017-07-16] MEDS: levETIRAcetam 500 MG in Sodium Chloride 0.9% 100 ML IVPB SCH ×2 (09:42→22:00)
--- NOTE | 2017-07-16 15:15 | CP.PCM.PN ---
Addendum entered and electronically signed by Jose Antonio Moreno DO 07/16/17 17:13: Spoken to the son, Otis Nettles over the phone . Son states patient started to become slightly more forgetful and confused at times after his triple bypass surgery 3 years ago. He suspects it might be a side effect of the anesthesia. Original Note: <Jose Antonio Moreno - Last Filed: 07/16/17 16:26> Subjective - Date & Time of Evaluation Date of Evaluation: 07/16/17 Time of Evaluation: 09:00 - Subjective Subjective: Progress Note for Dr. Shepard Patient seen and examined at bedside. 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 Patient's bystolic was held for today. Patient currently resting in bed comfortably. Patient informed me that his goes to [facility] at [place] and his primary social media marketing specialist Dr. Segura. Per his cardiology, patient had a triple bypass surgery in [address] Ng at [facility]. Patient had a follow up cardiac cath after which showed clean coronaries. Dr. Segura Pharmacy: [facility] Objective - Vital Signs/Intake and Output Vital Signs (last 24 hours): Temp Pulse Resp BP Pulse Ox 98.3 F 67 20 168/72 H 96 07/16/17 11:30 07/16/17 15:08 07/16/17 11:30 07/16/17 15:08 07/16/17 11:30 Intake and Output: 07/16/17 07/16/17 06:59 18:59 Intake Total 350 Output Total 750 Balance -400 - Medications Medications: Current Medications Acetaminophen (Tylenol 650mg/20.3ml Solution Ud) 650 mg NG Q4H PRN PRN Reason: Temp 100.4 or Greater. Aspirin (Ecotrin) 81 mg PO DAILY [facility] Last Admin: 07/16/17 09:40 Dose: 81 mg Clopidogrel Bisulfate (Plavix) 75 mg PO DAILY [facility] Last Admin: 07/16/17 09:40 Dose: 75 mg Dextrose (Dextrose 50% Inj) 0 ml IVP .STAT PRN; Protocol PRN Reason: Hypoglycemia Protocol Dextrose (Glutose 15) 0 gm PO .ONCE PRN; Protocol PRN Reason: Hypoglycemia Protocol Glucagon (Glucagen Diagnostic Kit) 0 mg IM .STAT PRN; Protocol PRN Reason: Hypoglycemia Protocol Hydralazine HCl (Apresoline) 5 mg IVP TID [facility] Last Admin: 07/16/17 15:00 Dose: 5 mg Levetiracetam 500 mg/ Sodium (Chloride) 105 mls @ 420 mls/hr IVPB Q12H [facility] Last Admin: 07/16/17 09:42 Dose: 420 mls/hr Dextrose (Dextrose 5% In Water 1000 Ml) 1,000 mls @ 0 mls/hr IV .Q0M PRN; Protocol; Per Protocol PRN Reason: Hypoglycemia Protocol Insulin Human Regular (Novolin R) 0 unit SC ACHS [facility] PRN Reason: Protocol Last Admin: 07/16/17 11:27 Dose: Not Given Losartan Potassium (Cozaar) 50 mg PO DAILY [facility] Last Admin: 07/16/17 10:16 Dose: 50 mg Nebivolol (Bystolic) 5 mg PO DAILY [facility] Last Admin: 07/16/17 09:40 Dose: 5 mg Pantoprazole Sodium (Protonix Inj) 40 mg IVP DAILY [facility] Last Admin: 07/16/17 09:41 Dose: 40 mg Quetiapine Fumarate (Seroquel) 25 mg PO HS [facility] - Labs Labs: 07/16/17 08:01 07/16/17 08:01 PT 15.3 SECONDS (9.7-12.2) H 07/12/17 05:59 INR 1.4 07/12/17 05:59 APTT 75 SECONDS (21-34) H D 07/12/17 05:59 - Additional Findings Additional findings: - Constitutional Appears: Non-toxic, No Acute Distress - Head Exam Head Exam: ATRAUMATIC, NORMOCEPHALIC - Eye Exam Eye Exam: Normal appearance, PERRL - ENT Exam ENT Exam: Mucous Membranes Moist - Neck Exam Neck Exam: Normal Inspection - Respiratory Exam Respiratory Exam: Clear to Ausculation Bilateral, NORMAL BREATHING PATTERN. absent: Respiratory Distress - Cardiovascular Exam Cardiovascular Exam: +S1, +S2 - GI/Abdominal Exam GI & Abdominal Exam: Soft, Normal Bowel Sounds. absent: Tenderness - Extremities Exam Extremities Exam: Normal Inspection - Neurological Exam Neurological Exam: Alert, Awake, Oriented x3 - Psychiatric Exam Psychiatric exam: Normal Affect, Normal Mood - Skin Skin Exam: Dry, Warm Assessment and Plan - Assessment and Plan (Free Text) Assessment: Transient loss of consciousness -RADHA vs bradyarrhythmia vs seizure -CT head, CT neck no acute abnormality -Echo 07/10 shows Moderately calcified aortic valve, Grade I - abnormal relaxation patter, EF > 70% -Carotid dopper shows no significant stenosis on left and right extracranial carotid arteries. Severe tortuosity of Left ICA -Cardiology consulted -EP consulted -Avoid conduction odell-stressors such digoxin and cardizem -Pending cardiac cath, EP studies follow Unsteady gait, weakness -PT eval and treat -Recommending SONJA -Fall precaution Seizure -Keppra 500mg Q12h -EEG showed no seizure activity but a moderate encephalopathy -Neurology consulted, Dr. Cortes help appreciated Agitation -seroquel 25mg HS CAD s/p CABG -ASA 81mg -Plavix 75mg -Nebivolol 5mg on hold due to bradycardia Diabetes -A1C 7.1 on 07/10/17 -FS ACHS -ISS -Hypoglycemia protocol Hypertension -Losartan 50mg -Hydralazine 5mg TID Leukocytosis, resolved -12.7 on admission -Blood, urine cultures negative Prophylactic measures -Protonix -SCD <Cristiana Shepard V - Last Filed: 07/16/17 22:06> Objective - Vital Signs/Intake and Output Vital Signs (last 24 hours): Temp Pulse Resp BP Pulse Ox 98.0 F 82 20 168/72 H 97 07/16/17 15:00 07/16/17 16:00 07/16/17 15:00 07/16/17 15:08 07/16/17 15:00 - Medications Medications: Current Medications Acetaminophen (Tylenol 650mg/20.3ml Solution Ud) 650 mg NG Q4H PRN PRN Reason: Temp 100.4 or Greater. Albuterol/Ipratropium (Duoneb 3 Mg/0.5 Mg (3 Ml) Ud) 3 ml INH RQ4 PRN PRN Reason: Shortness of Breath Aspirin (Ecotrin) 81 mg PO DAILY [facility] Last Admin: 07/16/17 09:40 Dose: 81 mg Clopidogrel Bisulfate (Plavix) 75 mg PO DAILY [facility] Last Admin: 07/16/17 09:40 Dose: 75 mg Dextrose (Dextrose 50% Inj) 0 ml IVP .STAT PRN; Protocol PRN Reason: Hypoglycemia Protocol Dextrose (Glutose 15) 0 gm PO .ONCE PRN; Protocol PRN Reason: Hypoglycemia Protocol Glucagon (Glucagen Diagnostic Kit) 0 mg IM .STAT PRN; Protocol PRN Reason: Hypoglycemia Protocol Hydralazine HCl (Apresoline) 25 mg PO Q8H [facility] Levetiracetam 500 mg/ Sodium (Chloride) 105 mls @ 420 mls/hr IVPB Q12H [facility] Last Admin: 07/16/17 09:42 Dose: 420 mls/hr Dextrose (Dextrose 5% In Water 1000 Ml) 1,000 mls @ 0 mls/hr IV .Q0M PRN; Protocol; Per Protocol PRN Reason: Hypoglycemia Protocol Insulin Human Regular (Novolin R) 0 unit SC ACHS LITTLE PRN Reason: Protocol Last Admin: 07/16/17 17:24 Dose: 2 unit Losartan Potassium (Cozaar) 50 mg PO DAILY [facility] Last Admin: 07/16/17 10:16 Dose: 50 mg Nebivolol (Bystolic) 5 mg PO DAILY [facility] Last Admin: 07/16/17 09:40 Dose: 5 mg Pantoprazole Sodium (Protonix Inj) 40 mg IVP DAILY [facility] Last Admin: 07/16/17 09:41 Dose: 40 mg Quetiapine Fumarate (Seroquel) 25 mg PO HS LITTLE - Labs Labs: 07/16/17 08:01 07/16/17 08:01 PT 15.3 SECONDS (9.7-12.2) H 07/12/17 05:59 INR 1.4 07/12/17 05:59 APTT 75 SECONDS (21-34) H D 07/12/17 05:59 Attending/Attestation - Attestation I have personally seen and examined this patient.: Yes I have fully participated in the care of the patient.: Yes I have reviewed all pertinent clinical information, including history, physical exam and plan: Yes Notes (Text): Patient seen, examined and case discussed with medical service representative. Patient upgraded to telemetry given he is pending cardiac workup for arrhythmia for his TIA. Assessment/Plan 1) Acute Respiratory Failure * Intubated in the field on admission * Extubated on 07/13/17 * Transferred out from ICU 2) Cardiac Arrest Complete Heart Block Bradyarrhytmia * Monitor on telemetry * Cardiology (Dr. Ledbetter) on case help appreciated * Dr. Marvin is covering while he is away * Cardiology-EPS (Dr. Morgan) on case help appreciated * Asking for cardiac cath to see if related to obstructive coronaries prior to EP/AICD * Per his note: "Assuming a hemodynamic event (documentation and evolution unavailable) a bradyarrhythmia (Lozoya Jimenez attack) is a possibility in a setting of a baseline conduction defect; the mild increase in serum potassium is likely incidental or may have a tangential effect on myocardial conduction; * Preserved LV function argues against a ventricular arrhythmia * If hypoglycemia and a primary neurological events are discounted, would exclude myocardial ischemia as a trigger for a ventricular arrhythmia. * If the grafted coronaries are not obstructive, options include an EP study, followed by a device implant (ICD /pacemaker/Loop recorder)" * on admission; required epi/cpr * ED spoke with Interventional cardiology: no cath at time of admission; admitted to the ICU * Echo 07/10 shows Moderately calcified aortic valve, Grade I - abnormal relaxation patter, EF > 70% * Patient is pending cardiac cath-->will need to f/u cardiology when to scheduled in order to coordinate with EP-cardiology * Per EP-->avoid conduction odell stresors * CT angio ruled out PE 3) Seizure * Neurology (Dr. oCrtes) on the case-->help appreciated * CT head negative; no TPA per neurology * CTA of the head showed moderate to significant stenosis left carotid bifurcation and left ICA. There are stenotic changes also seen involving both cavernous carotid arteries right greater than the left. There is no evidence of occlusion of the extracranial or intracranial arterial circulation. There is no evidence of large aneurysm nor vascular malformation. * Repeat CT scan of the head done 07/11/2017 showed no acute intracranial hemorrhage. Mild chronic white matter ischemic changes with scattered bilateral basal nuclei a lacunar type infarcts. Moderate generalized volume loss * EEG: metabolic encephalopathy w/o seizure * Keppra 500mg Q12h * Cartiod duplex: negative 4) Unsteady gait, weakness * PT eval and treat-->Recommending SONJA * Fall precautions 5) Agitation * seroquel 25mg HS 6) History of CAD s/p CABG * CABG was 3 years ago in 2014; patient had f/u cardiac cath which were noted to be cleared * Will need to f/u cardiology in regards to cath given EP request * ASA 81mg PO daily * Plavix 75mg PO daily * Patient's outpatient social media marketing specialist: Dr. Segura * Losartan 50mg PO daily * Avoid calcium channel, digoxin, Av odell until EP workup * Crestor 10mg POqHS 7) Diabetes * A1C 7.1 on 07/10/17 * Accuechecks QAC and HS * Regular insulin sliding scale * Hypoglycemia protocol 8) Uncontrolled Hypertension * Losartan 50mg PO daily * Start Hydralazine 25mg PO TID 9) Leukocytosis * likely reactive secondary to cardiac arrest and respiratory failure * infectious etology ruled out * Blood (07/10): no growth X 5days X2 * Urine culture (07/11) negative 10) Anemia * Will check ferritin, iron studies, b12, folate, reti count 11) Prophylactic measures * Fall precautions * seizure precautions * Protonix 40mg Iv daily * Heparin 5000units subq8H Disposition: will need to f/u with cardiology to determine to schedule cardiac cath in order to EP to start their workup
[2017-07-16] MEDS ORDERED: Albuterol-Ipratrop 3 mg / 0.5 (3 ml) UD INH PRN (16:50)
[2017-07-16] MEDS ORDERED: Acetaminophen 650mg/20.3ml solution UD PO PRN (22:01)
[2017-07-16 23:14] LABS: IRON 28 ug/dL (49-181)
[2017-07-16 23:24] LABS: % IRON SATURATION 7 (20-55); TOTAL IRON BINDING CAPACITY 404 ug/dL (250-450)
[2017-07-17 00:25] LABS: FOLATE > 20.0 ng/mL
[2017-07-17 06:38] LABS: BASO # 0.1 K/uL (0.0-0.2); BASO % 1.3 % (0.0-2.0); EOS # 0.5 K/uL (0.0-0.7); EOS % 8.3 % (0.0-4.0); HEMOGLOBIN 9.4 g/dL (12.0-18.0); LYMPH # 0.9 K/uL (1.0-4.3); LYMPH % 14.4 % (20.0-40.0); MEAN CELL VOLUME 77.1 fL (80.0-94.0); MEAN CORPUSCULAR HEMOGLOBIN 24.4 pg (27.0-31.0); MEAN CORPUSCULAR HGB CONC 31.7 g/dL (33.0-37.0); MEAN PLATELET VOLUME 8.3 fL (7.2-11.7); MONO # 0.5 K/uL (0.0-0.8); MONO % 7.6 % (0.0-10.0); NEUT # 4.4 K/uL (1.8-7.0); NEUT % 68.4 % (50.0-75.0); RBC 3.85 Mil/uL (4.40-5.90); RED CELL DISTRIBUTION WIDTH 20.9 % (11.5-14.5); WHITE BLOOD COUNT 6.4 K/uL (4.8-10.8)
[2017-07-17 07:02] LABS: ALBUMIN 3.5 g/dL (3.5-5.0); ALT/SGPT 20 U/L (21-72); AST/SGOT 28 U/L (17-59); BLOOD UREA NITROGEN 9 mg/dL (9-20); CALCIUM 8.8 mg/dl (8.6-10.4); GFR AFRICAN-AMERICAN > 60; GFR NON-AFRICAN AMERICAN > 60
[2017-07-17 07:25] LABS: FERRITIN 16.2 ng/mL
[2017-07-17] MEDS: (Novolin R) Insulin Human Regular 100 units/ml vial SC SCH ×4 (09:12→22:44)
[2017-07-17] MEDS: levETIRAcetam 500 MG in Sodium Chloride 0.9% 100 ML IVPB SCH ×2 (09:12→21:18)
--- NOTE | 2017-07-17 12:48 | CP.PCM.PN ---
<Audra Danielle - Last Filed: 07/17/17 12:46> Subjective - Date & Time of Evaluation Date of Evaluation: 07/17/17 Time of Evaluation: 09:00 - Subjective Subjective: Medicine Note for Hospitalist- Dr. Shepard Patient was and seen and examined at bedside. Son was at bedside. Current events and update on plan were discussed with son, all questions answered. Patient has been altered and agitated since last night. Currently he is still altered. Denied fever, chills, headache, chest pain, abdominal pain, n/v/d/c/, or urinary symptoms. Objective - Vital Signs/Intake and Output Vital Signs (last 24 hours): Temp Pulse Resp BP Pulse Ox 98 F 64 20 156/78 H 99 07/17/17 07:30 07/17/17 07:43 07/17/17 07:30 07/17/17 07:30 07/17/17 07:30 Intake and Output: 07/17/17 07/17/17 06:59 18:59 Intake Total 500 Output Total 550 Balance -50 - Medications Medications: Current Medications Acetaminophen (Tylenol 650mg/20.3ml Solution Ud) 650 mg PO Q6H PRN PRN Reason: Temp 100.4 or Greater. Albuterol/Ipratropium (Duoneb 3 Mg/0.5 Mg (3 Ml) Ud) 3 ml INH RQ4 PRN PRN Reason: Shortness of Breath Aspirin (Ecotrin) 81 mg PO DAILY [facility] Last Admin: 07/17/17 09:12 Dose: 81 mg Clopidogrel Bisulfate (Plavix) 75 mg PO DAILY [facility] Last Admin: 07/17/17 09:12 Dose: 75 mg Dextrose (Dextrose 50% Inj) 0 ml IVP .STAT PRN; Protocol PRN Reason: Hypoglycemia Protocol Dextrose (Glutose 15) 0 gm PO .ONCE PRN; Protocol PRN Reason: Hypoglycemia Protocol Glucagon (Glucagen Diagnostic Kit) 0 mg IM .STAT PRN; Protocol PRN Reason: Hypoglycemia Protocol Heparin Sodium (Porcine) (Heparin) 5,000 units SC Q8 [facility] Last Admin: 07/17/17 05:28 Dose: 5,000 units Hydralazine HCl (Apresoline) 50 mg PO Q8H [facility] Last Admin: 07/17/17 10:45 Dose: 50 mg Levetiracetam 500 mg/ Sodium (Chloride) 105 mls @ 420 mls/hr IVPB Q12H [facility] Last Admin: 07/17/17 09:12 Dose: 420 mls/hr Dextrose (Dextrose 5% In Water 1000 Ml) 1,000 mls @ 0 mls/hr IV .Q0M PRN; Protocol; Per Protocol PRN Reason: Hypoglycemia Protocol Insulin Human Regular (Novolin R) 0 unit SC ACHS [facility] PRN Reason: Protocol Last Admin: 07/17/17 09:12 Dose: 2 unit Losartan Potassium (Cozaar) 50 mg PO DAILY [facility] Last Admin: 07/17/17 09:12 Dose: 50 mg Pantoprazole Sodium (Protonix Inj) 40 mg IVP DAILY [facility] Last Admin: 07/17/17 09:13 Dose: 40 mg Quetiapine Fumarate (Seroquel) 25 mg PO HS [facility] Last Admin: 07/16/17 22:17 Dose: 25 mg Rosuvastatin Calcium (Crestor) 10 mg PO HS [facility] - Labs Labs: 07/17/17 06:32 07/17/17 06:32 PT 15.3 SECONDS (9.7-12.2) H 07/12/17 05:59 INR 1.4 07/12/17 05:59 APTT 75 SECONDS (21-34) H D 07/12/17 05:59 - Additional Findings Additional findings: - Constitutional Appears: Non-toxic, No Acute Distress - Head Exam Head Exam: ATRAUMATIC, NORMOCEPHALIC - Eye Exam Eye Exam: Normal appearance, PERRL - ENT Exam ENT Exam: Mucous Membranes Moist - Neck Exam Neck Exam: Normal Inspection - Respiratory Exam Respiratory Exam: Clear to Ausculation Bilateral, NORMAL BREATHING PATTERN. absent: Respiratory Distress - Cardiovascular Exam Cardiovascular Exam: +S1, +S2 - GI/Abdominal Exam GI & Abdominal Exam: Soft, Normal Bowel Sounds. absent: Tenderness - Extremities Exam Extremities Exam: Normal Inspection - Neurological Exam Neurological Exam: Alert, Awake, Oriented x3 - Psychiatric Exam Psychiatric exam: Normal Affect, Normal Mood - Skin Skin Exam: Dry, Warm Assessment and Plan - Assessment and Plan (Free Text) Plan: 1) Acute Respiratory Failure * Intubated in the field on admission * Extubated on 07/13/17 * Transferred out from ICU 2) Cardiac Arrest Complete Heart Block Bradyarrhytmia * Monitor on telemetry * Cardiology (Dr. Ledbetter) on case help appreciated * Dr. Marvin is covering while he is away * Cardiology-EPS (Dr. Morgan) on case help appreciated * Asking for cardiac cath to see if related to obstructive coronaries prior to EP/AICD * Per his note: "Assuming a hemodynamic event (documentation and evolution unavailable) a bradyarrhythmia (Lozoya Jimenez attack) is a possibility in a setting of a baseline conduction defect; the mild increase in serum potassium is likely incidental or may have a tangential effect on myocardial conduction; * Preserved LV function argues against a ventricular arrhythmia * If hypoglycemia and a primary neurological events are discounted, would exclude myocardial ischemia as a trigger for a ventricular arrhythmia. * If the grafted coronaries are not obstructive, options include an EP study, followed by a device implant (ICD /pacemaker/Loop recorder)" * on admission; required epi/cpr * ED spoke with Interventional cardiology: no cath at time of admission; admitted to the ICU * Echo 07/10 shows Moderately calcified aortic valve, Grade I - abnormal relaxation patter, EF > 70% * Patient is pending cardiac cath-->will need to f/u cardiology when to scheduled in order to coordinate with EP-cardiology * Per EP-->avoid conduction odell stresors * CT angio ruled out PE 3) Seizure * Neurology (Dr. Cortes) on the case--> help appreciated * CT head negative; no TPA per neurology * CTA of the head showed moderate to significant stenosis left carotid bifurcation and left ICA. There are stenotic changes also seen involving both cavernous carotid arteries right greater than the left. There is no evidence of occlusion of the extracranial or intracranial arterial circulation. There is no evidence of large aneurysm nor vascular malformation. * Repeat CT scan of the head done 07/11/2017 showed no acute intracranial hemorrhage. Mild chronic white matter ischemic changes with scattered bilateral basal nuclei a lacunar type infarcts. Moderate generalized volume loss * EEG: metabolic encephalopathy w/o seizure * Keppra 500mg Q12h * Cartiod duplex: negative 4) Unsteady gait, weakness * PT eval and treat--> Recommending SONJA * Fall precautions 5) Agitation * seroquel 25mg HS 6) History of CAD s/p CABG * CABG was 3 years ago in 2014; patient had f/u cardiac cath which were noted to be cleared * Will need to f/u cardiology in regards to cath given EP request * ASA 81mg PO daily * Plavix 75mg PO daily * Patient's outpatient political research scientist: Dr. Segura * Losartan 50mg PO daily * Avoid calcium channel, digoxin, Av odell until EP workup * Crestor 10mg POqHS 7) Diabetes * A1C 7.1 on 07/10/17 * Accuechecks QAC and HS * Regular insulin sliding scale * Hypoglycemia protocol 8) Uncontrolled Hypertension * Losartan 50mg PO daily * Increased Hydralazine 50mg PO TID 9) Leukocytosis * likely reactive secondary to cardiac arrest and respiratory failure * infectious etology ruled out * Blood (07/10): no growth X 5days X2 * Urine culture (07/11) negative 10) Anemia * Iron Studies reveal Iron Deficiency Anemia * Ferrlecit started 11) Prophylactic measures * Fall precautions * seizure precautions * Protonix 40mg Iv daily * Heparin 5000units subq8H Disposition: will need to f/u with cardiology to determine to schedule cardiac cath in order to EP to start their workup DW Audra Porter DO, PGY-1 <Cristiana Shepard V - Last Filed: 07/18/17 12:55> Objective - Vital Signs/Intake and Output Vital Signs (last 24 hours): Temp Pulse Resp BP Pulse Ox 98 F 71 20 156/78 H 99 07/17/17 07:30 07/17/17 16:14 07/17/17 07:30 07/17/17 07:30 07/17/17 07:30 Intake and Output: 07/17/17 07/17/17 06:59 18:59 Intake Total 500 Output Total 550 Balance -50 - Medications Medications: Current Medications Acetaminophen (Tylenol 650mg/20.3ml Solution Ud) 650 mg PO Q6H PRN PRN Reason: Temp 100.4 or Greater. Albuterol/Ipratropium (Duoneb 3 Mg/0.5 Mg (3 Ml) Ud) 3 ml INH RQ4 PRN PRN Reason: Shortness of Breath Aspirin (Ecotrin) 81 mg PO DAILY [facility] Last Admin: 07/17/17 09:12 Dose: 81 mg Clopidogrel Bisulfate (Plavix) 75 mg PO DAILY [facility] Last Admin: 07/17/17 09:12 Dose: 75 mg Dextrose (Dextrose 50% Inj) 0 ml IVP .STAT PRN; Protocol PRN Reason: Hypoglycemia Protocol Dextrose (Glutose 15) 0 gm PO .ONCE PRN; Protocol PRN Reason: Hypoglycemia Protocol Famotidine (Pepcid) 20 mg PO BID [facility] Ferric Sodium Gluconate Complex (Ferrlecit) 125 mg IVPB DAILY [facility] Stop: 07/25/17 13:01 Last Admin: 07/17/17 13:25 Dose: 125 mg Glucagon (Glucagen Diagnostic Kit) 0 mg IM .STAT PRN; Protocol PRN Reason: Hypoglycemia Protocol Heparin Sodium (Porcine) (Heparin) 5,000 units SC Q8 [facility] Last Admin: 07/17/17 13:25 Dose: 5,000 units Hydralazine HCl (Apresoline) 50 mg PO Q8H [facility] Last Admin: 07/17/17 17:42 Dose: 50 mg Levetiracetam 500 mg/ Sodium (Chloride) 105 mls @ 420 mls/hr IVPB Q12H [facility] Last Admin: 07/17/17 09:12 Dose: 420 mls/hr Dextrose (Dextrose 5% In Water 1000 Ml) 1,000 mls @ 0 mls/hr IV .Q0M PRN; Protocol; Per Protocol PRN Reason: Hypoglycemia Protocol Insulin Human Regular (Novolin R) 0 unit SC ACHS [facility] PRN Reason: Protocol Last Admin: 07/17/17 16:31 Dose: Not Given Losartan Potassium (Cozaar) 50 mg PO DAILY [facility] Last Admin: 07/17/17 09:12 Dose: 50 mg Quetiapine Fumarate (Seroquel) 25 mg PO [facility] Last Admin: 07/16/17 22:17 Dose: 25 mg Rosuvastatin Calcium (Crestor) 10 mg PO [facility] - Labs Labs: 07/17/17 06:32 07/17/17 06:32 PT 15.3 SECONDS (9.7-12.2) H 07/12/17 05:59 INR 1.4 07/12/17 05:59 APTT 75 SECONDS (21-34) H D 07/12/17 05:59 Attending/Attestation - Attestation I have personally seen and examined this patient.: Yes I have fully participated in the care of the patient.: Yes I have reviewed all pertinent clinical information, including history, physical exam and plan: Yes Notes (Text): Patient seen, examined, and case discussed with day-time resident. patient seen this morning with his son Otis at bedside. Patient overnight was a Code [place], requiring security to come, required two doses of Ativan 1mg IVX1 each, 1:1, was not following commands. patient is responsive at bedside, mildly confused, but speaking things to the son that do not make sense. On the telemetry, there is no episodes of bradycardia noted overnight. Patient has a tentative plan with cardiology for cardiac cath for Wednesday; we will need to confirm with Dr. Marvin for cath on Wednesday prior to EP workup with Dr. Morgan. Please advise if any event overnight, please call the son, Otis Nettles. Assessment/Plan 1) Acute Respiratory Failure * Intubated in the field on admission * Extubated on 07/13/17 * Transferred out from ICU 2) Cardiac Arrest Complete Heart Block Bradyarrhytmia * Monitor on telemetry * Cardiology (Dr. Ledbetter) on case help appreciated * Dr. Marvin is covering while he is away * Cardiology-EPS (Dr. Morgan) on case help appreciated * Asking for cardiac cath to see if related to obstructive coronaries prior to EP/AICD * Per his note: "Assuming a hemodynamic event (documentation and evolution unavailable) a bradyarrhythmia (Lozoya Jimenez attack) is a possibility in a setting of a baseline conduction defect; the mild increase in serum potassium is likely incidental or may have a tangential effect on myocardial conduction; * Preserved LV function argues against a ventricular arrhythmia * If hypoglycemia and a primary neurological events are discounted, would exclude myocardial ischemia as a trigger for a ventricular arrhythmia. * If the grafted coronaries are not obstructive, options include an EP study, followed by a device implant (ICD /pacemaker/Loop recorder)" * on admission; required epi/cpr * ED spoke with Interventional cardiology: no cath at time of admission; admitted to the ICU * Echo 07/10 shows Moderately calcified aortic valve, Grade I - abnormal relaxation patter, EF > 70% * Patient is pending cardiac cath-->will need to f/u cardiology when to scheduled in order to coordinate with EP-cardiology * Per EP-->avoid conduction odell stresors * CT angio ruled out PE 3) Seizure * Neurology (Dr. Cortes) on the case-->help appreciated * CT head negative; no TPA per neurology * CTA of the head showed moderate to significant stenosis left carotid bifurcation and left ICA. There are stenotic changes also seen involving both cavernous carotid arteries right greater than the left. There is no evidence of occlusion of the extracranial or intracranial arterial circulation. There is no evidence of large aneurysm nor vascular malformation. * Repeat CT scan of the head done 07/11/2017 showed no acute intracranial hemorrhage. Mild chronic white matter ischemic changes with scattered bilateral basal nuclei a lacunar type infarcts. Moderate generalized volume loss * EEG: metabolic encephalopathy w/o seizure * Keppra 500mg Q12h * Cartiod duplex: negative 4) Unsteady gait, weakness * PT eval and treat-->Recommending SONJA * Fall precautions 5) Agitation * seroquel 25mg HS 6) History of CAD s/p CABG * CABG was 3 years ago in 2014; patient had f/u cardiac cath which were noted to be cleared * Will need to f/u cardiology in regards to cath given EP request * ASA 81mg PO daily * Plavix 75mg PO daily * Patient's outpatient political research scientist: Dr. Segura * Losartan 50mg PO daily * Avoid calcium channel, digoxin, Av odell until EP workup * Crestor 10mg POqHS 7) Diabetes * A1C 7.1 on 07/10/17 * Accuechecks QAC and HS * Regular insulin sliding scale * Hypoglycemia protocol 8) Uncontrolled Hypertension * Losartan 50mg PO daily * Increase Hydralazine 50mg PO TID 9) Leukocytosis * likely reactive secondary to cardiac arrest and respiratory failure * infectious etiology ruled out * Blood (07/10): no growth X 5days X2 * Urine culture (07/11) negative 10) Anemia * Will check ferritin, iron studies, b12, folate, reti count 11) Prophylactic measures * Fall precautions * seizure precautions * Protonix 40mg Iv daily * Heparin 5000units subq8H Disposition: will need to f/u with cardiology to determine to schedule cardiac cath in order to EP to start their workup
[2017-07-17] MEDS ORDERED: Ferric Sodium Gluconat Complex 62.5 mg/5 ml Vial IVPB SCH (13:00)
[2017-07-18] MEDS: (Novolin R) Insulin Human Regular 100 units/ml vial SC SCH ×4 (08:28→22:47)
--- NOTE | 2017-07-18 09:09 | CP.PCM.PN ---
Subjective - Date & Time of Evaluation Date of Evaluation: 07/18/17 Time of Evaluation: 09:00 - Subjective Subjective: patient is altered. he is not answering my questions this morning. Objective - Vital Signs/Intake and Output Vital Signs (last 24 hours): Temp Pulse Resp BP Pulse Ox 98.4 F 73 20 188/94 H 96 07/18/17 08:08 07/18/17 08:08 07/18/17 08:08 07/18/17 08:08 07/18/17 08:08 - Medications Medications: Current Medications Acetaminophen (Tylenol 650mg/20.3ml Solution Ud) 650 mg PO Q6H PRN PRN Reason: Temp 100.4 or Greater. Albuterol/Ipratropium (Duoneb 3 Mg/0.5 Mg (3 Ml) Ud) 3 ml INH RQ4 PRN PRN Reason: Shortness of Breath Aspirin (Ecotrin) 81 mg PO DAILY [facility] Last Admin: 07/17/17 09:12 Dose: 81 mg Clopidogrel Bisulfate (Plavix) 75 mg PO DAILY [facility] Last Admin: 07/17/17 09:12 Dose: 75 mg Dextrose (Dextrose 50% Inj) 0 ml IVP .STAT PRN; Protocol PRN Reason: Hypoglycemia Protocol Dextrose (Glutose 15) 0 gm PO .ONCE PRN; Protocol PRN Reason: Hypoglycemia Protocol Famotidine (Pepcid) 20 mg PO BID [facility] Ferric Sodium Gluconate Complex (Ferrlecit) 125 mg IVPB DAILY [facility] Stop: 07/25/17 13:01 Last Admin: 07/17/17 13:25 Dose: 125 mg Glucagon (Glucagen Diagnostic Kit) 0 mg IM .STAT PRN; Protocol PRN Reason: Hypoglycemia Protocol Heparin Sodium (Porcine) (Heparin) 5,000 units SC Q8 [facility] Last Admin: 07/18/17 05:16 Dose: 5,000 units Hydralazine HCl (Apresoline) 50 mg PO Q8H [facility] Last Admin: 07/18/17 01:48 Dose: 50 mg Levetiracetam 500 mg/ Sodium (Chloride) 105 mls @ 420 mls/hr IVPB Q12H [facility] Last Admin: 07/17/17 21:18 Dose: 420 mls/hr Dextrose (Dextrose 5% In Water 1000 Ml) 1,000 mls @ 0 mls/hr IV .Q0M PRN; Protocol; Per Protocol PRN Reason: Hypoglycemia Protocol Insulin Human Regular (Novolin R) 0 unit SC ACHS [facility] PRN Reason: Protocol Last Admin: 07/18/17 08:28 Dose: 2 unit Losartan Potassium (Cozaar) 50 mg PO DAILY [facility] Last Admin: 07/18/17 08:29 Dose: 50 mg Quetiapine Fumarate (Seroquel) 25 mg PO HS [facility] Last Admin: 07/17/17 21:19 Dose: Not Given Rosuvastatin Calcium (Crestor) 10 mg PO HS [facility] Last Admin: 07/17/17 21:18 Dose: 10 mg - Labs Labs: 07/17/17 06:32 07/17/17 06:32 PT 15.3 SECONDS (9.7-12.2) H 07/12/17 05:59 INR 1.4 07/12/17 05:59 APTT 75 SECONDS (21-34) H D 07/12/17 05:59 - Constitutional Appears: Non-toxic - Head Exam Head Exam: NORMAL INSPECTION - Eye Exam Eye Exam: Normal appearance - ENT Exam ENT Exam: Mucous Membranes Moist - Neck Exam Neck Exam: Full ROM - Respiratory Exam Respiratory Exam: Decreased Breath Sounds - Cardiovascular Exam Cardiovascular Exam: REGULAR RHYTHM - GI/Abdominal Exam GI & Abdominal Exam: Normal Bowel Sounds - Rectal Exam Rectal Exam: Deferred - Extremities Exam Extremities Exam: absent: Pedal Edema - Back Exam Back Exam: NORMAL INSPECTION - Neurological Exam Neurological Exam: Alert - Psychiatric Exam Psychiatric exam: Normal Affect - Skin Skin Exam: Normal Color Assessment and Plan (1) Cardiac arrest Assessment & Plan: unclear etiology. patient will benefit from cardiac cath. appears altered and not able to consent. will have to discuss risks and benefits with patient's son. Status: Acute
--- NOTE | 2017-07-18 09:30 | CP.PCM.PN ---
<Audra Danielle - Last Filed: 07/18/17 09:28> Subjective - Date & Time of Evaluation Date of Evaluation: 07/18/17 Time of Evaluation: 09:00 - Subjective Subjective: Medicine Note for Hospitalist- Dr. Shepard Patient was and seen and examined at bedside. Last night patient was agitated, seroquel 25mg x 2 doses was given. He removed his IV access. Currently he is still altered. ROS unattainable. Objective - Vital Signs/Intake and Output Vital Signs (last 24 hours): Temp Pulse Resp BP Pulse Ox 98.4 F 73 20 188/94 H 96 07/18/17 08:08 07/18/17 08:08 07/18/17 08:08 07/18/17 08:08 07/18/17 08:08 - Medications Medications: Current Medications Acetaminophen (Tylenol 650mg/20.3ml Solution Ud) 650 mg PO Q6H PRN PRN Reason: Temp 100.4 or Greater. Albuterol/Ipratropium (Duoneb 3 Mg/0.5 Mg (3 Ml) Ud) 3 ml INH RQ4 PRN PRN Reason: Shortness of Breath Aspirin (Ecotrin) 81 mg PO DAILY [facility] Last Admin: 07/17/17 09:12 Dose: 81 mg Clopidogrel Bisulfate (Plavix) 75 mg PO DAILY [facility] Last Admin: 07/17/17 09:12 Dose: 75 mg Dextrose (Dextrose 50% Inj) 0 ml IVP .STAT PRN; Protocol PRN Reason: Hypoglycemia Protocol Dextrose (Glutose 15) 0 gm PO .ONCE PRN; Protocol PRN Reason: Hypoglycemia Protocol Famotidine (Pepcid) 20 mg PO BID [facility] Glucagon (Glucagen Diagnostic Kit) 0 mg IM .STAT PRN; Protocol PRN Reason: Hypoglycemia Protocol Heparin Sodium (Porcine) (Heparin) 5,000 units SC Q8 [facility] Last Admin: 07/18/17 05:16 Dose: 5,000 units Hydralazine HCl (Apresoline) 50 mg PO Q8H [facility] Last Admin: 07/18/17 01:48 Dose: 50 mg Dextrose (Dextrose 5% In Water 1000 Ml) 1,000 mls @ 0 mls/hr IV .Q0M PRN; Protocol; Per Protocol PRN Reason: Hypoglycemia Protocol Insulin Human Regular (Novolin R) 0 unit SC ACHS [facility] PRN Reason: Protocol Last Admin: 07/18/17 08:28 Dose: 2 unit Levetiracetam (Keppra) 500 mg PO BID [facility] Losartan Potassium (Cozaar) 50 mg PO DAILY [facility] Last Admin: 07/18/17 09:20 Dose: Not Given Quetiapine Fumarate (Seroquel) 25 mg PO [facility] Last Admin: 07/17/17 21:19 Dose: Not Given Rosuvastatin Calcium (Crestor) 10 mg PO HS [facility] Last Admin: 07/17/17 21:18 Dose: 10 mg - Labs Labs: 07/17/17 06:32 07/17/17 06:32 PT 15.3 SECONDS (9.7-12.2) H 07/12/17 05:59 INR 1.4 07/12/17 05:59 APTT 75 SECONDS (21-34) H D 07/12/17 05:59 - Additional Findings Additional findings: - Constitutional Appears: Non-toxic, No Acute Distress - Head Exam Head Exam: ATRAUMATIC, NORMOCEPHALIC - Eye Exam Eye Exam: Normal appearance, PERRL - ENT Exam ENT Exam: Mucous Membranes Moist - Neck Exam Neck Exam: Normal Inspection - Respiratory Exam Respiratory Exam: Clear to Ausculation Bilateral, NORMAL BREATHING PATTERN. absent: Respiratory Distress - Cardiovascular Exam Cardiovascular Exam: +S1, +S2 - GI/Abdominal Exam GI & Abdominal Exam: Soft, Normal Bowel Sounds. absent: Tenderness - Extremities Exam Extremities Exam: Normal Inspection - Neurological Exam Neurological Exam: Alert, Awake, Oriented x3 - Psychiatric Exam Psychiatric exam: Normal Affect, Normal Mood - Skin Skin Exam: Dry, Warm Assessment and Plan - Assessment and Plan (Free Text) Plan: 1) Acute Respiratory Failure * Intubated in the field on admission * Extubated on 07/13/17 * Transferred out from ICU 2) Cardiac Arrest Complete Heart Block Bradyarrhytmia * Monitor on telemetry * Cardiology (Dr. Ledbetter) on case help appreciated * Dr. Marvin is covering while he is away * Cardiology-EPS (Dr. Morgan) on case help appreciated * Asking for cardiac cath to see if related to obstructive coronaries prior to EP/AICD * Per his note: "Assuming a hemodynamic event (documentation and evolution unavailable) a bradyarrhythmia (Lozoya Jimenez attack) is a possibility in a setting of a baseline conduction defect; the mild increase in serum potassium is likely incidental or may have a tangential effect on myocardial conduction; * Preserved LV function argues against a ventricular arrhythmia * If hypoglycemia and a primary neurological events are discounted, would exclude myocardial ischemia as a trigger for a ventricular arrhythmia. * If the grafted coronaries are not obstructive, options include an EP study, followed by a device implant (ICD /pacemaker/Loop recorder)" * on admission; required epi/cpr * ED spoke with Interventional cardiology: no cath at time of admission; admitted to the ICU * Echo 07/10 shows Moderately calcified aortic valve, Grade I - abnormal relaxation patter, EF > 70% * Patient is pending cardiac cath-->will need to f/u cardiology when to scheduled in order to coordinate with EP-cardiology * Per EP-->avoid conduction odell stresors * CT angio ruled out PE 3) Seizure * Neurology (Dr. Cortes) on the case--> help appreciated * CT head negative; no TPA per neurology * CTA of the head showed moderate to significant stenosis left carotid bifurcation and left ICA. There are stenotic changes also seen involving both cavernous carotid arteries right greater than the left. There is no evidence of occlusion of the extracranial or intracranial arterial circulation. There is no evidence of large aneurysm nor vascular malformation. * Repeat CT scan of the head done 07/11/2017 showed no acute intracranial hemorrhage. Mild chronic white matter ischemic changes with scattered bilateral basal nuclei a lacunar type infarcts. Moderate generalized volume loss * EEG: metabolic encephalopathy w/o seizure * Keppra 500mg Q12h * Cartiod duplex: negative 4) Unsteady gait, weakness * PT eval and treat--> Recommending SONJA * Fall precautions 5) Agitation * seroquel 25mg HS 6) History of CAD s/p CABG * CABG was 3 years ago in 2014; patient had f/u cardiac cath which were noted to be cleared * Will need to f/u cardiology in regards to cath given EP request * ASA 81mg PO daily * Plavix 75mg PO daily * Patient's outpatient bakeshop cleaner: Dr. Segura * Losartan 50mg PO daily * Avoid calcium channel, digoxin, Av odell until EP workup * Crestor 10mg POqHS 7) Diabetes * A1C 7.1 on 07/10/17 * Accuechecks QAC and HS * Regular insulin sliding scale * Hypoglycemia protocol 8) Uncontrolled Hypertension * Losartan 50mg PO daily * Increased Hydralazine 50mg PO TID 9) Leukocytosis * likely reactive secondary to cardiac arrest and respiratory failure * infectious etology ruled out * Blood (07/10): no growth X 5days X2 * Urine culture (07/11) negative 10) Anemia * Iron Studies reveal Iron Deficiency Anemia * Ferrlecit started 11) Prophylactic measures * Fall precautions * seizure precautions * Protonix 40mg Iv daily * Heparin 5000units subq8H Disposition: will need to f/u with cardiology to determine to schedule cardiac cath in order to EP to start their workup DW Dr. Shepard, Audra Danielle DO, PGY-1 <Cristiana Shepard V - Last Filed: 07/18/17 13:04> Objective - Vital Signs/Intake and Output Vital Signs (last 24 hours): Temp Pulse Resp BP Pulse Ox 98.4 F 80 20 176/71 H 96 07/18/17 08:08 07/18/17 11:06 07/18/17 08:08 07/18/17 11:06 07/18/17 08:08 - Medications Medications: Current Medications Acetaminophen (Tylenol 650mg/20.3ml Solution Ud) 650 mg PO Q6H PRN PRN Reason: Temp 100.4 or Greater. Albuterol/Ipratropium (Duoneb 3 Mg/0.5 Mg (3 Ml) Ud) 3 ml INH RQ4 PRN PRN Reason: Shortness of Breath Amlodipine Besylate (Norvasc) 5 mg PO DAILY [facility] Last Admin: 07/18/17 10:54 Dose: 5 mg Aspirin (Ecotrin) 81 mg PO DAILY [facility] Last Admin: 07/18/17 10:54 Dose: 81 mg Clopidogrel Bisulfate (Plavix) 75 mg PO DAILY [facility] Last Admin: 07/18/17 10:54 Dose: 75 mg Dextrose (Dextrose 50% Inj) 0 ml IVP .STAT PRN; Protocol PRN Reason: Hypoglycemia Protocol Dextrose (Glutose 15) 0 gm PO .ONCE PRN; Protocol PRN Reason: Hypoglycemia Protocol Famotidine (Pepcid) 20 mg PO BID [facility] Last Admin: 07/18/17 10:54 Dose: 20 mg Glucagon (Glucagen Diagnostic Kit) 0 mg IM .STAT PRN; Protocol PRN Reason: Hypoglycemia Protocol Heparin Sodium (Porcine) (Heparin) 5,000 units SC Q8 [facility] Last Admin: 07/18/17 05:16 Dose: 5,000 units Hydralazine HCl (Apresoline) 75 mg PO Q8H [facility] Last Admin: 07/18/17 10:54 Dose: 75 mg Dextrose (Dextrose 5% In Water 1000 Ml) 1,000 mls @ 0 mls/hr IV .Q0M PRN; Protocol; Per Protocol PRN Reason: Hypoglycemia Protocol Insulin Human Regular (Novolin R) 0 unit SC ACHS [facility] PRN Reason: Protocol Last Admin: 07/18/17 12:15 Dose: Not Given Levetiracetam (Keppra) 500 mg PO BID [facility] Last Admin: 07/18/17 10:56 Dose: 500 mg Losartan Potassium (Cozaar) 50 mg PO DAILY [facility] Last Admin: 07/18/17 09:20 Dose: Not Given Quetiapine Fumarate (Seroquel) 25 mg PO [facility] Last Admin: 07/17/17 21:19 Dose: Not Given Rosuvastatin Calcium (Crestor) 10 mg PO [facility] Last Admin: 07/17/17 21:18 Dose: 10 mg - Labs Labs: 07/18/17 11:18 07/18/17 11:18 PT 15.3 SECONDS (9.7-12.2) H 07/12/17 05:59 INR 1.4 07/12/17 05:59 APTT 75 SECONDS (21-34) H D 07/12/17 05:59 Attending/Attestation - Attestation I have personally seen and examined this patient.: Yes I have fully participated in the care of the patient.: Yes I have reviewed all pertinent clinical information, including history, physical exam and plan: Yes Notes (Text): Patient seen, examined, and case discussed with day-time resident. patient seen this morning with his Nurse, Nesha assisting in translation. Patient was agitated over night. Patient given additional dose of Seroquel and Ativan 1mg IV X1. Patient also pulled out his IV access. I do suspect element of sun-downing while he is at the hospital. Patient's frame of reference is his son, Otis. Patient is very upset and wants to go home. We have explain to him that he will need cardiac cath because we need to find out why he had a cardiac arrest. Patient is very upset and yelling. Cardiology will touch base with patient's son , Otis for consent for cardiac cath. Will continue the 1:1 for behavior disturbance. Patient for cardiac cath with Dr. Marvin on Wednesday; pending result should be follow-up with Dr. Morgan: EP. Patient's blood pressure uncontrolled, and influenced by his agitation. Will add Norvasc 5mg PO daily and increase Hydralazine 75mg PO Q8H. Please see patient with auth specialist. Assessment/Plan 1) Acute Respiratory Failure * Intubated in the field on admission * Extubated on 07/13/17 * Transferred out from ICU 2) Cardiac Arrest Complete Heart Block Bradyarrhytmia * Monitor on telemetry * Cardiology (Dr. Ledbetter) on case help appreciated * Dr. Marvin is covering while he is away * Cardiology-EPS (Dr. Morgan) on case help appreciated * Asking for cardiac cath to see if related to obstructive coronaries prior to EP/AICD * Per his note: "Assuming a hemodynamic event (documentation and evolution unavailable) a bradyarrhythmia (Lozoya Jimenez attack) is a possibility in a setting of a baseline conduction defect; the mild increase in serum potassium is likely incidental or may have a tangential effect on myocardial conduction; * Preserved LV function argues against a ventricular arrhythmia * If hypoglycemia and a primary neurological events are discounted, would exclude myocardial ischemia as a trigger for a ventricular arrhythmia. * If the grafted coronaries are not obstructive, options include an EP study, followed by a device implant (ICD /pacemaker/Loop recorder)" * on admission; required epi/cpr * ED spoke with Interventional cardiology: no cath at time of admission; admitted to the ICU * Echo 07/10 shows Moderately calcified aortic valve, Grade I - abnormal relaxation patter, EF > 70% * Patient is pending cardiac cath-->will need to f/u cardiology when to scheduled in order to coordinate with EP-cardiology * Per EP-->avoid conduction odell stresors * CT angio ruled out PE 3) Seizure * Neurology (Dr. Cortes) on the case-->help appreciated * CT head negative; no TPA per neurology * CTA of the head showed moderate to significant stenosis left carotid bifurcation and left ICA. There are stenotic changes also seen involving both cavernous carotid arteries right greater than the left. There is no evidence of occlusion of the extracranial or intracranial arterial circulation. There is no evidence of large aneurysm nor vascular malformation. * Repeat CT scan of the head done 07/11/2017 showed no acute intracranial hemorrhage. Mild chronic white matter ischemic changes with scattered bilateral basal nuclei a lacunar type infarcts. Moderate generalized volume loss * EEG: metabolic encephalopathy w/o seizure * Keppra 500mg PO Q12h * Cartiod duplex: negative 4) Unsteady gait, weakness * PT eval and treat-->Recommending SONJA * Fall precautions 5) Agitation * seroquel 25mg HS 6) History of CAD s/p CABG * CABG was 3 years ago in 2014; patient had f/u cardiac cath which were noted to be cleared * Will need to f/u cardiology in regards to cath given EP request * ASA 81mg PO daily * Plavix 75mg PO daily * Patient's outpatient bakeshop cleaner: Dr. Segura * Losartan 50mg PO daily * Avoid calcium channel, digoxin, Av odell until EP workup * Crestor 10mg POqHS 7) Diabetes * A1C 7.1 on 07/10/17 * Accuechecks QAC and HS * Regular insulin sliding scale * Hypoglycemia protocol 8) Uncontrolled Hypertension * Losartan 50mg PO daily * Increase Hydralazine 75mg PO TID * Start Norvasc 5mg PO daily 9) Leukocytosis-->normalized * likely reactive secondary to cardiac arrest and respiratory failure * infectious etiology ruled out * Blood (07/10): no growth X 5days X2 * Urine culture (07/11) negative 10) Anemia * low iron, low iron saturation * normal folate, normal b12 * Reticulocyte count: elevated * Normal ferritin 11) Prophylactic measures * Fall precautions * seizure precautions * Protonix 40mg Iv daily * Heparin 5000units subq8H * Otis Nettles: Son's phone ) Disposition: Patient to have cardiac cath tomorrow with Dr. Marvin (Covering for Dr. Ledbetter); Consent to obtain from patient's son Otis.
[2017-07-18] MEDS ORDERED: levETIRAcetam 100 mg/ml (5ml) Oral Syringe PO SCH (10:00)
[2017-07-18 11:34] LABS: BASO # 0.1 K/uL (0.0-0.2); BASO % 1.3 % (0.0-2.0); EOS # 0.5 K/uL (0.0-0.7); EOS % 7.5 % (0.0-4.0); HEMOGLOBIN 9.9 g/dL (12.0-18.0); LYMPH # 1.6 K/uL (1.0-4.3); LYMPH % 23.2 % (20.0-40.0); MEAN CELL VOLUME 77.3 fL (80.0-94.0); MEAN CORPUSCULAR HEMOGLOBIN 24.3 pg (27.0-31.0); MEAN CORPUSCULAR HGB CONC 31.5 g/dL (33.0-37.0); MEAN PLATELET VOLUME 9.1 fL (7.2-11.7); MONO # 0.6 K/uL (0.0-0.8); MONO % 8.5 % (0.0-10.0); NEUT % 59.5 % (50.0-75.0); NRBC % 0.1 % (0.0-2.0); RBC 4.05 Mil/uL (4.40-5.90); RED CELL DISTRIBUTION WIDTH 20.6 % (11.5-14.5); WHITE BLOOD COUNT 6.7 K/uL (4.8-10.8)
[2017-07-18 11:52] LABS: ALBUMIN 3.5 g/dL (3.5-5.0); ALT/SGPT 23 U/L (21-72); AST/SGOT 32 U/L (17-59); BLOOD UREA NITROGEN 7 mg/dL (9-20); CALCIUM 9.2 mg/dl (8.6-10.4); GFR AFRICAN-AMERICAN > 60; GFR NON-AFRICAN AMERICAN > 60
--- NOTE | 2017-07-19 07:32 | CP.PCM.PN ---
Subjective - Date & Time of Evaluation Date of Evaluation: 07/19/17 Time of Evaluation: 07:30 - Subjective Subjective: Mr. Nettles was seen and examined at the bedside. He is awake, able to appropiately answer few questions, but is confused and restless. He moves all extremities spontaneusly and keeps on repeating his history of heart surgery. He remains on 1:1 sitter for patient safety. There was no untoward events overnight. Objective - Vital Signs/Intake and Output Vital Signs (last 24 hours): Temp Pulse Resp BP Pulse Ox 98 F 92 H 20 186/78 H 100 07/18/17 23:25 07/19/17 03:59 07/18/17 23:25 07/19/17 02:56 07/18/17 23:25 Intake and Output: 07/19/17 07/19/17 06:59 18:59 Intake Total 320 Output Total 200 Balance 120 - Medications Medications: Current Medications Acetaminophen (Tylenol 650mg/20.3ml Solution Ud) 650 mg PO Q6H PRN PRN Reason: Temp 100.4 or Greater. Albuterol/Ipratropium (Duoneb 3 Mg/0.5 Mg (3 Ml) Ud) 3 ml INH RQ4 PRN PRN Reason: Shortness of Breath Amlodipine Besylate (Norvasc) 5 mg PO DAILY [facility] Last Admin: 07/18/17 10:54 Dose: 5 mg Aspirin (Ecotrin) 81 mg PO DAILY [facility] Last Admin: 07/18/17 10:54 Dose: 81 mg Clopidogrel Bisulfate (Plavix) 75 mg PO DAILY [facility] Last Admin: 07/18/17 10:54 Dose: 75 mg Dextrose (Dextrose 50% Inj) 0 ml IVP .STAT PRN; Protocol PRN Reason: Hypoglycemia Protocol Dextrose (Glutose 15) 0 gm PO .ONCE PRN; Protocol PRN Reason: Hypoglycemia Protocol Famotidine (Pepcid) 20 mg PO BID [facility] Last Admin: 07/18/17 18:31 Dose: 20 mg Glucagon (Glucagen Diagnostic Kit) 0 mg IM .STAT PRN; Protocol PRN Reason: Hypoglycemia Protocol Heparin Sodium (Porcine) (Heparin) 5,000 units SC Q8 [facility] Last Admin: 07/18/17 14:58 Dose: Not Given Hydralazine HCl (Apresoline) 75 mg PO Q8H [facility] Last Admin: 07/19/17 02:56 Dose: 75 mg Dextrose (Dextrose 5% In Water 1000 Ml) 1,000 mls @ 0 mls/hr IV .Q0M PRN; Protocol; Per Protocol PRN Reason: Hypoglycemia Protocol Valproate Sodium 1,000 mg/ (Sodium Chloride) 110 mls @ 0 mls/hr IVPB ONCE ONE PRN Reason: Per Protocol Stop: 07/19/17 07:27 Insulin Human Regular (Novolin R) 0 unit SC ACHS [facility] PRN Reason: Protocol Last Admin: 07/18/17 22:47 Dose: Not Given Losartan Potassium (Cozaar) 50 mg PO DAILY [facility] Last Admin: 07/18/17 09:20 Dose: Not Given Quetiapine Fumarate (Seroquel) 25 mg PO HS [facility] Last Admin: 07/18/17 21:10 Dose: 25 mg Rosuvastatin Calcium (Crestor) [address] [facility] Last Admin: 07/18/17 21:09 Dose: 10 mg Valproate Sodium (Depakene Oral Soln) 500 mg PO Q12 [facility] - Labs Labs: 07/18/17 11:18 07/18/17 11:18 PT 15.3 SECONDS (9.7-12.2) H 07/12/17 05:59 INR 1.4 07/12/17 05:59 APTT 75 SECONDS (21-34) H D 07/12/17 05:59 - Constitutional Appears: No Acute Distress - Head Exam Head Exam: NORMAL INSPECTION - Eye Exam Pupil Exam: PERRL - Neurological Exam Neurological Exam: Altered, Awake Neuro motor strength exam: Left Upper Extremity: 4, Right Upper Extremity: 4, Left Lower Extremity: 4, Right Lower Extremity: 4 Additional comments: Confused, moves all extremities spontaneously. Assessment and Plan (1) Seizure Assessment & Plan: Case discussed with Dr. Boykin, continue all current medical regimen. Recommend changing AED from keppra to depakote to alleviate some of his confusion. Recommend MRI of the brain without contrast to evaluate etiology of confusion. Status: Acute
[2017-07-19] MEDS: (Novolin R) Insulin Human Regular 100 units/ml vial SC SCH ×4 (07:52→21:03)
[2017-07-19] MEDS ORDERED: Valproate 1,000 MG in Sodium Chloride 0.9% 100 ML IVPB ONE (08:00)
[2017-07-19 08:06] LABS: BASO # 0.1 K/uL (0.0-0.2); BASO % 1.2 % (0.0-2.0); EOS # 0.5 K/uL (0.0-0.7); EOS % 6.7 % (0.0-4.0); HEMOGLOBIN 10.7 g/dL (12.0-18.0); LYMPH % 14.3 % (20.0-40.0); MEAN CELL VOLUME 77.6 fL (80.0-94.0); MEAN CORPUSCULAR HEMOGLOBIN 24.7 pg (27.0-31.0); MEAN CORPUSCULAR HGB CONC 31.9 g/dL (33.0-37.0); MEAN PLATELET VOLUME 8.7 fL (7.2-11.7); MONO # 0.4 K/uL (0.0-0.8); MONO % 5.8 % (0.0-10.0); NEUT # 4.9 K/uL (1.8-7.0); NRBC % 0.1 % (0.0-2.0); RBC 4.34 Mil/uL (4.40-5.90); RED CELL DISTRIBUTION WIDTH 20.9 % (11.5-14.5); WHITE BLOOD COUNT 6.9 K/uL (4.8-10.8)
[2017-07-19 09:06] LABS: ALBUMIN 3.8 g/dL (3.5-5.0); ALT/SGPT 19 U/L (21-72); AST/SGOT 28 U/L (17-59); BLOOD UREA NITROGEN 9 mg/dL (9-20); CALCIUM 9.5 mg/dl (8.6-10.4); GFR AFRICAN-AMERICAN > 60; GFR NON-AFRICAN AMERICAN > 60
--- NOTE | 2017-07-19 10:40 | CP.PCM.PN ---
Subjective - Date & Time of Evaluation Date of Evaluation: 07/19/17 Time of Evaluation: 09:20 - Subjective Subjective: Patient seen and examined at bedside. Overnight patient had an episode of agitation and a dose of Ativan had to be given. Currently patient is resting comfortably on the chair. Patient is altered. He denies having fever, headache, shortness of breath, chest pain, nausea, or vomiting. Objective - Vital Signs/Intake and Output Vital Signs (last 24 hours): Temp Pulse Resp BP Pulse Ox 98 F 93 H 20 180/67 H 96 07/19/17 08:10 07/19/17 08:10 07/19/17 08:10 07/19/17 08:10 07/19/17 08:10 Intake and Output: 07/19/17 07/19/17 06:59 18:59 Intake Total 320 Output Total 200 Balance 120 - Medications Medications: Current Medications Acetaminophen (Tylenol 650mg/20.3ml Solution Ud) 650 mg PO Q6H PRN PRN Reason: Temp 100.4 or Greater. Albuterol/Ipratropium (Duoneb 3 Mg/0.5 Mg (3 Ml) Ud) 3 ml INH RQ4 PRN PRN Reason: Shortness of Breath Amlodipine Besylate (Norvasc) 5 mg PO DAILY [facility] Last Admin: 07/19/17 09:31 Dose: 5 mg Aspirin (Ecotrin) 81 mg PO DAILY [facility] Last Admin: 07/19/17 09:31 Dose: 81 mg Clopidogrel Bisulfate (Plavix) 75 mg PO DAILY [facility] Last Admin: 07/19/17 09:31 Dose: 75 mg Dextrose (Dextrose 50% Inj) 0 ml IVP .STAT PRN; Protocol PRN Reason: Hypoglycemia Protocol Dextrose (Glutose 15) 0 gm PO .ONCE PRN; Protocol PRN Reason: Hypoglycemia Protocol Famotidine (Pepcid) 20 mg PO BID [facility] Last Admin: 07/19/17 09:31 Dose: 20 mg Glucagon (Glucagen Diagnostic Kit) 0 mg IM .STAT PRN; Protocol PRN Reason: Hypoglycemia Protocol Heparin Sodium (Porcine) (Heparin) 5,000 units SC Q8 [facility] Last Admin: 07/18/17 14:58 Dose: Not Given Hydralazine HCl (Apresoline) 75 mg PO Q8H [facility] Last Admin: 07/19/17 09:31 Dose: 75 mg Dextrose (Dextrose 5% In Water 1000 Ml) 1,000 mls @ 0 mls/hr IV .Q0M PRN; Protocol; Per Protocol PRN Reason: Hypoglycemia Protocol Insulin Human Regular (Novolin R) 0 unit SC ACHS [facility] PRN Reason: Protocol Last Admin: 07/19/17 07:52 Dose: Not Given Losartan Potassium (Cozaar) 50 mg PO DAILY [facility] Last Admin: 07/19/17 09:31 Dose: 50 mg Quetiapine Fumarate (Seroquel) 25 mg PO HS [facility] Last Admin: 07/18/17 21:10 Dose: 25 mg Rosuvastatin Calcium (Crestor) 10 mg PO HS [facility] Last Admin: 07/18/17 21:09 Dose: 10 mg Valproate Sodium (Depakene Oral Soln) 500 mg PO Q12 [facility] - Labs Labs: 07/19/17 07:58 07/19/17 07:58 PT 15.3 SECONDS (9.7-12.2) H 07/12/17 05:59 INR 1.4 07/12/17 05:59 APTT 75 SECONDS (21-34) H D 07/12/17 05:59 - Additional Findings Additional findings: - Constitutional Appears: Non-toxic, No Acute Distress - Head Exam Head Exam: ATRAUMATIC, NORMOCEPHALIC - Eye Exam Eye Exam: Normal appearance, PERRL - ENT Exam ENT Exam: Mucous Membranes Moist - Neck Exam Neck Exam: Normal Inspection - Respiratory Exam Respiratory Exam: Clear to Ausculation Bilateral, NORMAL BREATHING PATTERN. absent: Respiratory Distress - Cardiovascular Exam Cardiovascular Exam: +S1, +S2 - GI/Abdominal Exam GI & Abdominal Exam: Soft, Normal Bowel Sounds. absent: Tenderness - Extremities Exam Extremities Exam: Normal Inspection - Neurological Exam Neurological Exam: Alert, Awake, Oriented x3 - Psychiatric Exam Psychiatric exam: Normal Affect, Normal Mood - Skin Skin Exam: Dry, Warm Assessment and Plan - Assessment and Plan (Free Text) Assessment: 1) Acute Respiratory Failure * Intubated in the field on admission * Extubated on 07/13/17 * Transferred out from ICU 2) Cardiac Arrest Complete Heart Block Bradyarrhytmia * Monitor on telemetry * Cardiology (Dr. Ledbetter) on case help appreciated * Dr. Marvin is covering while he is away * Cardiology-EPS (Dr. Morgan) on case help appreciated * Asking for cardiac cath to see if related to obstructive coronaries prior to EP/AICD * Per his note: "Assuming a hemodynamic event (documentation and evolution unavailable) a bradyarrhythmia (Lozoya Jimenez attack) is a possibility in a setting of a baseline conduction defect; the mild increase in serum potassium is likely incidental or may have a tangential effect on myocardial conduction; * Preserved LV function argues against a ventricular arrhythmia * If hypoglycemia and a primary neurological events are discounted, would exclude myocardial ischemia as a trigger for a ventricular arrhythmia. * If the grafted coronaries are not obstructive, options include an EP study, followed by a device implant (ICD /pacemaker/Loop recorder)" * on admission; required epi/cpr * ED spoke with Interventional cardiology: no cath at time of admission; admitted to the ICU * Echo 07/10 shows Moderately calcified aortic valve, Grade I - abnormal relaxation patter, EF > 70% * Per EP-->avoid conduction odell stresors * Cardiac cath to be performed by Dr. López * Case discussed with Dr. Morgan, will speak to family member about pacemaker placement vs other options 3) Seizure * Neurology (Dr. Cortes) on the case--> help appreciated * CT head negative; no TPA per neurology * CTA of the head showed moderate to significant stenosis left carotid bifurcation and left ICA. There are stenotic changes also seen involving both cavernous carotid arteries right greater than the left. There is no evidence of occlusion of the extracranial or intracranial arterial circulation. There is no evidence of large aneurysm nor vascular malformation. * Repeat CT scan of the head done 07/11/2017 showed no acute intracranial hemorrhage. Mild chronic white matter ischemic changes with scattered bilateral basal nuclei a lacunar type infarcts. Moderate generalized volume loss * EEG: metabolic encephalopathy w/o seizure * Discontinue Keppra 500mg Q12h and start Depakote 500mg Q12 * Cartiod duplex: negative 4) Unsteady gait, weakness * PT eval and treat--> Recommending SONJA * Fall precautions 5) Alterd mental status, Agitation * seroquel 25mg HS * MRI brain shows no acute separate brain infarction. No mass effect or intracranial hemorrhage (see full report) * Discontinue Keppra 500mg Q12h and start Depakote 500mg Q12 due to confusion 6) History of CAD s/p CABG * CABG was 3 years ago in 2014; patient had f/u cardiac cath which were noted to be cleared * ASA 81mg PO daily * Plavix 75mg PO daily * Patient's outpatient director of epidemiology: Dr. Segura * Losartan 50mg PO daily * Avoid calcium channel, digoxin, Av odell until EP workup * Crestor 10mg POqHS 7) Diabetes * A1C 7.1 on 07/10/17 * Accuechecks QAC and HS * Regular insulin sliding scale * Hypoglycemia protocol 8) Uncontrolled Hypertension * Losartan 50mg PO daily * Increased Hydralazine 50mg PO TID 9) Leukocytosis, improved * likely reactive secondary to cardiac arrest and respiratory failure * infectious etology ruled out * Blood (07/10): no growth X 5days X2 * Urine culture (07/11) negative 10) Anemia * Iron Studies reveal Iron Deficiency Anemia * Ferrlecit started 11) Prophylactic measures * Fall precautions * seizure precautions * Protonix 40mg Iv daily * Heparin 5000units subq8H Disposition: Pending EP workup/pacemaker/LifeVest
--- NOTE | 2017-07-19 12:13 | MRI ---
PROCEDURE: MRI BRAIN WITHOUT CONTRAST HISTORY: change of mental status COMPARISON: Unenhanced head CT 07/11/2017. TECHNIQUE: Multiplanar, multisequence MR images of the brain were obtained without intravenous contrast enhancement. FINDINGS: Motion artifacts significantly limit the interpretation of this examination. HEMORRHAGE: None DWI: No evidence of an acute or early subacute infarction. BRAIN PARENCHYMA: Diffuse cerebral atrophy chronic microangiopathy appear reiterated as well as a prominent cisterna magna or arachnoid cyst at the inferior midline posterior fossa. Dilated perivascular spaces are seen at the bilateral basal ganglia with underlying chronic lacunes not excluded bilaterally. No mass effect or suspicious extra-axial fluid collection is grossly evident. Chronic microangiopathy is seen in the marquita with the posterior fossa parenchyma otherwise unremarkable. VENTRICLES: Unremarkable. No hydrocephalus. CRANIUM: Unremarkable. ORBITS: Grossly unremarkable. PARANASAL SINUSES/MASTOIDS: Clear VASCULAR SYSTEM: Skull base flow voids intact. OTHER FINDINGS: None. IMPRESSION: No definite acute separate brain infarction. No mass effect or intracranial hemorrhage appreciated. Age related neuro degenerative changes are identified as discussed above.
[2017-07-19] MEDS ORDERED: Lidocaine Hydrochloride 5 ML INJ ONE (13:48)
[2017-07-19] MEDS ORDERED: Iodixanol 320 MG/ML 200 ML BOTTLE IV ONE (13:48)
[2017-07-19] MEDS ORDERED: Midazolam 2 MG/2 ML VIAL ONE (13:48)
[2017-07-19] MEDS ORDERED: Iodixanol 320 MG/ML 100 ML BOTTLE IV ONE ×2 (13:49→14:44)
[2017-07-19] MEDS ORDERED: Lidocaine 2% MPF (5 ml) Inj ONE (13:55)
[2017-07-19] MEDS: Valproic Acid 250 mg/5 ml UD Cup PO SCH ×2 (14:34→21:30)
--- NOTE | 2017-07-19 15:26 | CP.PCM.PN ---
Subjective - Date & Time of Evaluation Date of Evaluation: 07/19/17 Time of Evaluation: 15:18 - Subjective Subjective: cath performed. Objective - Vital Signs/Intake and Output Vital Signs (last 24 hours): Temp Pulse Resp BP Pulse Ox 98 F 93 H 20 180/67 H 96 07/19/17 08:10 07/19/17 08:10 07/19/17 08:10 07/19/17 08:10 07/19/17 08:10 Intake and Output: 07/19/17 07/19/17 06:59 18:59 Intake Total 320 Output Total 200 Balance 120 - Medications Medications: Current Medications Acetaminophen (Tylenol 650mg/20.3ml Solution Ud) 650 mg PO Q6H PRN PRN Reason: Temp 100.4 or Greater. Albuterol/Ipratropium (Duoneb 3 Mg/0.5 Mg (3 Ml) Ud) 3 ml INH RQ4 PRN PRN Reason: Shortness of Breath Amlodipine Besylate (Norvasc) 5 mg PO DAILY [facility] Last Admin: 07/19/17 09:31 Dose: 5 mg Aspirin (Ecotrin) 81 mg PO DAILY [facility] Last Admin: 07/19/17 09:31 Dose: 81 mg Clopidogrel Bisulfate (Plavix) 75 mg PO DAILY [facility] Last Admin: 07/19/17 09:31 Dose: 75 mg Dextrose (Dextrose 50% Inj) 0 ml IVP .STAT PRN; Protocol PRN Reason: Hypoglycemia Protocol Dextrose (Glutose 15) 0 gm PO .ONCE PRN; Protocol PRN Reason: Hypoglycemia Protocol Famotidine (Pepcid) 20 mg PO BID [facility] Last Admin: 07/19/17 09:31 Dose: 20 mg Glucagon (Glucagen Diagnostic Kit) 0 mg IM .STAT PRN; Protocol PRN Reason: Hypoglycemia Protocol Heparin Sodium (Porcine) (Heparin) 5,000 units SC Q8 [facility] Last Admin: 07/18/17 14:58 Dose: Not Given Hydralazine HCl (Apresoline) 75 mg PO Q8H [facility] Last Admin: 07/19/17 09:31 Dose: 75 mg Dextrose (Dextrose 5% In Water 1000 Ml) 1,000 mls @ 0 mls/hr IV .Q0M PRN; Protocol; Per Protocol PRN Reason: Hypoglycemia Protocol Insulin Human Regular (Novolin R) 0 unit SC ACHS [facility] PRN Reason: Protocol Last Admin: 07/19/17 12:34 Dose: Not Given Losartan Potassium (Cozaar) 50 mg PO DAILY [facility] Last Admin: 07/19/17 09:31 Dose: 50 mg Quetiapine Fumarate (Seroquel) 25 mg PO HS [facility] Last Admin: 07/18/17 21:10 Dose: 25 mg Rosuvastatin Calcium (Crestor) 10 mg PO HS [facility] Last Admin: 07/18/17 21:09 Dose: 10 mg Valproate Sodium (Depakene Oral Soln) 500 mg PO Q12 [facility] Last Admin: 07/19/17 14:34 Dose: Not Given - Labs Labs: 07/19/17 07:58 07/19/17 07:58 PT 15.3 SECONDS (9.7-12.2) H 07/12/17 05:59 INR 1.4 07/12/17 05:59 APTT 75 SECONDS (21-34) H D 07/12/17 05:59 Assessment and Plan (1) CAD (coronary artery disease) Status: Acute (2) S/P CABG x 2 Status: Acute (3) S/P right coronary artery (RCA) stent placement Status: Acute - Assessment and Plan (Free Text) Plan: TCO OF DISTAL LM GARRIDO TO LAD PATENT. LAD HAS A 80% STENOSIS JUST DISTAL TO TOUCHDOWN SVG TO OM1 OM2 AND DIAG IS WIDELY PATENT RCA - PATENT PROX STENT, 30% STENOSIS DISTAL TO STENT. 90% STENOSIS OF RPDA OSTIAL. SMALL CALIBER VESSEL.
[2017-07-19] MEDS ORDERED: Iohexol 350mg/ml 100 ML ONE (16:22)
[2017-07-19] MEDS ORDERED: Sodium Chloride 0.45% 1,000 ML IV SCH (16:30)
[2017-07-20 06:27] LABS: BASO # 0.1 K/uL (0.0-0.2); EOS # 0.4 K/uL (0.0-0.7); EOS % 5.2 % (0.0-4.0); HEMOGLOBIN 10.4 g/dL (12.0-18.0); LYMPH # 1.5 K/uL (1.0-4.3); MEAN CELL VOLUME 77.5 fL (80.0-94.0); MEAN CORPUSCULAR HEMOGLOBIN 24.5 pg (27.0-31.0); MEAN CORPUSCULAR HGB CONC 31.7 g/dL (33.0-37.0); MEAN PLATELET VOLUME 8.1 fL (7.2-11.7); MONO # 0.8 K/uL (0.0-0.8); MONO % 9.3 % (0.0-10.0); NEUT # 5.5 K/uL (1.8-7.0); NEUT % 66.5 % (50.0-75.0); NRBC % 0.1 % (0.0-2.0); RBC 4.22 Mil/uL (4.40-5.90); RED CELL DISTRIBUTION WIDTH 21.2 % (11.5-14.5); WHITE BLOOD COUNT 8.3 K/uL (4.8-10.8)
[2017-07-20] MEDS: (Novolin R) Insulin Human Regular 100 units/ml vial SC SCH ×4 (07:23→21:30)
[2017-07-20 07:45] LABS: ALBUMIN 3.3 g/dL (3.5-5.0); BLOOD UREA NITROGEN 15 mg/dL (9-20); CALCIUM 9.4 mg/dl (8.6-10.4); GFR AFRICAN-AMERICAN > 60; GFR NON-AFRICAN AMERICAN 58
[2017-07-20 07:46] LABS: ALT/SGPT 23 U/L (21-72); AST/SGOT 25 U/L (17-59)
[2017-07-20] MEDS: Valproic Acid 250 mg/5 ml UD Cup PO SCH ×2 (09:32→21:30)
--- NOTE | 2017-07-20 09:59 | CP.PCM.PN ---
Subjective - Date & Time of Evaluation Date of Evaluation: 07/20/17 Time of Evaluation: 09:58 - Subjective Subjective: PGY-[address] Rea's Service: Pt seen and examined at bedside. Nursing reports no acute events overnight. Pt s /p cardiac cath yesterday. Pt found resting comfortably in bed with CP at bedside. Patient denied any episodes of chest pain, SOB, or palpitations overnight. CP stated patient was not agitated on his time. Objective - Vital Signs/Intake and Output Vital Signs (last 24 hours): Temp Pulse Resp BP Pulse Ox 98.4 F 86 20 99/60 L 97 07/20/17 07:00 07/20/17 07:00 07/20/17 07:00 07/20/17 07:00 07/20/17 07:00 - Medications Medications: Current Medications Acetaminophen (Tylenol 650mg/20.3ml Solution Ud) 650 mg PO Q6H PRN PRN Reason: Temp 100.4 or Greater. Last Admin: 07/20/17 09:26 Dose: 650 mg Albuterol/Ipratropium (Duoneb 3 Mg/0.5 Mg (3 Ml) Ud) 3 ml INH RQ4 PRN PRN Reason: Shortness of Breath Amlodipine Besylate (Norvasc) 5 mg PO DAILY [facility] Last Admin: 07/20/17 09:34 Dose: Not Given Aspirin (Ecotrin) 81 mg PO DAILY [facility] Last Admin: 07/20/17 09:32 Dose: 81 mg Clopidogrel Bisulfate (Plavix) 75 mg PO DAILY [facility] Last Admin: 07/20/17 09:32 Dose: 75 mg Dextrose (Dextrose 50% Inj) 0 ml IVP .STAT PRN; Protocol PRN Reason: Hypoglycemia Protocol Dextrose (Glutose 15) 0 gm PO .ONCE PRN; Protocol PRN Reason: Hypoglycemia Protocol Famotidine (Pepcid) 20 mg PO BID [facility] Last Admin: 07/20/17 09:32 Dose: 20 mg Glucagon (Glucagen Diagnostic Kit) 0 mg IM .STAT PRN; Protocol PRN Reason: Hypoglycemia Protocol Heparin Sodium (Porcine) (Heparin) 5,000 units SC Q8 [facility] Last Admin: 07/18/17 14:58 Dose: Not Given Hydralazine HCl (Apresoline) 75 mg PO Q8H [facility] Last Admin: 07/20/17 02:15 Dose: 75 mg Dextrose (Dextrose 5% In Water 1000 Ml) 1,000 mls @ 0 mls/hr IV .Q0M PRN; Protocol; Per Protocol PRN Reason: Hypoglycemia Protocol Insulin Human Regular (Novolin R) 0 unit SC ACHS [facility] PRN Reason: Protocol Last Admin: 07/20/17 07:23 Dose: Not Given Losartan Potassium (Cozaar) 50 mg PO DAILY [facility] Last Admin: 07/20/17 09:32 Dose: 50 mg Quetiapine Fumarate (Seroquel) 25 mg PO HS [facility] Last Admin: 07/19/17 21:30 Dose: 25 mg Rosuvastatin Calcium (Crestor) 10 mg PO HS [facility] Last Admin: 07/19/17 21:30 Dose: 10 mg Valproate Sodium (Depakene Oral Soln) 500 mg PO Q12 [facility] Last Admin: 07/20/17 09:32 Dose: 500 mg - Labs Labs: 07/20/17 06:20 07/20/17 06:20 PT 15.3 SECONDS (9.7-12.2) H 07/12/17 05:59 INR 1.4 07/12/17 05:59 APTT 75 SECONDS (21-34) H D 07/12/17 05:59 - Additional Findings Additional findings: - Constitutional Appears: Non-toxic, No Acute Distress - Head Exam Head Exam: ATRAUMATIC, NORMOCEPHALIC - Eye Exam Eye Exam: Normal appearance, PERRL - ENT Exam ENT Exam: Mucous Membranes Moist - Neck Exam Neck Exam: Normal Inspection - Respiratory Exam Respiratory Exam: Clear to Ausculation Bilateral, NORMAL BREATHING PATTERN. absent: Respiratory Distress - Cardiovascular Exam Cardiovascular Exam: +S1, +S2 - GI/Abdominal Exam GI & Abdominal Exam: Soft, Normal Bowel Sounds. absent: Tenderness - Extremities Exam Extremities Exam: Normal Inspection - Neurological Exam Neurological Exam: Alert, Awake, Oriented x3 - Psychiatric Exam Psychiatric exam: Normal Affect, Normal Mood - Skin Skin Exam: Dry, Warm Assessment and Plan - Assessment and Plan (Free Text) Plan: Cardiac Arrest Complete Heart Block Bradyarrhytmia * Monitor on telemetry * Cardiology (Dr. Ledbetter) on case help appreciated * Dr. Marvin is covering while he is away * Cardiology-EPS (Dr. Morgan) on case help appreciated * Asking for cardiac cath to see if related to obstructive coronaries prior to EP/AICD * Per his note: "Assuming a hemodynamic event (documentation and evolution unavailable) a bradyarrhythmia (Lozoya Jimenez attack) is a possibility in a setting of a baseline conduction defect; the mild increase in serum potassium is likely incidental or may have a tangential effect on myocardial conduction; * Preserved LV function argues against a ventricular arrhythmia * If hypoglycemia and a primary neurological events are discounted, would exclude myocardial ischemia as a trigger for a ventricular arrhythmia. * If the grafted coronaries are not obstructive, options include an EP study, followed by a device implant (ICD /pacemaker/Loop recorder)" * on admission; required epi/cpr * ED spoke with Interventional cardiology: no cath at time of admission; admitted to the ICU * Echo 07/10 shows Moderately calcified aortic valve, Grade I - abnormal relaxation patter, EF > 70% * Per EP-->avoid conduction odell stresors * Cardiac performed by Dr. López: see below in CAD plan * Case discussed with Dr. Morgan, will speak to family member about pacemaker placement vs other options CAD s/p CABG * CABG was 3 years ago in 2014; patient had f/u cardiac cath which were noted to be cleared * Cardiac Cath (07/19/17): LAD 80% stenosis (just distal to touchdown per DR. López), RCA proximal stented, 30% stenosis distal to stent, 90% stenosis RPDA * Per DR. Morgan, cardiology note he discussed treatment plan with patient family (three sons) and is awaiting their decision * ASA 81mg PO daily * Plavix 75mg PO daily * Losartan 50mg PO daily * Avoid calcium channel, digoxin, Av odell until EP workup * Crestor 10mg POqHS Acute Respiratory Failure * Intubated in the field on admission * Extubated on 07/13/17 * Transferred out from ICU Seizure * Neurology (Dr. Cortes) on the case--> help appreciated * CT head negative; no TPA per neurology * CTA of the head showed moderate to significant stenosis left carotid bifurcation and left ICA. There are stenotic changes also seen involving both cavernous carotid arteries right greater than the left. There is no evidence of occlusion of the extracranial or intracranial arterial circulation. There is no evidence of large aneurysm nor vascular malformation. * Repeat CT scan of the head done 07/11/2017 showed no acute intracranial hemorrhage. Mild chronic white matter ischemic changes with scattered bilateral basal nuclei a lacunar type infarcts. Moderate generalized volume loss * EEG: metabolic encephalopathy w/o seizure * Discontinue Keppra 500mg Q12h and start Depakote 500mg Q12 * Cartiod duplex: negative Unsteady gait, weakness * PT eval and treat--> Recommending SONJA * Fall precautions Alterd mental status, Agitation * seroquel 25mg HS * MRI brain shows no acute separate brain infarction. No mass effect or intracranial hemorrhage (see full report) * Discontinue Keppra 500mg Q12h and start Depakote 500mg Q12 due to confusion Diabetes * A1C 7.1 on 07/10/17 * Accuechecks QAC and HS * Regular insulin sliding scale * Hypoglycemia protocol Uncontrolled Hypertension * Losartan 50mg PO daily * Increased Hydralazine 50mg PO TID Leukocytosis, improved * likely reactive secondary to cardiac arrest and respiratory failure * infectious etology ruled out * Blood (07/10): no growth X 5days X2 * Urine culture (07/11) negative Anemia * Hgb stable 10.4 * Iron Studies reveal Iron Deficiency Anemia * Ferrlecit started Prophylactic measures * Fall precautions * seizure precautions * Protonix 40mg Iv daily * Heparin 5000units subq8H Disposition: Awaiting family decision on lifevest/pacemaker which will guide plan moving forward. José Luis Pathak PGY-2 D/w attending Dr. Rea
--- NOTE | 2017-07-20 15:08 | CP.PCM.PN ---
Subjective - Date & Time of Evaluation Date of Evaluation: 07/20/17 Time of Evaluation: 15:05 - Subjective Subjective: Chart reviewed Discussed at length with patients sons To brissa He was admitted with a history of "sudden unresponsiveness, left gaze preference , left hemiparesis"; initial rhythm unclear; during his transportation developed generalized seizures and was noted to be pulseless and in complete heart block which responded to atropine. Post admission a CT scan of the head did not show any acute changes. he regained consciousness; currentlyis intubated and sedated Hospital course: He was extubated, had persistent cognitive dysfunction; he was transferred to the floors; he underwent cardiac catheterization which showed some obstructive disease; he has remained arrhythmia free since admission with no active intervention Exam No distress Afebrile Normal venous pressures Faint left carotid bruit Midline chest scar PMI ? Normal heart sounds intensity No murmurs Abdomen:soft Extremities: no edema Responds; moves all four extremities; neck supple EKG: sinus; complete right bundle branch block, left fascicular block Tel: reviewed; PVC; couplets Echo: Normal LVEF; mild aortic sclerosis; diastolic dysfunction; normal RV dimensions Labs: K 5.6; microcytic anemia Objective - Vital Signs/Intake and Output Vital Signs (last 24 hours): Temp Pulse Resp BP Pulse Ox 98.4 F 104 H 20 99/60 L 97 07/20/17 07:00 07/20/17 08:00 07/20/17 07:00 07/20/17 07:00 07/20/17 07:00 Intake and Output: 07/20/17 07/20/17 06:59 18:59 Intake Total 160 Balance 160 - Medications Medications: Current Medications Acetaminophen (Tylenol 650mg/20.3ml Solution Ud) 650 mg PO Q6H PRN PRN Reason: Temp 100.4 or Greater. Last Admin: 07/20/17 09:26 Dose: 650 mg Albuterol/Ipratropium (Duoneb 3 Mg/0.5 Mg (3 Ml) Ud) 3 ml INH RQ4 PRN PRN Reason: Shortness of Breath Amlodipine Besylate (Norvasc) 5 mg PO DAILY [facility] Last Admin: 07/20/17 09:34 Dose: Not Given Aspirin (Ecotrin) 81 mg PO DAILY [facility] Last Admin: 07/20/17 09:32 Dose: 81 mg Clopidogrel Bisulfate (Plavix) 75 mg PO DAILY [facility] Last Admin: 07/20/17 09:32 Dose: 75 mg Dextrose (Dextrose 50% Inj) 0 ml IVP .STAT PRN; Protocol PRN Reason: Hypoglycemia Protocol Dextrose (Glutose 15) 0 gm PO .ONCE PRN; Protocol PRN Reason: Hypoglycemia Protocol Famotidine (Pepcid) 20 mg PO BID [facility] Last Admin: 07/20/17 09:32 Dose: 20 mg Glucagon (Glucagen Diagnostic Kit) 0 mg IM .STAT PRN; Protocol PRN Reason: Hypoglycemia Protocol Heparin Sodium (Porcine) (Heparin) 5,000 units SC Q8 [facility] Last Admin: 07/18/17 14:58 Dose: Not Given Hydralazine HCl (Apresoline) 75 mg PO Q8H [facility] Last Admin: 07/20/17 02:15 Dose: 75 mg Dextrose (Dextrose 5% In Water 1000 Ml) 1,000 mls @ 0 mls/hr IV .Q0M PRN; Protocol; Per Protocol PRN Reason: Hypoglycemia Protocol Insulin Human Regular (Novolin R) 0 unit SC ACHS [facility] PRN Reason: Protocol Last Admin: 07/20/17 13:26 Dose: 2 unit Losartan Potassium (Cozaar) 50 mg PO DAILY [facility] Last Admin: 07/20/17 09:32 Dose: 50 mg Quetiapine Fumarate (Seroquel) 25 mg PO HS [facility] Last Admin: 07/19/17 21:30 Dose: 25 mg Rosuvastatin Calcium (Crestor) 10 mg PO HS [facility] Last Admin: 07/19/17 21:30 Dose: 10 mg Valproate Sodium (Depakene Oral Soln) 500 mg PO Q12 [facility] Last Admin: 07/20/17 09:32 Dose: 500 mg - Labs Labs: 07/20/17 06:20 07/20/17 06:20 PT 15.3 SECONDS (9.7-12.2) H 07/12/17 05:59 INR 1.4 07/12/17 05:59 APTT 75 SECONDS (21-34) H D 07/12/17 05:59 Assessment and Plan - Assessment and Plan (Free Text) Assessment: Mr. Nettles presented with sudden transient unresponsiveness focal neurological deficits, seizures, complete heart block on a background of vascular risk factors, established vascular disease bifascicular conduction block The mechanism of transient loss of consciousness is unclear; Assuming a hemodynamic event (documentation and evolution unavailable) a bradyarrhythmia ( Lozoya Jimenez attack) is a possibility in a setting of a baseline conduction defect; the mild increase in serum potassium is likely incidental or may have a tangential effect on myocardial conduction Preserved LV function argues against a ventricular arrhythmia Hypoglycemia and neurological events do not seem to be primary drivers; cardiac cath showed obstructive lesions If coronary intervention is not planned I would assume an arrhythmia precipitated the index event; in absence of incomplete documentation options at this point include: 1> advanced directives and conservative management until neurological recovery with a small calculated risk of recurrence of syncope/arrhythmia/ 2> pacemaker implant and a life vest until neuro recovery and then an EP study 3> EP studies followed by a device contingent on the results (Ventricular tachycardia inducibility) either a pacemaker or an ICD I have discussed these issues with the patients family at length, they would discuss within themselves and arrive at a decision
[2017-07-21 06:56] LABS: BASO # 0.1 K/uL (0.0-0.2); BASO % 0.9 % (0.0-2.0); EOS # 0.4 K/uL (0.0-0.7); EOS % 5.3 % (0.0-4.0); HEMOGLOBIN 9.8 g/dL (12.0-18.0); LYMPH # 1.3 K/uL (1.0-4.3); LYMPH % 18.8 % (20.0-40.0); MEAN CELL VOLUME 77.7 fL (80.0-94.0); MEAN CORPUSCULAR HEMOGLOBIN 24.7 pg (27.0-31.0); MEAN CORPUSCULAR HGB CONC 31.8 g/dL (33.0-37.0); MEAN PLATELET VOLUME 8.4 fL (7.2-11.7); MONO # 0.6 K/uL (0.0-0.8); MONO % 9.4 % (0.0-10.0); NEUT # 4.4 K/uL (1.8-7.0); NEUT % 65.6 % (50.0-75.0); RBC 3.97 Mil/uL (4.40-5.90); RED CELL DISTRIBUTION WIDTH 21.6 % (11.5-14.5); WHITE BLOOD COUNT 6.8 K/uL (4.8-10.8)
[2017-07-21 07:38] LABS: ALB/GLOB RATIO 0.9 (1.0-2.1); ALBUMIN 3.2 g/dL (3.5-5.0); ALT/SGPT 21 U/L (21-72); AST/SGOT 26 U/L (17-59); BLOOD UREA NITROGEN 19 mg/dL (9-20); GFR AFRICAN-AMERICAN > 60; GFR NON-AFRICAN AMERICAN > 60
--- NOTE | 2017-07-21 08:13 | CP.PCM.PN ---
Subjective - Date & Time of Evaluation Date of Evaluation: 07/21/17 Time of Evaluation: 08:12 - Subjective Subjective: Mr. Nettles was seen and examined at the bedside. He is more alert, coherent, and denies any headache, dizziness, blurred vision, diplopia. He is able to follow simple commands and feed himself. He remains on 1:1 sitter for patient safety. MRI of the brain showed no definite acute separate brain infarction. No mass effect or intracranial hemorrhage appreciated. 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 Valproic level 49.6.There was no untoward events overnight. Objective - Vital Signs/Intake and Output Vital Signs (last 24 hours): Temp Pulse Resp BP Pulse Ox 98.3 F 98 H 20 170/69 H 99 07/20/17 23:00 07/21/17 04:14 07/20/17 23:00 07/20/17 23:00 07/20/17 23:00 Intake and Output: 07/21/17 07/21/17 06:59 18:59 Output Total 150 Balance -150 - Medications Medications: Current Medications Acetaminophen (Tylenol 650mg/20.3ml Solution Ud) 650 mg PO Q6H PRN PRN Reason: Temp 100.4 or Greater. Last Admin: 07/20/17 09:26 Dose: 650 mg Albuterol/Ipratropium (Duoneb 3 Mg/0.5 Mg (3 Ml) Ud) 3 ml INH RQ4 PRN PRN Reason: Shortness of Breath Amlodipine Besylate (Norvasc) 5 mg PO DAILY [facility] Last Admin: 07/20/17 09:34 Dose: Not Given Aspirin (Ecotrin) 81 mg PO DAILY [facility] Last Admin: 07/20/17 09:32 Dose: 81 mg Clopidogrel Bisulfate (Plavix) 75 mg PO DAILY [facility] Last Admin: 07/20/17 09:32 Dose: 75 mg Dextrose (Dextrose 50% Inj) 0 ml IVP .STAT PRN; Protocol PRN Reason: Hypoglycemia Protocol Dextrose (Glutose 15) 0 gm PO .ONCE PRN; Protocol PRN Reason: Hypoglycemia Protocol Famotidine (Pepcid) 20 mg PO BID [facility] Last Admin: 07/20/17 17:41 Dose: 20 mg Glucagon (Glucagen Diagnostic Kit) 0 mg IM .STAT PRN; Protocol PRN Reason: Hypoglycemia Protocol Heparin Sodium (Porcine) (Heparin) 5,000 units SC Q8 [facility] Last Admin: 07/18/17 14:58 Dose: Not Given Hydralazine HCl (Apresoline) 75 mg PO Q8H [facility] Last Admin: 07/21/17 02:05 Dose: 75 mg Dextrose (Dextrose 5% In Water 1000 Ml) 1,000 mls @ 0 mls/hr IV .Q0M PRN; Protocol; Per Protocol PRN Reason: Hypoglycemia Protocol Valproate Sodium 500 mg/ (Sodium Chloride) 105 mls @ 0 mls/hr IVPB ONCE ONE PRN Reason: Per Protocol Stop: 07/21/17 08:10 Insulin Human Regular (Novolin R) 0 unit SC ACHS [facility] PRN Reason: Protocol Last Admin: 07/20/17 21:30 Dose: Not Given Losartan Potassium (Cozaar) 50 mg PO DAILY [facility] Last Admin: 07/20/17 09:32 Dose: 50 mg Quetiapine Fumarate (Seroquel) 25 mg PO HS [facility] Last Admin: 07/20/17 21:29 Dose: 25 mg Rosuvastatin Calcium (Crestor) 10 mg PO HS [facility] Last Admin: 07/20/17 21:29 Dose: 10 mg Valproate Sodium (Depakene Oral Soln) 500 mg PO Q12 [facility] Last Admin: 07/20/17 21:30 Dose: 500 mg - Labs Labs: 07/21/17 06:49 07/21/17 06:49 PT 15.3 SECONDS (9.7-12.2) H 07/12/17 05:59 INR 1.4 07/12/17 05:59 APTT 75 SECONDS (21-34) H D 07/12/17 05:59 - Constitutional Appears: No Acute Distress - Head Exam Head Exam: NORMAL INSPECTION - Neurological Exam Neurological Exam: Alert, Awake, Oriented x3 Neuro motor strength exam: Left Upper Extremity: 4, Right Upper Extremity: 4, Left Lower Extremity: 4, Right Lower Extremity: 4 Additional comments: Neurological improved from previous examination, able to answer and participate in conversation and follows all commands. Assessment and Plan (1) Seizure Assessment & Plan: Case discussed with Dr. Boykin, continue all current medical, physical therapies. Recommend to follow up with either Dr. Cortes/ Ashutosh in [address] [place] [address] [place] [address] Tel. # [phone]. With valproic level 49,6, will load the patient for depakote 500 mg IVPB for one dose.Recommend valproic level prior to discharge. Status: Acute
[2017-07-21] MEDS: (Novolin R) Insulin Human Regular 100 units/ml vial SC SCH ×2 (08:17→13:14)
[2017-07-21] MEDS ORDERED: Valproate 500 MG in Sodium Chloride 0.9% 100 ML IVPB ONE (09:00)
--- NOTE | 2017-07-21 09:31 | CP.PCM.PN ---
Subjective - Date & Time of Evaluation Date of Evaluation: 07/21/17 Time of Evaluation: 09:29 - Subjective Subjective: PGY-[address] Rea's Service: Pt seen and examined at bedside. Nursing reports no acute events overnight. Had long conversation with son, Otis Coley, about plan of care regarding pacemaker insertion. From conversation it became clear son does not understand implications of decision. He thought pacemaker insertion was same as CABG. Placed call to Dr. Morgan's service to go over options to better explain to patient family. Patient with 1:1 in room; CP denies agitation. Denies chest pain , SOB, palpitations today. Objective - Vital Signs/Intake and Output Vital Signs (last 24 hours): Temp Pulse Resp BP Pulse Ox 98.2 F 90 20 114/63 97 07/21/17 09:17 07/21/17 09:17 07/21/17 09:17 07/21/17 09:17 07/21/17 09:17 Intake and Output: 07/21/17 07/21/17 06:59 18:59 Output Total 150 Balance -150 - Medications Medications: Current Medications Acetaminophen (Tylenol 650mg/20.3ml Solution Ud) 650 mg PO Q6H PRN PRN Reason: Temp 100.4 or Greater. Last Admin: 07/20/17 09:26 Dose: 650 mg Albuterol/Ipratropium (Duoneb 3 Mg/0.5 Mg (3 Ml) Ud) 3 ml INH RQ4 PRN PRN Reason: Shortness of Breath Amlodipine Besylate (Norvasc) 5 mg PO DAILY [facility] Last Admin: 07/20/17 09:34 Dose: Not Given Aspirin (Ecotrin) 81 mg PO DAILY [facility] Last Admin: 07/20/17 09:32 Dose: 81 mg Clopidogrel Bisulfate (Plavix) 75 mg PO DAILY [facility] Last Admin: 07/20/17 09:32 Dose: 75 mg Dextrose (Dextrose 50% Inj) 0 ml IVP .STAT PRN; Protocol PRN Reason: Hypoglycemia Protocol Dextrose (Glutose 15) 0 gm PO .ONCE PRN; Protocol PRN Reason: Hypoglycemia Protocol Famotidine (Pepcid) 20 mg PO BID [facility] Last Admin: 07/20/17 17:41 Dose: 20 mg Glucagon (Glucagen Diagnostic Kit) 0 mg IM .STAT PRN; Protocol PRN Reason: Hypoglycemia Protocol Heparin Sodium (Porcine) (Heparin) 5,000 units SC Q8 [facility] Last Admin: 07/18/17 14:58 Dose: Not Given Hydralazine HCl (Apresoline) 75 mg PO Q8H [facility] Last Admin: 07/21/17 02:05 Dose: 75 mg Dextrose (Dextrose 5% In Water 1000 Ml) 1,000 mls @ 0 mls/hr IV .Q0M PRN; Protocol; Per Protocol PRN Reason: Hypoglycemia Protocol Insulin Human Regular (Novolin R) 0 unit SC ACHS [facility] PRN Reason: Protocol Last Admin: 07/21/17 08:17 Dose: Not Given Losartan Potassium (Cozaar) 50 mg PO DAILY [facility] Last Admin: 07/20/17 09:32 Dose: 50 mg Quetiapine Fumarate (Seroquel) 25 mg PO HS [facility] Last Admin: 07/20/17 21:29 Dose: 25 mg Rosuvastatin Calcium (Crestor) 10 mg PO [facility] Last Admin: 07/20/17 21:29 Dose: 10 mg Valproate Sodium (Depakene Oral Soln) 500 mg PO Q12 [facility] Last Admin: 07/20/17 21:30 Dose: 500 mg - Labs Labs: 07/21/17 06:49 07/21/17 06:49 PT 15.3 SECONDS (9.7-12.2) H 07/12/17 05:59 INR 1.4 07/12/17 05:59 APTT 75 SECONDS (21-34) H D 07/12/17 05:59 - Additional Findings Additional findings: - Constitutional Appears: Non-toxic, No Acute Distress - Head Exam Head Exam: ATRAUMATIC, NORMOCEPHALIC - Eye Exam Eye Exam: Normal appearance, PERRL - ENT Exam ENT Exam: Mucous Membranes Moist - Neck Exam Neck Exam: Normal Inspection - Respiratory Exam Respiratory Exam: Clear to Ausculation Bilateral, NORMAL BREATHING PATTERN. absent: Respiratory Distress - Cardiovascular Exam Cardiovascular Exam: +S1, +S2 - GI/Abdominal Exam GI & Abdominal Exam: Soft, Normal Bowel Sounds. absent: Tenderness - Extremities Exam Extremities Exam: Normal Inspection - Neurological Exam Neurological Exam: Alert, Awake, Oriented x3 - Psychiatric Exam Psychiatric exam: Normal Affect, Normal Mood - Skin Skin Exam: Dry, Warm Assessment and Plan - Assessment and Plan (Free Text) Plan: Cardiac Arrest Complete Heart Block Bradyarrhytmia * Monitor on telemetry * Cardiology (Dr. Ledbetter) on case help appreciated * Dr. Marvin is covering while he is away * Cardiology-EPS (Dr. Morgan) on case help appreciated * Asking for cardiac cath to see if related to obstructive coronaries prior to EP/AICD * Per his note: "Assuming a hemodynamic event (documentation and evolution unavailable) a bradyarrhythmia (Lozoya Jimenez attack) is a possibility in a setting of a baseline conduction defect; the mild increase in serum potassium is likely incidental or may have a tangential effect on myocardial conduction; * Preserved LV function argues against a ventricular arrhythmia * If hypoglycemia and a primary neurological events are discounted, would exclude myocardial ischemia as a trigger for a ventricular arrhythmia. * If the grafted coronaries are not obstructive, options include an EP study, followed by a device implant (ICD /pacemaker/Loop recorder)" * on admission; required epi/cpr * ED spoke with Interventional cardiology: no cath at time of admission; admitted to the ICU * Echo 07/10 shows Moderately calcified aortic valve, Grade I - abnormal relaxation patter, EF > 70% * Per EP-->avoid conduction odell stresors * Cardiac performed by Dr. López: see below in CAD plan * Case discussed with Dr. Morgan, will speak to family member about pacemaker placement vs other options CAD s/p CABG * CABG was 3 years ago in 2014; patient had f/u cardiac cath which were noted to be cleared * Cardiac Cath (07/19/17): LAD 80% stenosis (just distal to touchdown per DR. López), RCA proximal stented, 30% stenosis distal to stent, 90% stenosis RPDA * Per DR. Morgan, cardiology note he discussed treatment plan with patient family (three sons) and is awaiting their decision * ASA 81mg PO daily * Plavix 75mg PO daily * Losartan 50mg PO daily * Avoid calcium channel, digoxin, Av odell until EP workup * Crestor 10mg POqHS Acute Respiratory Failure * Intubated in the field on admission * Extubated on 07/13/17 * Transferred out from ICU Seizure * Neurology (Dr. Cortes) on the case--> help appreciated * CT head negative; no TPA per neurology * CTA of the head showed moderate to significant stenosis left carotid bifurcation and left ICA. There are stenotic changes also seen involving both cavernous carotid arteries right greater than the left. There is no evidence of occlusion of the extracranial or intracranial arterial circulation. There is no evidence of large aneurysm nor vascular malformation. * Repeat CT scan of the head done 07/11/2017 showed no acute intracranial hemorrhage. Mild chronic white matter ischemic changes with scattered bilateral basal nuclei a lacunar type infarcts. Moderate generalized volume loss * EEG: metabolic encephalopathy w/o seizure * Discontinue Keppra 500mg Q12h and start Depakote 500mg Q12 * Cartiod duplex: negative Unsteady gait, weakness * PT eval and treat--> Recommending SONJA * Fall precautions Alterd mental status, Agitation * seroquel 25mg HS * MRI brain shows no acute separate brain infarction. No mass effect or intracranial hemorrhage (see full report) * Discontinue Keppra 500mg Q12h and start Depakote 500mg Q12 due to confusion Diabetes * A1C 7.1 on 07/10/17 * Accuchecks QAC and HS * Regular insulin sliding scale * Hypoglycemia protocol Uncontrolled Hypertension * Losartan 50mg PO daily * Increased Hydralazine 50mg PO TID Leukocytosis, improved * likely reactive secondary to cardiac arrest and respiratory failure * infectious etology ruled out * Blood (07/10): no growth X 5days X2 * Urine culture (07/11) negative Anemia * Hgb stable 10.4 * Iron Studies reveal Iron Deficiency Anemia * Ferrlecit started Prophylactic measures * Fall precautions * seizure precautions * Protonix 40mg Iv daily * Heparin 5000units subq8H Disposition: Spoke with son at bedside. Son seems unclear of options for further treatment. Have asked Dr. Morgan to clarify. José Luis Pathak PGY-2 D/w attending Dr. Rea
[2017-07-21] MEDS: Valproic Acid 250 mg/5 ml UD Cup PO SCH ×2 (10:11→21:08)
[2017-07-22 07:32] LABS: BASO % 0.7 % (0.0-2.0); EOS # 0.4 K/uL (0.0-0.7); EOS % 6.1 % (0.0-4.0); LYMPH # 1.4 K/uL (1.0-4.3); LYMPH % 25.1 % (20.0-40.0); MEAN CELL VOLUME 78.2 fL (80.0-94.0); MEAN PLATELET VOLUME 8.2 fL (7.2-11.7); MONO # 0.6 K/uL (0.0-0.8); MONO % 10.2 % (0.0-10.0); NEUT # 3.3 K/uL (1.8-7.0); NEUT % 57.9 % (50.0-75.0); NRBC % 0.1 % (0.0-2.0); RED CELL DISTRIBUTION WIDTH 22.6 % (11.5-14.5); WHITE BLOOD COUNT 5.8 K/uL (4.8-10.8)
[2017-07-22 07:54] LABS: ALBUMIN 3.3 g/dL (3.5-5.0); ALT/SGPT 9 U/L (21-72); AST/SGOT 31 U/L (17-59); BLOOD UREA NITROGEN 17 mg/dL (9-20); CALCIUM 8.8 mg/dl (8.6-10.4); GFR AFRICAN-AMERICAN > 60; GFR NON-AFRICAN AMERICAN > 60
[2017-07-22] MEDS: (Novolin R) Insulin Human Regular 100 units/ml vial SC SCH ×4 (07:59→21:01)
--- NOTE | 2017-07-22 08:08 | CP.PCM.PN ---
Subjective - Date & Time of Evaluation Date of Evaluation: 07/22/17 Time of Evaluation: 08:08 - Subjective Subjective: Mr. Nettles was seen and examined at the bedside. He is more alert, coherent, and denies any headache, dizziness, blurred vision, diplopia. He is able to follow simple commands and feed himself. He remains on 1:1 sitter for patient safety. MRI of the brain showed no definite acute separate brain infarction. No mass effect or intracranial hemorrhage appreciated. 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 Valproic level 89.7.There was no untoward events overnight. Objective - Vital Signs/Intake and Output Vital Signs (last 24 hours): Temp Pulse Resp BP Pulse Ox 98.6 F 91 H 20 120/67 98 07/21/17 23:25 07/22/17 04:00 07/21/17 23:25 07/21/17 23:25 07/21/17 23:25 Intake and Output: 07/22/17 07/22/17 06:59 18:59 Intake Total 30 Balance 30 - Medications Medications: Current Medications Acetaminophen (Tylenol 650mg/20.3ml Solution Ud) 650 mg PO Q6H PRN PRN Reason: Temp 100.4 or Greater. Last Admin: 07/20/17 09:26 Dose: 650 mg Albuterol/Ipratropium (Duoneb 3 Mg/0.5 Mg (3 Ml) Ud) 3 ml INH RQ4 PRN PRN Reason: Shortness of Breath Amlodipine Besylate (Norvasc) 5 mg PO DAILY [facility] Last Admin: 07/21/17 10:10 Dose: 5 mg Aspirin (Ecotrin) 81 mg PO DAILY [facility] Last Admin: 07/21/17 10:16 Dose: 81 mg Clopidogrel Bisulfate (Plavix) 75 mg PO DAILY [facility] Last Admin: 07/21/17 10:11 Dose: 75 mg Dextrose (Dextrose 50% Inj) 0 ml IVP .STAT PRN; Protocol PRN Reason: Hypoglycemia Protocol Dextrose (Glutose 15) 0 gm PO .ONCE PRN; Protocol PRN Reason: Hypoglycemia Protocol Famotidine (Pepcid) 20 mg PO BID [facility] Last Admin: 07/21/17 17:28 Dose: 20 mg Glucagon (Glucagen Diagnostic Kit) 0 mg IM .STAT PRN; Protocol PRN Reason: Hypoglycemia Protocol Heparin Sodium (Porcine) (Heparin) 5,000 units SC Q8 [facility] Last Admin: 07/18/17 14:58 Dose: Not Given Hydralazine HCl (Apresoline) 75 mg PO Q8H [facility] Last Admin: 07/22/17 02:35 Dose: 75 mg Insulin Human Regular (Novolin R) 0 unit SC ACHS [facility] PRN Reason: Protocol Last Admin: 07/22/17 07:59 Dose: 2 unit Losartan Potassium (Cozaar) 50 mg PO DAILY [facility] Last Admin: 07/21/17 10:11 Dose: 50 mg Quetiapine Fumarate (Seroquel) 25 mg PO HS [facility] Last Admin: 07/21/17 21:08 Dose: 25 mg Rosuvastatin Calcium (Crestor) 10 mg PO HS [facility] Last Admin: 07/21/17 21:08 Dose: 10 mg Valproate Sodium (Depakene Oral Soln) 500 mg PO Q12 [facility] Last Admin: 07/21/17 21:08 Dose: 500 mg - Labs Labs: 07/22/17 07:15 07/22/17 07:15 PT 15.3 SECONDS (9.7-12.2) H 07/12/17 05:59 INR 1.4 07/12/17 05:59 APTT 75 SECONDS (21-34) H D 07/12/17 05:59 - Constitutional Appears: No Acute Distress - Head Exam Head Exam: NORMAL INSPECTION - Neurological Exam Neurological Exam: Alert, Awake, Oriented x3 Neuro motor strength exam: Left Upper Extremity: 4, Right Upper Extremity: 4, Left Lower Extremity: 4, Right Lower Extremity: 4 Additional comments: Neurological unchanged from previous examination. Assessment and Plan (1) Seizure Assessment & Plan: Case discussed with Dr. Boykin, continue all current medical, physical therapies. Recommend to follow up with either Dr. Cortes/ Ashutosh in [address] [place] [address] [place] [address] Tel. # [phone]. Status: Acute
[2017-07-22] MEDS: Valproic Acid 250 mg/5 ml UD Cup PO SCH ×2 (09:33→21:29)
--- NOTE | 2017-07-22 10:09 | CP.PCM.PN ---
Subjective - Date & Time of Evaluation Date of Evaluation: 07/22/17 Time of Evaluation: 09:40 - Subjective Subjective: Progress Note for Dr. Rea Patient seen and examined at bedside. No acute events reported overnight. Per case management patient's son had agreed to subacute rehab at [place]. However, this afternoon patient's son Otis Coley demands his father to be transferred to [facility] for further cardiac workup in fear of sudden cardiac event. Case discussed with cardiology team, whom recommended patient to be transferred to [facility] under Dr. Madden ( receiving physician). Otherwise patient's mental status unchanged. Denies chest pain, SOB, or palpitations. Objective - Vital Signs/Intake and Output Vital Signs (last 24 hours): Temp Pulse Resp BP Pulse Ox 98.0 F 86 18 123/69 96 07/22/17 08:00 07/22/17 09:32 07/22/17 08:00 07/22/17 09:32 07/22/17 08:00 Intake and Output: 07/22/17 07/22/17 06:59 18:59 Intake Total 30 Balance 30 - Medications Medications: Current Medications Acetaminophen (Tylenol 650mg/20.3ml Solution Ud) 650 mg PO Q6H PRN PRN Reason: Temp 100.4 or Greater. Last Admin: 07/20/17 09:26 Dose: 650 mg Albuterol/Ipratropium (Duoneb 3 Mg/0.5 Mg (3 Ml) Ud) 3 ml INH RQ4 PRN PRN Reason: Shortness of Breath Amlodipine Besylate (Norvasc) 5 mg PO DAILY [facility] Last Admin: 07/22/17 09:33 Dose: 5 mg Aspirin (Ecotrin) 81 mg PO DAILY [facility] Last Admin: 07/22/17 09:34 Dose: 81 mg Clopidogrel Bisulfate (Plavix) 75 mg PO DAILY [facility] Last Admin: 07/22/17 09:34 Dose: 75 mg Dextrose (Dextrose 50% Inj) 0 ml IVP .STAT PRN; Protocol PRN Reason: Hypoglycemia Protocol Dextrose (Glutose 15) 0 gm PO .ONCE PRN; Protocol PRN Reason: Hypoglycemia Protocol Famotidine (Pepcid) 20 mg PO BID [facility] Last Admin: 07/22/17 09:34 Dose: 20 mg Glucagon (Glucagen Diagnostic Kit) 0 mg IM .STAT PRN; Protocol PRN Reason: Hypoglycemia Protocol Heparin Sodium (Porcine) (Heparin) 5,000 units SC Q8 [facility] Last Admin: 07/18/17 14:58 Dose: Not Given Hydralazine HCl (Apresoline) 75 mg PO Q8H [facility] Last Admin: 07/22/17 09:34 Dose: 75 mg Insulin Human Regular (Novolin R) 0 unit SC ACHS [facility] PRN Reason: Protocol Last Admin: 07/22/17 07:59 Dose: 2 unit Losartan Potassium (Cozaar) 50 mg PO DAILY [facility] Last Admin: 07/22/17 09:33 Dose: 50 mg Quetiapine Fumarate (Seroquel) 25 mg PO HS [facility] Last Admin: 07/21/17 21:08 Dose: 25 mg Rosuvastatin Calcium (Crestor) 10 mg PO HS [facility] Last Admin: 07/21/17 21:08 Dose: 10 mg Valproate Sodium (Depakene Oral Soln) 500 mg PO Q12 [facility] Last Admin: 07/22/17 09:33 Dose: 500 mg - Labs Labs: 07/22/17 07:15 07/22/17 07:15 PT 15.3 SECONDS (9.7-12.2) H 07/12/17 05:59 INR 1.4 07/12/17 05:59 APTT 75 SECONDS (21-34) H D 07/12/17 05:59 - Additional Findings Additional findings: - Constitutional Appears: Non-toxic, No Acute Distress - Head Exam Head Exam: ATRAUMATIC, NORMOCEPHALIC - Eye Exam Eye Exam: Normal appearance, PERRL - ENT Exam ENT Exam: Mucous Membranes Moist - Neck Exam Neck Exam: Normal Inspection - Respiratory Exam Respiratory Exam: Clear to Ausculation Bilateral, NORMAL BREATHING PATTERN. absent: Respiratory Distress - Cardiovascular Exam Cardiovascular Exam: +S1, +S2 - GI/Abdominal Exam GI & Abdominal Exam: Soft, Normal Bowel Sounds. absent: Tenderness - Extremities Exam Extremities Exam: Normal Inspection - Neurological Exam Neurological Exam: Alert, Awake, Oriented x3 - Psychiatric Exam Psychiatric exam: Normal Affect, Normal Mood - Skin Skin Exam: Dry, Warm Assessment and Plan - Assessment and Plan (Free Text) Assessment: Cardiac Arrest Complete Heart Block Bradyarrhytmia * Monitor on telemetry * Cardiology (Dr. Ledbetter) on case help appreciated * Dr. Marvin is covering while he is away * Cardiology-EPS (Dr. Morgan) on case help appreciated * Asking for cardiac cath to see if related to obstructive coronaries prior to EP/AICD * Per his note: "Assuming a hemodynamic event (documentation and evolution unavailable) a bradyarrhythmia (Lozoya Jimenez attack) is a possibility in a setting of a baseline conduction defect; the mild increase in serum potassium is likely incidental or may have a tangential effect on myocardial conduction; * Preserved LV function argues against a ventricular arrhythmia * If hypoglycemia and a primary neurological events are discounted, would exclude myocardial ischemia as a trigger for a ventricular arrhythmia. * If the grafted coronaries are not obstructive, options include an EP study, followed by a device implant (ICD /pacemaker/Loop recorder)" * on admission; required epi/cpr * ED spoke with Interventional cardiology: no cath at time of admission; admitted to the ICU * Echo 07/10 shows Moderately calcified aortic valve, Grade I - abnormal relaxation patter, EF > 70% * Per EP-->avoid conduction odell stresors * Cardiac performed by Dr. López: see below in CAD plan * Case discussed with Dr. Morgna and Dr. Marvin CAD s/p CABG * CABG was 3 years ago in 2014; patient had f/u cardiac cath which were noted to be cleared * Cardiac Cath (07/19/17): LAD 80% stenosis (just distal to touchdown per DR. López), RCA proximal stented, 30% stenosis distal to stent, 90% stenosis RPDA * Per DR. Morgan, cardiology note he discussed treatment plan with patient family (three sons) and is awaiting their decision * ASA 81mg PO daily * Plavix 75mg PO daily * Losartan 50mg PO daily * Avoid calcium channel, digoxin, Av odell until EP workup * Crestor 10mg POqHS Acute Respiratory Failure * Intubated in the field on admission * Extubated on 07/13/17 * Transferred out from ICU Seizure * Neurology (Dr. Cortes) on the case--> help appreciated * CT head negative; no TPA per neurology * CTA of the head showed moderate to significant stenosis left carotid bifurcation and left ICA. There are stenotic changes also seen involving both cavernous carotid arteries right greater than the left. There is no evidence of occlusion of the extracranial or intracranial arterial circulation. There is no evidence of large aneurysm nor vascular malformation. * Repeat CT scan of the head done 07/11/2017 showed no acute intracranial hemorrhage. Mild chronic white matter ischemic changes with scattered bilateral basal nuclei a lacunar type infarcts. Moderate generalized volume loss * EEG: metabolic encephalopathy w/o seizure * Discontinue Keppra 500mg Q12h and start Depakote 500mg Q12 * Cartiod duplex: negative Unsteady gait, weakness * PT eval and treat--> Recommending SONJA * Fall precautions Alterd mental status, Agitation * seroquel 25mg HS * MRI brain shows no acute separate brain infarction. No mass effect or intracranial hemorrhage (see full report) * Discontinue Keppra 500mg Q12h and start Depakote 500mg Q12 due to confusion Diabetes * A1C 7.1 on 07/10/17 * Accuchecks QAC and HS * Regular insulin sliding scale * Hypoglycemia protocol Uncontrolled Hypertension * Losartan 50mg PO daily * Increased Hydralazine 50mg PO TID Leukocytosis, resolved * likely reactive secondary to cardiac arrest and respiratory failure * infectious etology ruled out * Blood (07/10): no growth X 5days X2 * Urine culture (07/11) negative Anemia * Hgb stable 10.4 * Iron Studies reveal Iron Deficiency Anemia * Ferrlecit started Prophylactic measures * Fall precautions * seizure precautions * Protonix 40mg Iv daily * Heparin 5000units subq8H Disposition: Transfer to [facility] under Dr. Madden. EMTALA form completed and signed by patient's son All managed per attending Dr. Rea
--- NOTE | 2017-07-22 13:27 | CP.PCM.PN ---
Subjective - Date & Time of Evaluation Date of Evaluation: 07/22/17 Time of Evaluation: 12:30 - Subjective Subjective: cardaic cath reviewed by me. The patient has widely patent bypass grafts with [place] CAD and normal left ventricular function. There is no intervenable lesion. I recommend medical therapy for CAD. I discussed with the son. Objective - Vital Signs/Intake and Output Vital Signs (last 24 hours): Temp Pulse Resp BP Pulse Ox 98.0 F 76 18 123/69 96 07/22/17 08:00 07/22/17 12:14 07/22/17 08:00 07/22/17 09:32 07/22/17 08:00 Intake and Output: 07/22/17 07/22/17 06:59 18:59 Intake Total 30 Balance 30 - Medications Medications: Current Medications Acetaminophen (Tylenol 650mg/20.3ml Solution Ud) 650 mg PO Q6H PRN PRN Reason: Temp 100.4 or Greater. Last Admin: 07/20/17 09:26 Dose: 650 mg Albuterol/Ipratropium (Duoneb 3 Mg/0.5 Mg (3 Ml) Ud) 3 ml INH RQ4 PRN PRN Reason: Shortness of Breath Amlodipine Besylate (Norvasc) 5 mg PO DAILY [facility] Last Admin: 07/22/17 09:33 Dose: 5 mg Aspirin (Ecotrin) 81 mg PO DAILY [facility] Last Admin: 07/22/17 09:34 Dose: 81 mg Clopidogrel Bisulfate (Plavix) 75 mg PO DAILY [facility] Last Admin: 07/22/17 09:34 Dose: 75 mg Dextrose (Dextrose 50% Inj) 0 ml IVP .STAT PRN; Protocol PRN Reason: Hypoglycemia Protocol Dextrose (Glutose 15) 0 gm PO .ONCE PRN; Protocol PRN Reason: Hypoglycemia Protocol Famotidine (Pepcid) 20 mg PO BID [facility] Last Admin: 07/22/17 09:34 Dose: 20 mg Glucagon (Glucagen Diagnostic Kit) 0 mg IM .STAT PRN; Protocol PRN Reason: Hypoglycemia Protocol Heparin Sodium (Porcine) (Heparin) 5,000 units SC Q8 [facility] Last Admin: 07/18/17 14:58 Dose: Not Given Hydralazine HCl (Apresoline) 75 mg PO Q8H [facility] Last Admin: 07/22/17 09:34 Dose: 75 mg Insulin Human Regular (Novolin R) 0 unit SC ACHS [facility] PRN Reason: Protocol Last Admin: 07/22/17 11:57 Dose: 3 unit Losartan Potassium (Cozaar) 50 mg PO DAILY [facility] Last Admin: 07/22/17 09:33 Dose: 50 mg Quetiapine Fumarate (Seroquel) 25 mg PO HS [facility] Last Admin: 07/21/17 21:08 Dose: 25 mg Rosuvastatin Calcium (Crestor) 10 mg PO HS [facility] Last Admin: 07/21/17 21:08 Dose: 10 mg Valproate Sodium (Depakene Oral Soln) 500 mg PO Q12 [facility] Last Admin: 07/22/17 09:33 Dose: 500 mg - Labs Labs: 07/22/17 07:15 07/22/17 07:15 PT 15.3 SECONDS (9.7-12.2) H 07/12/17 05:59 INR 1.4 07/12/17 05:59 APTT 75 SECONDS (21-34) H D 07/12/17 05:59 Assessment and Plan (1) Cardiac arrest Status: Acute
--- NOTE | 2017-07-22 16:16 | CP.PCM.PN ---
Subjective - Date & Time of Evaluation Date of Evaluation: 07/22/17 Time of Evaluation: 13:20 - Subjective Subjective: Events and imaging reviewed Sitting in a chair verbalizes No distress Afebrile Normal venous pressures Faint left carotid bruit Midline chest scar PMI ? Normal heart sounds intensity No murmurs Abdomen:soft Extremities: no edema Responds; moves all four extremities; Objective - Vital Signs/Intake and Output Vital Signs (last 24 hours): Temp Pulse Resp BP Pulse Ox 98.0 F 76 18 123/69 96 07/22/17 08:00 07/22/17 12:14 07/22/17 08:00 07/22/17 09:32 07/22/17 08:00 Intake and Output: 07/22/17 07/22/17 06:59 18:59 Intake Total 30 400 Balance 30 400 - Medications Medications: Current Medications Acetaminophen (Tylenol 650mg/20.3ml Solution Ud) 650 mg PO Q6H PRN PRN Reason: Temp 100.4 or Greater. Last Admin: 07/20/17 09:26 Dose: 650 mg Albuterol/Ipratropium (Duoneb 3 Mg/0.5 Mg (3 Ml) Ud) 3 ml INH RQ4 PRN PRN Reason: Shortness of Breath Amlodipine Besylate (Norvasc) 5 mg PO DAILY [facility] Last Admin: 07/22/17 09:33 Dose: 5 mg Aspirin (Ecotrin) 81 mg PO DAILY [facility] Last Admin: 07/22/17 09:34 Dose: 81 mg Clopidogrel Bisulfate (Plavix) 75 mg PO DAILY [facility] Last Admin: 07/22/17 09:34 Dose: 75 mg Dextrose (Dextrose 50% Inj) 0 ml IVP .STAT PRN; Protocol PRN Reason: Hypoglycemia Protocol Dextrose (Glutose 15) 0 gm PO .ONCE PRN; Protocol PRN Reason: Hypoglycemia Protocol Famotidine (Pepcid) 20 mg PO BID [facility] Last Admin: 07/22/17 09:34 Dose: 20 mg Glucagon (Glucagen Diagnostic Kit) 0 mg IM .STAT PRN; Protocol PRN Reason: Hypoglycemia Protocol Heparin Sodium (Porcine) (Heparin) 5,000 units SC Q8 [facility] Last Admin: 07/18/17 14:58 Dose: Not Given Hydralazine HCl (Apresoline) 75 mg PO Q8H [facility] Last Admin: 07/22/17 09:34 Dose: 75 mg Insulin Human Regular (Novolin R) 0 unit SC ACHS [facility] PRN Reason: Protocol Last Admin: 07/22/17 11:57 Dose: 3 unit Losartan Potassium (Cozaar) 50 mg PO DAILY [facility] Last Admin: 07/22/17 09:33 Dose: 50 mg Quetiapine Fumarate (Seroquel) 25 mg PO HS [facility] Last Admin: 07/21/17 21:08 Dose: 25 mg Rosuvastatin Calcium (Crestor) 10 mg PO HS [facility] Last Admin: 07/21/17 21:08 Dose: 10 mg Valproate Sodium (Depakene Oral Soln) 500 mg PO Q12 [facility] Last Admin: 07/22/17 09:33 Dose: 500 mg - Labs Labs: 07/22/17 07:15 07/22/17 07:15 PT 15.3 SECONDS (9.7-12.2) H 07/12/17 05:59 INR 1.4 07/12/17 05:59 APTT 75 SECONDS (21-34) H D 07/12/17 05:59 Assessment and Plan - Assessment and Plan (Free Text) Assessment: Mr. Nettles presented with sudden transient unresponsiveness focal neurological deficits, seizures, complete heart block on a background of vascular risk factors, established vascular disease bifascicular conduction block The mechanism of transient loss of consciousness is unclear; Assuming a hemodynamic event (documentation and evolution unavailable) a bradyarrhythmia ( Lozoya Jimenez attack) is a possibility in a setting of a baseline conduction defect; the mild increase in serum potassium is likely incidental or may have a tangential effect on myocardial conduction Preserved LV function argues against a ventricular arrhythmia Hypoglycemia and neurological events do not seem to be primary drivers; cardiac cath showed obstructive lesions Given no coronary intervention being planned I would assume an arrhythmia precipitated the index event; in absence of incomplete documentation options at this point include: 1> advanced directives and conservative management until neurological recovery with a small calculated risk of recurrence of syncope/arrhythmia/ 2> pacemaker implant and a life vest until neuro recovery and then an EP study 3> EP studies followed by a device contingent on the results (Ventricular tachycardia inducibility) either a pacemaker or an ICD Family is conversant with these issues and would prefer option one and further pursue work up and 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 Rea Plan: as outlined
[2017-07-22 21:33] VITALS: RESP 20
[2017-07-23 07:34] LABS: CK-MB 1.29 ng/mL (0.0-3.38); TROPONIN I 0.043 ng/mL (0.00-0.120)
--- NOTE | 2017-07-23 07:38 | CP.PCM.PN ---
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 Family would like transfer to [place] for further workup evaluation. They seem to understand the EP plan which is well outlined by Dr Morgan. The son states he feels more comfortable going to [facility] where patient had previous [facility]. I have discussed case with Dr Madden at [place] for resumption of care. Awaiting bed. Objective - Vital Signs/Intake and Output Vital Signs (last 24 hours): Temp Pulse Resp BP Pulse Ox 98.5 F 103 H 20 128/76 99 07/22/17 23:00 07/23/17 04:00 07/22/17 23:00 07/22/17 23:00 07/22/17 23:00 Intake and Output: 07/23/17 07/23/17 06:59 18:59 Intake Total 30 Balance 30 - Medications Medications: Current Medications Acetaminophen (Tylenol 650mg/20.3ml Solution Ud) 650 mg PO Q6H PRN PRN Reason: Temp 100.4 or Greater. Last Admin: 07/20/17 09:26 Dose: 650 mg Albuterol/Ipratropium (Duoneb 3 Mg/0.5 Mg (3 Ml) Ud) 3 ml INH RQ4 PRN PRN Reason: Shortness of Breath Amlodipine Besylate (Norvasc) 5 mg PO DAILY [facility] Last Admin: 07/22/17 09:33 Dose: 5 mg Aspirin (Ecotrin) 81 mg PO DAILY [facility] Last Admin: 07/22/17 09:34 Dose: 81 mg Clopidogrel Bisulfate (Plavix) 75 mg PO DAILY [facility] Last Admin: 07/22/17 09:34 Dose: 75 mg Dextrose (Dextrose 50% Inj) 0 ml IVP .STAT PRN; Protocol PRN Reason: Hypoglycemia Protocol Dextrose (Glutose 15) 0 gm PO .ONCE PRN; Protocol PRN Reason: Hypoglycemia Protocol Famotidine (Pepcid) 20 mg PO BID [facility] Last Admin: 07/22/17 18:02 Dose: 20 mg Glucagon (Glucagen Diagnostic Kit) 0 mg IM .STAT PRN; Protocol PRN Reason: Hypoglycemia Protocol Heparin Sodium (Porcine) (Heparin) 5,000 units SC Q8 [facility] Last Admin: 07/18/17 14:58 Dose: Not Given Hydralazine HCl (Apresoline) 75 mg PO Q8H [facility] Last Admin: 07/23/17 03:00 Dose: 75 mg Insulin Human Regular (Novolin R) 0 unit SC ACHS [facility] PRN Reason: Protocol Last Admin: 07/22/17 21:01 Dose: Not Given Losartan Potassium (Cozaar) 50 mg PO DAILY [facility] Last Admin: 07/22/17 09:33 Dose: 50 mg Quetiapine Fumarate (Seroquel) 25 mg PO HS [facility] Last Admin: 07/22/17 21:29 Dose: 25 mg Rosuvastatin Calcium (Crestor) 10 mg PO HS [facility] Last Admin: 07/22/17 21:28 Dose: 10 mg Valproate Sodium (Depakene Oral Soln) 500 mg PO Q12 [facility] Last Admin: 07/22/17 21:29 Dose: 500 mg - Labs Labs: 07/22/17 07:15 07/22/17 07:15 PT 15.3 SECONDS (9.7-12.2) H 07/12/17 05:59 INR 1.4 07/12/17 05:59 APTT 75 SECONDS (21-34) H D 07/12/17 05:59 Assessment and Plan (1) Cardiac arrest Status: Acute
[2017-07-23 07:44] LABS: BASO % 0.5 % (0.0-2.0); EOS # 0.3 K/uL (0.0-0.7); EOS % 3.9 % (0.0-4.0); HEMOGLOBIN 10.5 g/dL (12.0-18.0); LYMPH # 0.9 K/uL (1.0-4.3); LYMPH % 13.3 % (20.0-40.0); MEAN CELL VOLUME 78.7 fL (80.0-94.0); MEAN CORPUSCULAR HEMOGLOBIN 25.1 pg (27.0-31.0); MEAN CORPUSCULAR HGB CONC 31.9 g/dL (33.0-37.0); MEAN PLATELET VOLUME 8.2 fL (7.2-11.7); MONO # 0.6 K/uL (0.0-0.8); MONO % 8.5 % (0.0-10.0); NEUT # 5.2 K/uL (1.8-7.0); NEUT % 73.8 % (50.0-75.0); RBC 4.19 Mil/uL (4.40-5.90); RED CELL DISTRIBUTION WIDTH 22.3 % (11.5-14.5)
[2017-07-23] MEDS: (Novolin R) Insulin Human Regular 100 units/ml vial SC SCH ×4 (07:51→22:43)
--- NOTE | 2017-07-23 08:01 | CP.PCM.PN ---
Subjective - Date & Time of Evaluation Date of Evaluation: 07/23/17 Time of Evaluation: 09:00 - Subjective Subjective: Progress Note for Dr. Rea Patient was seen and examined at bedside. Patient once again had an episode of agitation overnight. 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 Patient also complains of chest discomfort, stat EKG and ARTURO were negative. On my examination, patient's mental status was the same as days prior. Objective - Vital Signs/Intake and Output Vital Signs (last 24 hours): Temp Pulse Resp BP Pulse Ox 98.5 F 103 H 20 128/76 99 07/22/17 23:00 07/23/17 04:00 07/22/17 23:00 07/22/17 23:00 07/22/17 23:00 Intake and Output: 07/23/17 07/23/17 06:59 18:59 Intake Total 30 Balance 30 - Medications Medications: Current Medications Acetaminophen (Tylenol 650mg/20.3ml Solution Ud) 650 mg PO Q6H PRN PRN Reason: Temp 100.4 or Greater. Last Admin: 07/20/17 09:26 Dose: 650 mg Albuterol/Ipratropium (Duoneb 3 Mg/0.5 Mg (3 Ml) Ud) 3 ml INH RQ4 PRN PRN Reason: Shortness of Breath Amlodipine Besylate (Norvasc) 5 mg PO DAILY [facility] Last Admin: 07/22/17 09:33 Dose: 5 mg Aspirin (Ecotrin) 81 mg PO DAILY [facility] Last Admin: 07/22/17 09:34 Dose: 81 mg Clopidogrel Bisulfate (Plavix) 75 mg PO DAILY [facility] Last Admin: 07/22/17 09:34 Dose: 75 mg Dextrose (Dextrose 50% Inj) 0 ml IVP .STAT PRN; Protocol PRN Reason: Hypoglycemia Protocol Dextrose (Glutose 15) 0 gm PO .ONCE PRN; Protocol PRN Reason: Hypoglycemia Protocol Famotidine (Pepcid) 20 mg PO BID [facility] Last Admin: 07/22/17 18:02 Dose: 20 mg Glucagon (Glucagen Diagnostic Kit) 0 mg IM .STAT PRN; Protocol PRN Reason: Hypoglycemia Protocol Heparin Sodium (Porcine) (Heparin) 5,000 units SC Q8 [facility] Last Admin: 07/18/17 14:58 Dose: Not Given Hydralazine HCl (Apresoline) 75 mg PO Q8H [facility] Last Admin: 07/23/17 03:00 Dose: 75 mg Insulin Human Regular (Novolin R) 0 unit SC ACHS [facility] PRN Reason: Protocol Last Admin: 07/23/17 07:51 Dose: 2 unit Losartan Potassium (Cozaar) 50 mg PO DAILY [facility] Last Admin: 07/22/17 09:33 Dose: 50 mg Quetiapine Fumarate (Seroquel) 25 mg PO [facility] Last Admin: 07/22/17 21:29 Dose: 25 mg Rosuvastatin Calcium (Crestor) 10 mg PO HS [facility] Last Admin: 07/22/17 21:28 Dose: 10 mg Valproate Sodium (Depakene Oral Soln) 500 mg PO Q12 [facility] Last Admin: 07/22/17 21:29 Dose: 500 mg - Labs Labs: 07/23/17 07:35 07/22/17 07:15 PT 15.3 SECONDS (9.7-12.2) H 07/12/17 05:59 INR 1.4 07/12/17 05:59 APTT 75 SECONDS (21-34) H D 07/12/17 05:59 - Additional Findings Additional findings: - Constitutional Appears: Non-toxic, No Acute Distress - Head Exam Head Exam: ATRAUMATIC, NORMOCEPHALIC - Eye Exam Eye Exam: Normal appearance, PERRL - ENT Exam ENT Exam: Mucous Membranes Moist - Neck Exam Neck Exam: Normal Inspection - Respiratory Exam Respiratory Exam: Clear to Ausculation Bilateral, NORMAL BREATHING PATTERN. absent: Respiratory Distress - Cardiovascular Exam Cardiovascular Exam: +S1, +S2 - GI/Abdominal Exam GI & Abdominal Exam: Soft, Normal Bowel Sounds. absent: Tenderness - Extremities Exam Extremities Exam: Normal Inspection - Neurological Exam Neurological Exam: Alert, Awake, Oriented x3 - Psychiatric Exam Psychiatric exam: Normal Affect, Normal Mood - Skin Skin Exam: Dry, Warm Assessment and Plan - Assessment and Plan (Free Text) Assessment: Cardiac Arrest Complete Heart Block Bradyarrhytmia * Monitor on telemetry * Cardiology (Dr. Ledbetter) on case help appreciated * Dr. Marvin is covering while he is away * Cardiology-EPS (Dr. Morgan) on case help appreciated * Asking for cardiac cath to see if related to obstructive coronaries prior to EP/AICD * Per his note: "Assuming a hemodynamic event (documentation and evolution unavailable) a bradyarrhythmia (Lozoya Jimenez attack) is a possibility in a setting of a baseline conduction defect; the mild increase in serum potassium is likely incidental or may have a tangential effect on myocardial conduction; * Preserved LV function argues against a ventricular arrhythmia * If hypoglycemia and a primary neurological events are discounted, would exclude myocardial ischemia as a trigger for a ventricular arrhythmia. * If the grafted coronaries are not obstructive, options include an EP study, followed by a device implant (ICD /pacemaker/Loop recorder)" * on admission; required epi/cpr * ED spoke with Interventional cardiology: no cath at time of admission; admitted to the ICU * Echo 07/10 shows Moderately calcified aortic valve, Grade I - abnormal relaxation patter, EF > 70% * Per EP-->avoid conduction odell stresors * Cardiac performed by Dr. López: see below in CAD plan * Case discussed with Dr. Morgan and Dr. Marvin CAD s/p CABG * CABG was 3 years ago in 2014; patient had f/u cardiac cath which were noted to be cleared * Cardiac Cath (07/19/17): LAD 80% stenosis (just distal to touchdown per DR. López), RCA proximal stented, 30% stenosis distal to stent, 90% stenosis RPDA * Per DR. Morgan, cardiology note he discussed treatment plan with patient family (three sons) and is awaiting their decision * ASA 81mg PO daily * Plavix 75mg PO daily * Losartan 50mg PO daily * Avoid calcium channel, digoxin, Av odell until EP workup * Crestor 10mg POqHS Acute Respiratory Failure * Intubated in the field on admission * Extubated on 07/13/17 * Transferred out from ICU Seizure * Neurology (Dr. Cortes) on the case--> help appreciated * CT head negative; no TPA per neurology * CTA of the head showed moderate to significant stenosis left carotid bifurcation and left ICA. There are stenotic changes also seen involving both cavernous carotid arteries right greater than the left. There is no evidence of occlusion of the extracranial or intracranial arterial circulation. There is no evidence of large aneurysm nor vascular malformation. * Repeat CT scan of the head done 07/11/2017 showed no acute intracranial hemorrhage. Mild chronic white matter ischemic changes with scattered bilateral basal nuclei a lacunar type infarcts. Moderate generalized volume loss * EEG: metabolic encephalopathy w/o seizure * Discontinue Keppra 500mg Q12h and start Depakote 500mg Q12 * Cartiod duplex: negative Unsteady gait, weakness * PT eval and treat--> Recommending SONJA * Fall precautions Alterd mental status, Agitation * seroquel 25mg HS * MRI brain shows no acute separate brain infarction. No mass effect or intracranial hemorrhage (see full report) * Discontinue Keppra 500mg Q12h and start Depakote 500mg Q12 due to confusion Diabetes * A1C 7.1 on 07/10/17 * Accuchecks QAC and HS * Regular insulin sliding scale * Hypoglycemia protocol Uncontrolled Hypertension * Losartan 50mg PO daily * Increased Hydralazine 50mg PO TID Leukocytosis, resolved * likely reactive secondary to cardiac arrest and respiratory failure * infectious etology ruled out * Blood (07/10): no growth X 5days X2 * Urine culture (07/11) negative Anemia * Hgb stable 10.4 * Iron Studies reveal Iron Deficiency Anemia * Ferrlecit started Prophylactic measures * Fall precautions * seizure precautions * Protonix 40mg Iv daily * Heparin 5000units subq8H Disposition: Awaiting for transfer to [facility] under Dr. Madden. EMTALA form completed and consent signed by patient's son Otis Nettles . All managed per attending Dr. Rea
[2017-07-23 08:13] LABS: ALB/GLOB RATIO 1.1 (1.0-2.1); ALBUMIN 3.6 g/dL (3.5-5.0); ALT/SGPT 13 U/L (21-72); AST/SGOT 28 U/L (17-59); BLOOD UREA NITROGEN 18 mg/dL (9-20); CALCIUM 9.2 mg/dl (8.6-10.4); GFR AFRICAN-AMERICAN > 60; GFR NON-AFRICAN AMERICAN > 60
[2017-07-23] MEDS: Valproic Acid 250 mg/5 ml UD Cup PO SCH ×2 (09:10→22:06)
[2017-07-24] MEDS: (Novolin R) Insulin Human Regular 100 units/ml vial SC SCH ×3 (07:34→16:38)
[2017-07-24] MEDS: Valproic Acid 250 mg/5 ml UD Cup PO SCH (09:26)
--- NOTE | 2017-07-24 11:19 | CARD ---
APPROVED REPORT EKG Measurement Heart [id number] ME [id number] <Conclusion> Sinus tachycardia Right bundle branch block Left anterior fascicular block Bifascicular block Abnormal ECG
[2017-07-24 16:38] VITALS: BP 139/62; PULSE 77; TEMP 98.1; O2SAT 98
[2017-07-24] MEDS ORDERED: Latanoprost 2.5 ml Opht Soln OU SCH (22:00)
--- NOTE | 2017-07-26 07:50 | DS ---
The patient was admitted to the hospital with complaint of cardiac arrest. The patient resuscitated, and the patient extubated. The patient went to . Difficult to say about his baseline in the past. The patient is although family says he is to go to work and was seen by rejector, coronary artery disease Family wanted the patient transfer to [facility] for further EPS study. Kartik Rea MD
--- NOTE | 2017-07-26 07:51 | PN ---
DATE: 07/24/2017 SUBJECTIVE: An 81-year-old patient, no change in conditions. Supportive care. Xalatan eye drops ordered. The patient for possible transfer to [facility]. Kartik Rea MD
--- NOTE | 2017-08-09 13:48 | CATH ---
APPROVED REPORT INDICATION The indication(s) include : CHF. CASE TECHNIQUE The patient was brought electively to the Cardiac Catheterization Laboratory in a fasting state and was prepped and draped in a sterile manner. The right femoral groin was infiltrated with 2% Lidocaine subcutaneous anesthesia. A sheath was inserted into the right femoral artery without difficulty. Coronary angiography was performed using coronary diagnostic catheters. The left coronary system was accessed and visualized with a Diagnostic catheter. The right coronary system was accessed and visualized with a Diagnostic catheter. The left ventricle was accessed and visualized with a Diagnostic catheter. The left internal mammary artery was accessed and visualized with a Diagnostic catheter. The saphenous vein graft was accessed and visualized with a Diagnostic catheter. Left ventricular/Aortic Valve gradient assessed on pullback. Left ventriculogram was performed in MONZON projection. An aortogram of the ascending aorta was performed. Cardiac outputs were obtained by the Esther method. Pre-demployment femoral angiogram was performed . Closure device was deployed with a 6 Fr Angioseal without any complications. The patient tolerated the procedure well and there were no complications associated with the procedure. Vessel Analysis The patient's coronary anatomy is right dominant. The left main coronary artery is a medium size vessel . There is a 100% stenosis in the proximal segment. The left anterior descending artery is a large size vessel . There is a 100% stenosis proximal segment. The first diagonal branch is a medium size vessel . There is a 80% stenosis in the ostial segment. The circumflex artery is a large size vessel without stenosis. The right coronary artery is a medium size vessel with diffuse calcification noted throughout this vessel. The right posterior descending artery is a small size vessel with stenosis. There is a 80% stenosis in the ostial segment. The right posterolateral branch is a small size vessel without stenosis. The left internal mammary artery to the left main coronary artery is patent . SVG JUMP GRAFT TO DIAG AND SECOND OM IS PATENT Left Ventricle The left ventricular ejection fraction is estimated to be 65%. There was no gradient across the aortic valve upon pullback. Aorta AORTAGRAM REVEALED NO ADDITIONAL BYPASS GRAFT TO RCA. Conclusion Triple Vessel CAD WITH PATENT GARRIDO AND SVG JUMP GRAFTS Recommendations Daily ASA with Plavix for at least one year [facility] Medical Therapy
== END 2017-07-24 20:12 | disposition short-term general hospital (02) | DRG 286 ==
LOC: C.ER 19:16 → C.9I 21:02 → C.5S 07-15 13:09 → C.3T 07-15 20:30 → C.6T 07-16 10:54
PROVIDERS: ADMIT Internal Medicine Pulmonary Disease; ATTEND Internal Medicine Pulmonary Disease
PROC: 5A1945Z Respiratory Ventilation, 24-96 Consecutive Hours (ICD-10-PCS; principal; 2017-07-10)
PROC: 4A023N7 Measurement of Cardiac Sampling and Pressure, Left Heart, Percutaneous Approach (ICD-10-PCS; 2017-07-20)
PROC: B2151ZZ Fluoroscopy of Left Heart using Low Osmolar Contrast (ICD-10-PCS; 2017-07-20)
PROC: B2111ZZ Fluoroscopy of Multiple Coronary Arteries using Low Osmolar Contrast (ICD-10-PCS; 2017-07-20)
DX: I44.2 Atrioventricular block, complete (principal); I46.9 Cardiac arrest, cause unspecified; J96.00 Acute respiratory failure, unspecified whether with hypoxia or hypercapnia; G93.41 Metabolic encephalopathy; E87.2 Acidosis; I69.354 Hemiplegia and hemiparesis following cerebral infarction affecting left non-dominant side; I47.2 Ventricular tachycardia; R56.9 Unspecified convulsions; Z78.1 Physical restraint status; N40.0 Benign prostatic hyperplasia without lower urinary tract symptoms; Z95.1 Presence of aortocoronary bypass graft; Z95.5 Presence of coronary angioplasty implant and graft; I25.10 Atherosclerotic heart disease of native coronary artery without angina pectoris; I25.2 Old myocardial infarction; I35.8 Other nonrheumatic aortic valve disorders; F17.200 Nicotine dependence, unspecified, uncomplicated; E11.649 Type 2 diabetes mellitus with hypoglycemia without coma; E87.5 Hyperkalemia; I10 Essential (primary) hypertension; D50.9 Iron deficiency anemia, unspecified; I11.0 Hypertensive heart disease with heart failure; I50.9 Heart failure, unspecified; Z79.82 Long term (current) use of aspirin

== ENCOUNTER 2017-12-02 11:34 | Emergency (ER) | payer BC, MEDICARE ==
[2017-12-02 11:50] VITALS: BMI 28.5
[2017-12-02 12:06] LABS: INR 1.3; PROTHROMBIN TIME 13.9 SECONDS (9.7-12.2)
[2017-12-02 12:07] LABS: BASO # 0.1 K/uL (0.0-0.2); EOS # 0.2 K/uL (0.0-0.7); EOS % 2.4 % (0.0-4.0); HEMOGLOBIN 9.9 g/dL (12.0-18.0); LYMPH # 1.6 K/uL (1.0-4.3); LYMPH % 23.8 % (20.0-40.0); MEAN CELL VOLUME 79.2 fL (80.0-94.0); MEAN CORPUSCULAR HEMOGLOBIN 24.7 pg (27.0-31.0); MEAN CORPUSCULAR HGB CONC 31.2 g/dL (33.0-37.0); MEAN PLATELET VOLUME 9.1 fL (7.2-11.7); MONO # 0.6 K/uL (0.0-0.8); MONO % 8.4 % (0.0-10.0); NEUT # 4.3 K/uL (1.8-7.0); NEUT % 64.4 % (50.0-75.0); NRBC % 0.2 % (0.0-2.0); RBC 4.01 Mil/uL (4.40-5.90); RED CELL DISTRIBUTION WIDTH 18.1 % (11.5-14.5); WHITE BLOOD COUNT 6.7 K/uL (4.8-10.8)
--- NOTE | 2017-12-02 12:15 | C.PDOC ---
History Of Present Illness 82-year-old male, PMHx includes CAD and open heart surgery (s/p stents and pacemaker), presents to the emergency department with complaints of shortness of breath and mid-sternal chest pain he developed while climbing stairs at work. Patient was seen by the nurse at work, and was given Aspirin, after which he was sent to ED for further evaluation. Time Seen by Provider: 12/02/17 11:42 Chief Complaint (Nursing): Chest Pain History Per: Patient History/Exam Limitations: no limitations Past Medical History Reviewed: Historical Data, Nursing Documentation, Vital Signs Vital Signs: Last Vital Signs Temp 98.0 F 12/02/17 11:44 Pulse 78 12/02/17 11:44 Resp 16 12/02/17 11:44 BP 173/67 H 12/02/17 11:44 Pulse Ox 98 12/02/17 11:44 - Medical History PMH: Arthritis, COPD, Diabetes, HTN, Seizures Surgical History: CABG, Pacemaker - [facility] Procedures FLUOROSCOPY OF LEFT HEART USING LOW OSMOLAR CONTRAST (07/10/17) FLUOROSCOPY OF MULT COR ART USING L OSM CONTRAST (07/10/17) MEASURE OF CARDIAC SAMPL & PRESSURE, L HEART, PERC APPROACH (07/10/17) RESPIRATORY VENTILATION, 24-96 CONSECUTIVE HOURS (07/10/17) Family History: States: No Known Family Hx - Social History Hx Alcohol Use: No Hx Substance Use: No - Immunization History Hx Tetanus Toxoid Vaccination: No Hx Influenza Vaccination: No Hx Pneumococcal Vaccination: No Review Of Systems Except As Marked, All Systems Reviewed And Found Negative. Cardiovascular: Positive for: Chest Pain Respiratory: Positive for: Shortness of Breath Physical Exam - Physical Exam Appears: Non-toxic, No Acute Distress Skin: Warm, Dry, No Rash Head: Atraumatic, Normacephalic Eye(s): bilateral: Normal Inspection, PERRL, EOMI Nose: Normal Oral Mucosa: Moist Lips: Normal Appearing Neck: Normal ROM Cardiovascular: Rhythm Regular, No Murmur Respiratory: Normal Breath Sounds, No Accessory Muscle Use Gastrointestinal/Abdominal: Soft, No Tenderness Back: Normal Inspection Extremity: Normal ROM, No Deformity Neurological/Psych: Oriented x3, Normal Speech ED Course And Treatment - Laboratory Results Result Diagrams: 12/02/17 11:52 12/02/17 11:52 Lab Interpretation: No Acute Changes ECG: Interpreted By Me ECG Rhythm: Sinus Rhythm, R BBB ECG Interpretation: No Acute Changes Rate From EC O2 Sat by Pulse Oximetry: 98 Pulse Ox Interpretation: Normal (RA) - Radiology CXR: Interpreted by Me - Other Rad No standard instances X-Ray: Interpreted by Me, Viewed By Me, Read By Radiologist Interpretation: FINDINGS: LUNGS: Poor inspiration with low lung volumes, crowd ed bronchovascular markings and mild bibasilar atelectasis. Developing lower lobe infiltrates could be excluded with follow-up radiographs.. The central pulmonary vasculature is slightly increased as well. PLEURA: No pneumothorax or pleural fluid seen. CARDIOVASCULAR: Sternotomy wires again noted. Cardiomegaly. No change bipolar pacemaker/defibrillator. OSSEOUS STRUCTURES: No significant abnormalities. VISUALIZED UPPER ABDOMEN: Normal. OTHER FINDINGS: None. IMPRESSION: Poor inspiration with low lung volumes, crowded bronchovascular markings and mild bibasilar atelectasis. Developing lower lobe infiltrates could be excluded with follow-up radiographs. Progress Note: Patient request AMA. Treated with nitroglycerine and ASA [employer] Reassessment Condition: Improved - Physician Consult Information Physician Contacted: Anali Hobson Outcome Of Conversation: admit Against Medical Advice - AMA Patient Left Against Medical Advice: The patient declines admission to the hospital and wishes to leave the Emergency Department. This action is against my medical advice. This decision was made with informed refusal. The patient was told that admission to the hospital is necessary. Explanation of the reasons why were discussed. The risks of leaving were explained to the patient and include, but are not limited to, worsening of known or currently unknown conditions, permanent disability and from undiagnosed or untreated conditions. The patient has the capacity to make this informed decision and understands my explanation of the current medical problem and risks of leaving. The patient voluntarily accepts these risks and signed an AMA form documenting our conversation. The patient was given the opportunity to ask questions and reconsider. The patient was encouraged to return to the Emergency Department at any time for further care. Medical Decision Making Medical Decision Making: Patient refuded admission and wants to leave AMA and follow up with his PMD Disposition Discussed With .: Anali Hobson Doctor Will See Patient In The: Hospital - Disposition Disposition: AGAINST MEDICAL ADVICE Disposition Time: 14:30 Condition: STABLE Additional Instructions: Patient request discharge and will leave AMA Patient will follow up with his PMD Return to ED if any increase symptoms Follow up with your PMD for further evaluation Instructions: Chest Pain That Is Not Caused by the Heart (DC) Forms: [facility] (Croatian) - POA Present On Arrival: None - Clinical Impression Clinical Impression: Chest pain, Chest discomfort - Scribe Statement The provider has reviewed the documentation as recorded by the Scribe (Gracy Ospina) All medical record entries made by the Scribe were at my direction and personally dictated by me. I have reviewed the chart and agree that the record accurately reflects my personal performance of the history, physical exam, medical decision making, and the department course for this patient. I have also personally directed, reviewed, and agree with the discharge instructions and disposition.
[2017-12-02 12:23] LABS: ALB/GLOB RATIO 1.3 (1.0-2.1); ALBUMIN 3.8 g/dL (3.5-5.0); BLOOD UREA NITROGEN 16 mg/dL (9-20); GFR NON-AFRICAN AMERICAN > 60; LIPASE 36 U/L (23-300)
[2017-12-02 12:26] LABS: ALT/SGPT 26 U/L (21-72); AST/SGOT 35 U/L (17-59)
[2017-12-02 12:34] LABS: B-TYPE NATRIURETIC PEPTIDE 990 pg/mL (0-900)
[2017-12-02 12:42] VITALS: RESP 18
--- NOTE | 2017-12-02 13:00 | RAD ---
Date of service: 12/02/2017 PROCEDURE: CHEST RADIOGRAPH, 1 VIEW HISTORY: SOB COMPARISON: None available. FINDINGS: LUNGS: Poor inspiration with low lung volumes, crowded bronchovascular markings and mild bibasilar atelectasis. Developing lower lobe infiltrates could be excluded with follow-up radiographs.. The central pulmonary vasculature is slightly increased as well. PLEURA: No pneumothorax or pleural fluid seen. CARDIOVASCULAR: Sternotomy wires again noted. Cardiomegaly. No change bipolar pacemaker/defibrillator. OSSEOUS STRUCTURES: No significant abnormalities. VISUALIZED UPPER ABDOMEN: Normal. OTHER FINDINGS: None. IMPRESSION: Poor inspiration with low lung volumes, crowded bronchovascular markings and mild bibasilar atelectasis. Developing lower lobe infiltrates could be excluded with follow-up radiographs.
--- NOTE | 2017-12-02 14:27 | CP.PCM.HP ---
Present on Admission - Present on Admission Any Indicators Present on Admission: No Past Patient History - Infectious Disease Hx of Infectious Diseases: None - Past Medical History & Family History Past Medical History?: Yes - Past Social History Smoking Status: Former Smoker - CARDIAC Hx Hypertension: Yes Hx Pacemaker: Yes - PULMONARY Hx Chronic Obstructive Pulmonary Disease (COPD): Yes - NEUROLOGICAL Hx Seizures: Yes - ENDOCRINE/METABOLIC Hx Diabetes Mellitus Type 2: Yes - MUSCULOSKELETAL/RHEUMATOLOGICAL Hx Arthritis: Yes - GENITOURINARY/GYNECOLOGICAL Other/Comment: bph - PSYCHIATRIC Hx Substance Use: No - SURGICAL HISTORY Hx Coronary Artery Bypass Graft: Yes - ANESTHESIA Hx Anesthesia: Yes Hx Anesthesia Reactions: No Hx Malignant Hyperthermia: No Meds Allergies/Adverse Reactions: Allergies Allergy/AdvReac Type Severity Reaction Status Date / Time No Known Allergies Allergy Verified 07/10/17 19:23 Results - Vital Signs Recent Vital Signs: Last Vital Signs Temp 98.0 F 12/02/17 11:44 Pulse 66 12/02/17 12:41 Resp 18 12/02/17 12:41 BP 137/55 L 12/02/17 12:41 Pulse Ox 98 12/02/17 14:25 - Labs Result Diagrams: 12/02/17 11:52 12/02/17 11:52 Labs: Laboratory Results - last 24 hr 12/02/17 12/02/17 12/02/17 11:52 11:52 11:52 WBC 6.7 RBC 4.01 L Hgb 9.9 L Hct 31.8 L MCV 79.2 L MCH 24.7 L MCHC 31.2 L RDW 18.1 H Plt Count 130 MPV 9.1 Neut % (Auto) 64.4 Lymph % (Auto) 23.8 [place] % (Auto) 8.4 Eos % (Auto) 2.4 Baso % (Auto) 1.0 Neut # (Auto) 4.3 Lymph # (Auto) 1.6 [place] # (Auto) 0.6 Eos # (Auto) 0.2 Baso # (Auto) 0.1 PT 13.9 H INR 1.3 Sodium 140 Potassium 4.6 Chloride 104 Carbon Dioxide 25 Anion Gap 16 BUN 16 Creatinine 0.7 L Est GFR ( Amer) > 60 Est GFR (Non-Af Amer) > 60 Random Glucose 64 L Calcium 9.0 Total Bilirubin 0.4 AST 35 ALT 26 Alkaline Phosphatase 82 CK-MB (Mass) 1.30 Troponin I < 0.0120 NT-Pro-B Natriuret Pep 990 H Total Protein 6.7 Albumin 3.8 Globulin 3.0 Albumin/Globulin Ratio 1.3 Lipase 36
[2017-12-02 14:51] VITALS: BP 155/58; PULSE 82; TEMP 98.2
[2017-12-02 18:21] VITALS: O2SAT 98
--- NOTE | 2017-12-03 11:31 | CARD ---
APPROVED REPORT Date of service: 12/02/2017 EKG Measurement Heart [id number] <Conclusion> Normal sinus rhythm Right bundle branch block Left anterior fascicular block Bifascicular block Minimal voltage criteria for LVH, may be normal variant Septal infarct, age undetermined Abnormal ECG
== END 2017-12-02 14:52 | disposition left against medical advice (07) ==
LOC: C.ER 11:34
DX: R07.89 Other chest pain (principal); J44.9 Chronic obstructive pulmonary disease, unspecified; Z87.891 Personal history of nicotine dependence; E11.9 Type 2 diabetes mellitus without complications; I10 Essential (primary) hypertension

== ENCOUNTER 2018-05-02 22:14 | Emergency (ER) | payer BC, MEDICARE ==
[2018-05-02 22:15] VITALS: BMI 28.5
[2018-05-02 22:28] VITALS: TEMP 98; O2SAT 97
[2018-05-02 22:45] LABS: BASO # 0.1 K/uL (0.0-0.2); BASO % 1.1 % (0.0-2.0); EOS # 0.2 K/uL (0.0-0.7); HEMOGLOBIN 10.6 g/dL (12.0-18.0); LYMPH # 2.3 K/uL (1.0-4.3); LYMPH % 21.1 % (20.0-40.0); MEAN CELL VOLUME 79.9 fL (80.0-94.0); MEAN CORPUSCULAR HEMOGLOBIN 24.6 pg (27.0-31.0); MEAN CORPUSCULAR HGB CONC 30.8 g/dL (33.0-37.0); MEAN PLATELET VOLUME 8.8 fL (7.2-11.7); MONO % 9.2 % (0.0-10.0); NEUT # 7.2 K/uL (1.8-7.0); NEUT % 66.6 % (50.0-75.0); NRBC % 0.1 % (0.0-2.0); RBC 4.31 Mil/uL (4.40-5.90); RED CELL DISTRIBUTION WIDTH 18.2 % (11.5-14.5); WHITE BLOOD COUNT 10.9 K/uL (4.8-10.8)
[2018-05-02 22:50] LABS: INR 1.2; PROTHROMBIN TIME 12.7 SECONDS (9.7-12.2)
[2018-05-02 23:04] LABS: ALB/GLOB RATIO 1.4 (1.0-2.1); ALBUMIN 3.9 g/dL (3.5-5.0); ALT/SGPT 19 U/L (21-72); AST/SGOT 38 U/L (17-59); BLOOD UREA NITROGEN 29 mg/dL (9-20); CALCIUM 8.7 mg/dl (8.6-10.4); GFR NON-AFRICAN AMERICAN > 60
[2018-05-02 23:13] LABS: B-TYPE NATRIURETIC PEPTIDE 1000 pg/mL (0-900)
--- NOTE | 2018-05-02 23:18 | C.PDOC ---
History Of Present Illness 82 year old male brought in by his two sons after he accidentally took and extra dose of his diabetes medications. No change in mental status. Patient noted to have slightly lower sugar, juice and sandwich given. Sons do not want him to stay over night. Time Seen by Provider: 05/02/18 22:32 Chief Complaint (Nursing): Medical Clearance History Per: Patient, Family History/Exam Limitations: no limitations Onset/Duration Of Symptoms: Hrs Current Symptoms Are (Timing): Still Present Recent travel outside of the [place]: No Past Medical History Reviewed: Historical Data, Nursing Documentation, Vital Signs Vital Signs: Last Vital Signs Temp 98.0 F 05/02/18 22:21 Pulse 96 H 05/02/18 22:21 Resp 22 05/02/18 22:21 BP 153/91 H 05/02/18 22:21 Pulse Ox 97 05/02/18 22:21 - Medical History PMH: Arthritis, COPD, Diabetes, HTN, Seizures Denies: Chronic Kidney Disease Surgical History: CABG, Pacemaker - [facility] Procedures FLUOROSCOPY OF LEFT HEART USING LOW OSMOLAR CONTRAST (07/10/17) FLUOROSCOPY OF MULT COR ART USING L OSM CONTRAST (07/10/17) MEASURE OF CARDIAC SAMPL & PRESSURE, L HEART, PERC APPROACH (07/10/17) RESPIRATORY VENTILATION, 24-96 CONSECUTIVE HOURS (07/10/17) Family History: States: Unknown Family Hx - Social History Hx Alcohol Use: No Hx Substance Use: No - Immunization History Hx Tetanus Toxoid Vaccination: No Hx Influenza Vaccination: No Hx Pneumococcal Vaccination: No Review Of Systems Constitutional: Negative for: Fever, Chills Cardiovascular: Negative for: Chest Pain, Palpitations Respiratory: Negative for: Cough, Shortness of Breath Gastrointestinal: Negative for: Nausea, Vomiting Neurological: Negative for: Weakness, Numbness Physical Exam - Physical Exam Appears: Non-toxic, Other (Elderly male) Skin: Normal Color, Warm, Dry Head: Atraumatic, Normacephalic Eye(s): bilateral: Normal Inspection Oral Mucosa: Moist Neck: Normal, Supple Chest: Other (Midline sternotomy scar) Cardiovascular: Rhythm Regular Respiratory: Normal Breath Sounds, No Rales, No Rhonchi, No Wheezing Gastrointestinal/Abdominal: Soft, No Tenderness Neurological/Psych: Oriented x3, Normal Speech ED Course And Treatment - Laboratory Results Result Diagrams: 05/02/18 22:39 05/02/18 22:39 Lab Results: PT 12.7 SECONDS (9.7-12.2) H 05/02/18 22:39 INR 1.2 05/02/18 22:39 APTT 29 SECONDS (21-34) 05/02/18 22:39 Troponin I < 0.0120 ng/mL (0.00-0.120) 05/02/18 22:39 NT-Pro-B Natriuret Pep 1000 pg/mL (0-900) H 05/02/18 22:39 Total Bilirubin 0.3 mg/dL (0.2-1.3) 05/02/18 22:39 AST 38 U/L (17-59) 05/02/18 22:39 ALT 19 U/L (21-72) L D 05/02/18 22:39 Alkaline Phosphatase 101 U/L (38-126) 05/02/18 22:39 Total Protein 6.6 g/dL (6.3-8.3) 05/02/18 22:39 Albumin 3.9 g/dL (3.5-5.0) 05/02/18 22:39 Globulin 2.7 gm/dL (2.2-3.9) 05/02/18 22:39 Albumin/Globulin Ratio 1.4 (1.0-2.1) 05/02/18 22:39 Lab Interpretation: Normal (trop neg, bnp 1000) ECG: Interpreted By Hi ECG Rhythm: Sinus Rhythm, R BBB (LAFB) ECG Interpretation: Normal Rate From EC O2 Sat by Pulse Oximetry: 97 Pulse Ox Interpretation: Normal - Radiology CXR: Interpreted by Hi CXR Interpretation: Yes: No Acute Disease, Heart Size Reevaluation Time: 23:17 Reassessment Condition: Improved (ate sandwich and juice, baseline behavior per sons @ bedside) Medical Decision Making Medical Decision Making: one extra dose of Janumet normal to high bp polypharmacy- 12 meds all verified ? VPA to discuss with Neuro Disposition Doctor Will See Patient In The: Office Counseled Patient/Family Regarding: Studies Performed, Diagnosis - Disposition Referrals: [facility] [Outside] [email or web address] [Outside] [facility] [Outside] Celso Segura MD [Non-Staff] - Disposition: HOME/ ROUTINE Disposition Time: 23:18 Condition: GOOD Additional Instructions: continue same meds precautions for Polypharmacy consider discontinue Valproic Acid discuss with Neurology Instructions: Medication Safety, Adult Forms: [employer] (Japanese) - Clinical Impression Clinical Impression: Medical assessment, Polypharmacy - Scribe Statement The provider has reviewed the documentation as recorded by the [employer] [place] All medical record entries made by the Elisabetibe were at my direction and personally dictated by me. I have reviewed the chart and agree that the record accurately reflects my personal performance of the history, physical exam, medical decision making, and the department course for this patient. I have also personally directed, reviewed, and agree with the discharge instructions and disposition.
[2018-05-02 23:53] VITALS: BP 116/57; PULSE 77; RESP 18
--- NOTE | 2018-05-03 10:43 | RAD ---
Chest x-ray single frontal view History: Shortness of breath. Comparison: 12/02/2017 Findings: Mild venous congestion. Right hilar prominence. Increased markings at the left lung base may represent confluence of shadows with ribs and vessels. Left-sided pacemaker. Atherosclerotic calcification at the aortic knob. Enlarged ectatic aorta. Cardiomegaly. Status post median sternotomy. Degenerative changes in the spine and shoulders. Impression: Mild venous congestion. Right hilar prominence. Increased markings at the left lung base may represent confluence of shadows with ribs and vessels. Left-sided pacemaker. Atherosclerotic calcification at the aortic knob. Enlarged ectatic aorta. Cardiomegaly. Status post median sternotomy. Degenerative changes in the spine and shoulders.
--- NOTE | 2018-05-03 12:10 | CARD ---
APPROVED REPORT Date of service: 05/02/2018 EKG Measurement Heart [id number] <Conclusion> Normal sinus rhythm Right bundle branch block Left anterior fascicular block Bifascicular block Left ventricular hypertrophy with repolarization abnormality Cannot rule out Septal infarct, age undetermined Abnormal ECG
== END 2018-05-02 23:54 | disposition home or self-care (01) ==
LOC: C.ER 22:14
DX: Z00.00 Encounter for general adult medical examination without abnormal findings (principal)